=== PATIENT | male | born 1970 | race Caucasian/White ===

== ENCOUNTER 2022-08-21 12:14 | Inpatient (IN) | payer OTHER, SELFPAY ==
[2022-08-21] VITALS (19 sets, daily range): BP systolic 70–125; BP diastolic 47–100; PULSE 62–86; RESP 19–31; TEMP 33.2–37; O2SAT 99–100; BMI 22.9
--- NOTE | 2022-08-21 12:43 | EDS_ITS ---
HPI History of Present Illness Chief Complaint: General Illness Narrative Narrative: 52-year-old male past medical history of insulin-dependent diabetes, presents via EMS with mental status change, weakness, nausea and vomiting. History and physical is limited secondary to his mental status/patient condition. Per , he has not taken his insulin or Toujeo of which she is aware of the last 24 hours. His nausea and vomiting began a day or 2 ago, mainly yesterday morning, but subsided in the evening. This morning, when he awoke, he was weak and she states that his legs collapsed under him. He did not strike his head or lose consciousness but she states that he has been more confused today. She states that he is not been in diabetic ketoacidosis in the past of which she is aware. Patiently is mildly combative currently. Per EMS, blood sugar was in the 430s. [facility] Medical History (Updated 08/21/22 @ 13:54 by Billy Whelan MD) Santos's palsy Diabetes Home Medications insulin glargine U-300 conc 300 unit/mL (1.5 mL) subcutaneous pen (Toujeo SoloStar U-300 Insulin) 50 unit subcut DAILY 08/21/22 [History Last Taken Unknown] insulin lispro 100 unit/mL subcutaneous pen 15 unit subcut BID DIABETES 08/21/22 [History Last Taken Unknown] Allergy/AdvReac Type Severity Reaction Status Date / Time No Known Allergies Allergy Verified 08/21/22 12:24 Family History (Updated 08/21/22 @ 13:[address] Sean Ace MD) Other Diabetes Heart disease Surgical History (Updated 08/21/22 @ 14:[address] Sean Ace MD) Status post hernia repair Social History Smoking Status: Former smoker ROS ROS ED ROS Narrative Unable to obtain secondary to patient condition/mental status change. EXAM Physical Exam Narrative Exam Narrative: Afebrile. Vital signs noted. Mildly combative. HEENT: Normocephalic. Atraumatic. PERRL, EOMI. Neck soft and supple. No point tenderness or step off. Cardiovascular: Regular rate and rhythm. No murmurs, rubs, or gallops appreciated. Respiratory: No tachypnea. Lungs clear to auscultation bilaterally. Gastrointestinal: Abdomen soft, nontender, with normoactive bowel sounds. No rebound or guarding. Neurological: Awake. Alert. Nonfocal, nonlateralizing. Skin: No rash. Normal color. No pallor. Musculoskeletal: No pedal edema. Full range of motion extremities. Const Vital Signs: 08/21/22 12:15 08/21/22 12:25 08/21/22 13:17 Temperature 93 F L Temperature Source Axillary Pulse Rate 62 78 Respiratory Rate 21 H 20 H Respiratory Effort Normal Blood Pressure 112/100 H 70/55 L Blood Pressure Mean 104 60 Pulse Ox 100 100 Oxygen Delivery Method Nasal Cannula Room Air Oxygen Flow Rate (L/min) 2 08/21/22 14:08 08/21/22 14:09 08/21/22 14:43 Temperature 96.5 F L Temperature Source Temporal Pulse Rate 75 Respiratory Rate 27 H Respiratory Effort Blood Pressure 88/66 L 95/65 Blood Pressure Mean 73 75 Pulse Ox 99 100 Oxygen Delivery Method Room Air Oxygen Flow Rate (L/min) Sepsis Attestation Sepsis Alert: Yes Sepsis Attestation: Agree w/Sepsis (NO, dehydration from hyperglycemia/diabetic ketoacidosis.) MDM MDM MDM Narrative Medical decision making narrative: [id number] glucose reads high. DKA work-up was pursued. As he was bolused normal saline and bolused 14 units of lispro insulin then started on a drip. EKG obtained has too much baseline artifact, but was interpreted by myself as normal sinus rhythm at 69 bpm with bifascicular block, no STEMI. Chest x-ray interpreted by myself shows no evidence of acute process, no pneumothorax or infiltrate. Initial laboratory work shows elevated white count of 20.6, hemoglobin normal at 15.2 with hematocrit 53.8. Platelet count normal at 312. Venous blood gas shows a pH of 6.852 with a bicarb of 4.9. He was administered 1 ampoule of sodium bicarbonate intravenously. His electrolyte panel shows a sodium of 112 and a chloride of 69. I do feel that his sodium is excessively low secondary to his glucose of 1943. He did experience a drop in his blood pressure to 70/55 so IV boluses were continued to a total of 3 L. Second IV was placed. CO2 is low at 7.0 on his CMP with an anion gap of 36. BUN of 53 with creatinine of 5.06, no prior with which to compare. I do feel this is an acute kidney injury. There is a large acetone level noted in his blood. I do feel that he is in diabetic ketoacidosis given his low pH, and large acetone and excessively high sugars. Insulin drip is currently running. I will discuss the patient with Dr. Cole with intensive care and the hospitalist for admission to the ICU. Patient is in guarded condition. Critical care time 33 minutes. Patient did trigger sepsis alert given his hypotension and elevated white count of 20.6, but he is not tachycardic or febrile. I do feel this is more diabetic ketoacidosis and sepsis. Lab Data Attestation: I reviewed the patient's lab results. Labs: Laboratory Results - last 24 hr 08/21/22 08/21/22 08/21/22 12:19 12:19 12:19 WBC 20.6 H RBC 4.83 Hgb 15.2 Hct 53.8 MCV 111.4 H MCH 31.5 MCHC 28.3 L RDW Std Deviation 50.4 H RDW Coeff of Mika 12.0 Plt Count 312 MPV 10.2 Neut % (Auto) Not Reportable Absolute Neuts (auto) 15.9 H Absolute Lymphs (auto) 3.62 Total Counted 100 Neutrophils % (Manual) 73 H Band Neutrophils % 4 Lymphocytes % (Manual) 18 L Monocytes % (Manual) 1 Metamyelocytes % 1 Myelocytes % 3 H Diff Path Review May foll Platelet Estimate ADEQUATE RBC Morphology NORM C+C Sodium 112 L* Potassium 6.9 H* Chloride 69 L* Carbon Dioxide 7.0 L* Anion Gap 36 H BUN 53 H Creatinine 5.06 H Estim Creat Clear Calc 16.71 Est GFR (MDRD) Af Amer 16 L Est GFR (MDRD) Non-Af 13 L BUN/Creatinine Ratio 10.5 Glucose 1943 H* Calcium 8.2 L Total Bilirubin 1.00 AST 36 ALT 42 Alkaline Phosphatase 123 H Total Protein 7.2 Albumin 3.7 Globulin 3.5 Albumin/Globulin Ratio 1.1 Acetone Level LARGE H 08/21/22 13:59 WBC RBC Hgb Hct MCV MCH MCHC RDW Std Deviation RDW Coeff of Mika Plt Count MPV Neut % (Auto) Absolute Neuts (auto) Absolute Lymphs (auto) Total Counted Neutrophils % (Manual) Band Neutrophils % Lymphocytes % (Manual) Monocytes % (Manual) Metamyelocytes % Myelocytes % Diff Path Review Platelet Estimate RBC Morphology Sodium Potassium Chloride Carbon Dioxide Anion Gap BUN Creatinine Estim Creat Clear Calc Est GFR (MDRD) Af Amer Est GFR (MDRD) Non-Af BUN/Creatinine Ratio Glucose 1812 H* Calcium Total Bilirubin AST ALT Alkaline Phosphatase Total Protein Albumin Globulin Albumin/Globulin Ratio Acetone Level ABG Data ABG results: ABG 08/21/22 12:54 Specimen Type DRAKE VBG pH 6.85 L* VBG pO2 38 VBG HCO3 5 L VBG Total CO2 6 L VBG O2 Sat (Calc) 38 L VBG Base Excess -29 L POC Mix VBG pCO2 Pt Tmp 27.7 L Crit Call To/Read Back Yes Radiography Diagnostic Testing: Clinical Impression(s) from Imaging Studies Chest X-Ray 08/21/22 13:50 IMPRESSION: No radiographic evidence of acute cardiopulmonary disease. Electronically Signed: Jon Maldonado MD at 14:47 EST Reading Location ID and State: [address] [place] [address] , Service support , Critical Care Time Critical Care Time: Yes Critical care time (excluding procedures): 30-74 minutes (33), Including time spent:, Discussing w/Patient &/or Family/Md Allergy Immunology, Discussing w/Consultants, Arranging Admission or Transfer and Performing Direct Patient Care at Bedside Discharge Plan Dx/Rx/DC Orders Clinical Impression: Diabetic ketoacidosis, Mental status alteration, Acute kidney failure, Dehydration Disposition Disposition: Acute Care [facility]
[2022-08-21] MEDS: 0.9% Normal Saline 1,000 ML 999 ML IV ×2 (12:45→13:35)
[2022-08-21 12:51] LABS: Hematocrit 53.8 % (40-54); Hemoglobin 15.2 g/dL (13.0-16.5); Mean Corp Hgb Conc 28.3 g/dL (32-36); Mean Corpuscular Hgb 31.5 pg (27.0-32.0); Mean Corpuscular Volume 111.4 fL (80-94); Mean Platelet Vol. 10.2 fl (6.2-12.0); POSITIVE COUNT YES; POSITIVE MORPHOLOGY YES; Platelet Count 312 K/mm3 (150-450); RBC Distribution Width SD 50.4 fl (35.1-43.9); Red Blood Count 4.83 M/mm3 (4.6-6.2); White Blood Count 20.6 K/mm3 (4.4-11.0)
[2022-08-21] MEDS: LORazepam 2 MG/ML Syringe 1 MG IV (12:51)
[2022-08-21 13:01] LABS: Blood Gas Specimen Type VEN; VBG BASE EXCESS -29 mmol/L (-1.0-3.5); VBG Bicarbonate 5 mmol/L (22-26); VBG PO2 38 mmHg (25-40); VBG SO2 38 % (50-70); VBG TCO2 6 mmol/L (23-33); VBG pCO2 27.7 mmHg (41-51); VBG pH 6.85 (7.32-7.42)
[2022-08-21 13:02] LABS: Differential Indicated MANUAL DIFF
[2022-08-21] MEDS: Sodium Bicarbonate 8.4% 50 ML Syringe 50 MEQ IV ×2 (13:16→20:34)
[2022-08-21 13:20] LABS: ALB/GLOB Ratio 1.1 RATIO (0.9-2.4); AST(SGOT) 36 U/L (15-37); Alanine Aminotransfer ALT/SGPT 42 U/L (16-61); Albumin, Serum 3.7 g/dL (3.2-5.0); Alkaline Phosphatase 123 U/L (45-117); Anion Gap 36 (5-15); BUN 53 mg/dL (7-18); BUN/Creat Ratio 10.5 RATIO (10-20); Calcium,Total 8.2 mg/dL (8.5-10.1); Chloride 69 mmol/L (98-107); Creatinine, Serum 5.06 mg/dL (0.70-1.30); EST Glomerular Filtration Rate 13 mL/min (>60); Est Glom Filt Rate - Afr Amer 16 mL/min (>60); Estimated Creatinine Clearance 16.71 ml/min; Globulin 3.5 g/dL (2.2-4.2); Glucose 1943 mg/dL (74-106); Potassium 6.9 mmol/L (3.5-5.1); Protein, Total 7.2 g/dL (6.4-8.2); Sodium Level 112 mmol/L (136-145)
[2022-08-21 13:26] LABS: Lymphocyte 18 % (19-41); Metamyelocyte 1 % (0-1); Monocyte 1 % (0-10); Myelocyte 3 % (0-0); Neutrophil-Band 4 % (0-5); Neutrophil-Segmented 73 % (47-70); Platelet Estimate ADEQUATE (ADEQ); Red Cell Morphology NORM C+C NORMAL (NORM C&C); Total Cells Counted 100 (MANUAL DIFF)
[2022-08-21 13:27] LABS: Absolute Lymphocyte Count 3.62 X10^3/uL (0.83-4.51); Absolute Neutrophil Count 15.9 X10^3/uL (2.0-7.7)
--- NOTE | 2022-08-21 13:35 | PCM.HP.STD ---
HPI - General HPI Narrative DANIAL GARCIA, is a 52 M who presents to the hospital with altered mental status. He cannot provide much history cements the history was obtained by the and chart review. He has been having some nausea and vomiting for the last several days and has not taken his insulin, for at least the last 24 hours according to the . She stated that his generalized illness started about 2 days ago and he has been slowly getting worse. He is a type I diabetic and he is not in our computer system so we do not have any baseline labs. [facility] Medical History (Updated 08/21/22 @ 13:54 by Billy Whelan MD) Santos's palsy Diabetes Allergy/AdvReac Type Severity Reaction Status Date / Time No Known Allergies Allergy Verified 08/21/22 12:24 Family History (Updated 08/21/22 @ 13:[address] Sean Ace MD) Other Diabetes Heart disease Surgical History (Updated 08/21/22 @ 14:[address] Sean Ace MD) Status post hernia repair Social History Smoking Status: Former smoker ROS Review of Systems ROS Unobtainable: due to mental status Vital Signs Vital Signs Vital Signs: 08/21/22 12:15 08/21/22 12:25 08/21/22 13:17 Temperature 93 F L Temperature Source Axillary Pulse Rate 62 78 Respiratory Rate 21 H 20 H Respiratory Effort Normal Blood Pressure 112/100 H 70/55 L Blood Pressure Mean 104 60 Pulse Ox 100 100 Oxygen Delivery Method Nasal Cannula Room Air Oxygen Flow Rate (L/min) 2 Weight Weight: 150 lb 12.739 oz Body Mass Index (BMI) 22.9 Physical Exam Narrative General: Confused, agitated, will not open eyes to voice HEENT: Atraumatic, PERRLA, EOMI, Normocephalic Oral: Dry Mucosa Neck: Supple, No JVD Lungs: Clear to auscultation, Normal air movement, No rhonchi, No wheeze, No rales Cardiovascular: Regular rate, Regular Rhythm, Normal S1, Normal S2, No murmurs Abdomen: Soft, Non Tender, Non-Distended, No Hepato-splenomegaly Extremities: No edema, Capillary Refill Less than 3 Seconds Skin: No rashes, No breakdown Musculoskeletal: No Tenderness to Palpation of Joints or Extremities Neurological: Moves all extremities Psych/Mental Status: agitated Results Lab / Micro Data Result Diagrams: 08/21/22 12:19 08/21/22 12:19 Labs: Laboratory Results - last 24 hr 08/21/22 12:19: WBC 20.6 H, RBC 4.83, Hgb 15.2, Hct 53.8, MCV 111.4 H, MCH 31.5, MCHC 28.3 L, RDW Std Deviation 50.4 H, RDW Coeff of Mika 12.0, Plt Count 312, MPV 10.2, Neut % (Auto) Not Reportable, Absolute Neuts (auto) 15.9 H, Absolute Lymphs (auto) 3.62, Total Counted 100, Neutrophils % (Manual) 73 H, Band Neutrophils % 4, Lymphocytes % (Manual) 18 L, Monocytes % (Manual) 1, Metamyelocytes % 1, Myelocytes % 3 H, Diff Path Review December, Platelet Estimate ADEQUATE, RBC Morphology NORM C+C 08/21/22 12:19: Sodium 112 L*, Potassium 6.9 H*, Chloride 69 L*, Carbon Dioxide 7.0 L*, Anion Gap 36 H, BUN 53 H, Creatinine 5.06 H, Estim Creat Clear Calc 16.71, Est GFR (MDRD) Af Amer 16 L, Est GFR (MDRD) Non-Af 13 L, BUN/Creatinine Ratio 10.5, Glucose 1943 H*, Calcium 8.2 L, Total Bilirubin 1.00, AST 36, ALT 42, Alkaline Phosphatase 123 H, Total Protein 7.2, Albumin 3.7, Globulin 3.5, Albumin/Globulin Ratio 1.1 08/21/22 12:19: Acetone Level LARGE H ABG Data ABG results: ABG 08/21/22 12:54 Specimen Type DRAKE VBG pH 6.85 L* VBG pO2 38 VBG HCO3 5 L VBG Total CO2 6 L VBG O2 Sat (Calc) 38 L VBG Base Excess -29 L POC Mix VBG pCO2 Pt Tmp 27.7 L Crit Call To/Read Back Yes Assessment & Plan Assessment/Plan (1) Diabetic ketoacidosis: (2) Acute kidney failure: PLAN: Plan 1. Gastroenteritis with DKA and GONSALO ? According to family he is inconsistent with taking his insulin some months she is very consistent and proactive in others he is not ? She is lost 25 pounds according to the and his doctor thinks is due to having elevated ketones ? He has received 3 L of fluid in the ER as well as sodium bicarb. We will continue with aggressive fluid hydration as well as an insulin drip ? We will continue with the DKA protocol in the ICU, his pressure is responsive to fluids so can hold off on placement of a central line for pressors ? Leukocytosis is reactive ? She has pseudohyponatremia to 112 DVT: SCDs Charges/Coding Visit Charges Inpatient E&M: 48288 Init Hosp L2
--- NOTE | 2022-08-21 13:50 | RAD_ITS ---
INDICATION: Fever and cough EXAMINATION/TECHNIQUE: X-RAY - XR Chest 1 View COMPARISON: None. FINDINGS: LINES/DEVICES: EKG leads overlie the chest LUNGS: No consolidation, edema or effusion. No pneumothorax. MEDIASTINUM AND CARDIOVASCULAR STRUCTURES: Cardiac silhouette not enlarged. Central airways and mediastinal contour are unremarkable. BONES AND SOFT TISSUES: Unremarkable. RAD/Chest 1 View (Portable) IMPRESSION: No radiographic evidence of acute cardiopulmonary disease. Electronically Signed: Jon Maldonado MD at 14:47 EST ,
[2022-08-21 14:27] LABS: Glucose 1812 mg/dL (74-106)
[2022-08-21] MEDS: 0.9% Normal Saline 1,000 ML 1000 ML IV ×2 (14:30→14:37)
[2022-08-21 16:01] LABS: Glucose 1605 mg/dL (74-106)
--- NOTE | 2022-08-21 16:01 | ED.RN ---
lab called glucose 1605. DR GAYTAN AWARE
[2022-08-21] MEDS: 0.9% Normal Saline 1,000 ML 200 ML IV (16:03)
[2022-08-21 16:10] LABS: Mucous, Urine 0 SEEN /hpf (<or=2+)
[2022-08-21 16:23] LABS: Color, Urine Straw (Yellow); Glucose, Dipstick 1000 mg/dl (Normal); Ketone-Dipstick 50 mg/dl (Negative); Leukocyte Esterase-Dipstick Negative /ul (Negative); Nitrite-Dipstick Negative (Negative); Occult Blood-Urine 150 /ul (Negative); Protein-Dipstick 100 mg/dl (Negative); Specific Gravity, Urine 1.015 (1.002-1.030); Urine Bilirubin Dipstick Negative (Negative); Urine Clarity Cloudy (Clear); Urine Urobilinogen Normal (Normal)
[2022-08-21 16:40] LABS: Red Blood Cells-Urine 0-5 SEEN /hpf (0-5)
[2022-08-21 16:46] LABS: Bacteria 2+ /hpf (None Seen); Fine Granular Cast- Urine 0-5 SEEN /lpf (0-5); Hyaline Cast 0-5 SEEN /lpf (0-5); Squamous Epithelial Cells - UA 0-5 SEEN /hpf (0-5)
[2022-08-21 16:47] LABS: White Blood Cells 5-10 SEEN /hpf (0-5)
[2022-08-21 17:15] LABS: Bedside Glucose > 500 mg/dL (74-106)
[2022-08-21 17:15] LABS: Bedside Glucose > 500 mg/dL (74-106)
[2022-08-21 17:41] LABS: Glucose 1511 mg/dL (74-106)
[2022-08-21] MEDS: 0.9% Normal Saline 1,000 ML 500 ML IV (17:55)
[2022-08-21 19:28] LABS: Anion Gap 25 (5-15); BUN 53 mg/dL (7-18); BUN/Creat Ratio 11.1 RATIO (10-20); Calcium,Total 6.9 mg/dL (8.5-10.1); Chloride 95 mmol/L (98-107); Creatinine, Serum 4.79 mg/dL (0.70-1.30); EST Glomerular Filtration Rate 14 mL/min (>60); Est Glom Filt Rate - Afr Amer 17 mL/min (>60); Estimated Creatinine Clearance 17.65 ml/min; Glucose 1327 mg/dL (74-106); Sodium Level 129 mmol/L (136-145)
[2022-08-21] MEDS: Ondansetron 4 MG/2 ML Vial IV (20:21)
[2022-08-21] MEDS: 0.9% Saline Lock 10 ML Syringe IV ×2 (20:22→22:51)
[2022-08-21 21:08] LABS: Phosphorus 4.2 mg/dL (2.5-4.9)
[2022-08-21 21:10] LABS: Magnesium 3.3 mg/dL (1.6-2.6)
[2022-08-21 21:20] LABS: Glucose 1206 mg/dL (74-106)
[2022-08-21 22:00] LABS: Glucose 1191 mg/dL (74-106)
[2022-08-21] MEDS: 0.9% Normal Saline 1,000 ML 250 ML IV (22:51)
[2022-08-21 22:55] LABS: Allen Test Positive; Base Excess -18 mmol/L (-2 to +2); Bicarbonate 9.4 mmol/L (22-26); Blood Gas Specimen Type ART; PO2 96 mmHG (75-100); SITE R Radial; SO2 97 % (95-99); Total Carbon Dioxide 10 mmol/L; pCO2 20.7 mmHg (35-45); pH 7.27 (7.35-7.45)
[2022-08-21 23:23] LABS: Glucose 1077 mg/dL (74-106)
[2022-08-22] VITALS (31 sets, daily range): BP systolic 46–150; BP diastolic 29–80; PULSE 65–105; RESP 11–30; TEMP 37.2–38.2; O2SAT 89–100
[2022-08-22 00:17] LABS: Glucose 1058 mg/dL (74-106)
[2022-08-22 01:04] LABS: Anion Gap 20 (5-15); BUN 51 mg/dL (7-18); BUN/Creat Ratio 11.6 RATIO (10-20); Calcium,Total 6.8 mg/dL (8.5-10.1); Chloride 107 mmol/L (98-107); EST Glomerular Filtration Rate 15 mL/min (>60); Est Glom Filt Rate - Afr Amer 18 mL/min (>60); Estimated Creatinine Clearance 19.22 ml/min; Glucose 898 mg/dL (74-106); Potassium 3.7 mmol/L (3.5-5.1); Sodium Level 141 mmol/L (136-145)
[2022-08-22] MEDS: KCL 20MEQ in 0.45%NS 20 MEQ/1,000 ML IV.SOLN. 175 MEQ IV (01:21)
[2022-08-22] MEDS: proCHLORPERazine 10 MG/2 ML Vial 5 MG IV (01:21)
[2022-08-22] MEDS: Potassium Chloride 10mEq/100mL 10 MEQ/100 ML IV.SOLN. 100 MEQ IV BOLUS ×5 (01:39→11:58)
[2022-08-22] MEDS: 0.9% Saline Lock 10 ML Syringe IV ×4 (01:40→12:25)
[2022-08-22 02:13] LABS: Glucose 870 mg/dL (74-106)
[2022-08-22 03:16] LABS: Glucose 785 mg/dL (74-106)
[2022-08-22 04:11] LABS: Glucose 706 mg/dL (74-106)
[2022-08-22] MEDS: Ondansetron 4 MG/2 ML Vial IV ×2 (04:18→12:33)
[2022-08-22 04:56] LABS: Absolute Lymphocyte Count 0.52 X10^3/uL (0.83-4.51); Absolute Neutrophil Count 6.9 X10^3/uL (2.0-7.7); Basophil# 0.02 X10^3/uL; Basophil% 0.2 % (0-1); Hematocrit 35.8 % (40-54); Hemoglobin 13.2 g/dL (13.0-16.5); Lymphocyte # 0.52 X10^3/ul (0.83-4.51); Lymphocyte % 6.3 % (19-41); Mean Corp Hgb Conc 36.9 g/dL (32-36); Mean Corpuscular Hgb 31.3 pg (27.0-32.0); Mean Corpuscular Volume 84.8 fL (80-94); Mean Platelet Vol. 9.2 fl (6.2-12.0); Monocyte% 7.3 % (0-10); NRBC Flagged by Analyzer 0 % (0-5); Neutrophil # 6.94 X10^3/uL (2.7-7.7); Neutrophil % 83.9 % (47-70); POSITIVE DIFFERENTIAL YES; Platelet Count 139 K/mm3 (150-450); RBC Distribution Width CV 11.7 % (11.6-14.6); RBC Distribution Width SD 35.7 fl (35.1-43.9); Red Blood Count 4.22 M/mm3 (4.6-6.2); White Blood Count 8.3 K/mm3 (4.4-11.0)
[2022-08-22 05:06] LABS: Differential Indicated SCAN CRITERIA MET
[2022-08-22 05:15] LABS: Anion Gap 12 (5-15); BUN 51 mg/dL (7-18); BUN/Creat Ratio 11.8 RATIO (10-20); Calcium,Total 7.2 mg/dL (8.5-10.1); Chloride 114 mmol/L (98-107); Creatinine, Serum 4.34 mg/dL (0.70-1.30); EST Glomerular Filtration Rate 15 mL/min (>60); Est Glom Filt Rate - Afr Amer 19 mL/min (>60); Estimated Creatinine Clearance 19.48 ml/min; Glucose 639 mg/dL (74-106); Potassium 3.5 mmol/L (3.5-5.1); Sodium Level 145 mmol/L (136-145)
[2022-08-22 05:29] LABS: Cholesterol 154 mg/dL (200); High Density Lipoprotein 48 mg/dL; Lipase 778 U/L (73-393); Triglycerides 167 mg/dL; Very Low Density Lipoprotein 33 mg/dL (5-40)
[2022-08-22] MEDS: Haloperidol Lactate 5 MG/ML Vial 1 MG IV ×2 (05:30→12:25)
--- NOTE | 2022-08-22 05:50 | PCM.HOSP.N ---
Hospitalist Note Patient with onset severe agitation. Attempting to get out of bed and violent toward staff. Will initiate haldol and adjust dosing pending first initial response to lower dose.
[2022-08-22 06:14] LABS: Amphetamine Urine VISTA NEGATIVE (<1000 ng/mL); Barbiturate Urine VISTA NEGATIVE (< 200 ng/mL); Benzodiazepine Urine VISTA NEGATIVE (< 200 ng/mL); Cocaine Urine VISTA NEGATIVE (< 300 ng/mL); Ecstacy Urine VISTA NEGATIVE (< 500 ng/mL); Methadone Urine VISTA NEGATIVE (< 300 ng/mL); PCP Urine VISTA NEGATIVE (< 25 ng/mL); THC Urine VISTA NEGATIVE (< 50 ng/mL); Vista UDS pH Range 5
--- NOTE | 2022-08-22 06:21 | EX.PCM.CONCC ---
Assessment & Plan Assessment/Plan (1) Diabetic ketoacidosis: PLAN: Plan RECOMMENDATIONS: 1. Continue management of DKA per protocol with continuous insulin infusion and supplemental IV fluids. 2. Once anion gap has been closed x2, transition to basal and sliding scale insulin coverage. 3. The patient should remain n.p.o. for now. 4. Aggressive electrolyte repletion as needed. IMPRESSIONS: 1. Diabetic ketoacidosis Likely secondary to outpatient noncompliance with prescribed medical therapy. The patient presented with significant DKA with profound anion gap metabolic acidosis. He has responded appropriately to aggressive fluid resuscitation, electrolyte repletion and continuous insulin infusion. This regimen will be continued until anion gap is closed x2. Following this, the patient will be transition to basal and sliding scale insulin coverage. He will require diabetic education once medically stabilized. Hemoglobin A1c is pending. 2. Encephalopathy Most likely metabolic in etiology. Anticipate slow recovery with stabilization of his underlying metabolic derangements. Continue supportive measures as noted above. 3. Acute kidney injury Most likely prerenal in etiology in the setting of significant intravascular volume depletion due to diabetic ketoacidosis. The patient is being aggressively fluid resuscitated. Creatinine is slowly improving with volume expansion. Continue to monitor urine output. No current indication for renal replacement therapy. This note was generated with [employer] dictation software. It may contain incorrect words, spelling, and punctuation that were not noted in checking the note before signing. HPI Consult Data Date of Consult: 08/23/22 HPI Narrative Reason for Consultation: DKA HPI Narrative: The patient is a 52-year-old male, with a history as outlined below, who presented to the emergency department on August 21 with altered mentation. According to the patient's , he was recently diagnosed with diabetes mellitus and has had questionable outpatient compliance with his medication regimen. The patient was experiencing associated nausea and vomiting prior to his hospitalization. On presentation to the emergency department, the patient was documented to have a temperature of 93 ?F. He was otherwise hemodynamically stable on room air. Initial laboratory evaluation revealed a white blood cell count of 20,000. Initial chemistry profile was notable for a sodium of 112, potassium of 6.9, chloride of 69, bicarbonate of 7.0, anion gap of 36 and creatinine of 5.06. Serum glucose was elevated at 1943. Urinalysis was negative for nitrites and leukocyte Estrace. 2+ urine bacteria was noted. Toxicology screen was negative with a large serum acetone level noted. Chest x-ray demonstrated no acute cardiopulmonary process. In the emergency department, the patient received supplemental IV fluid hydration was started on a continuous insulin infusion. He was subsequently admitted to the medical intensive care unit for further management of his DKA. [facility] Medical History (Updated 08/21/22 @ 13:54 by Billy Whelan MD) Santos's palsy Diabetes Home Medications insulin glargine U-300 conc 300 unit/mL (1.5 mL) subcutaneous pen (Toujeo SoloStar U-300 Insulin) 50 unit subcut DAILY 08/21/22 [History Last Taken Unknown] insulin lispro 100 unit/mL subcutaneous pen 15 unit subcut BID DIABETES 08/21/22 [History Last Taken Unknown] Allergy/AdvReac Type Severity Reaction Status Date / Time No Known Allergies Allergy Verified 08/21/22 12:24 Family History Other Diabetes Heart disease Surgical History Status post hernia repair Social History Smoking Status: Former smoker ROS Review of Systems ROS Unobtainable: due to mental status Physical Exam Const Constitutional Narrative: The patient is somewhat lethargic this morning and speaking in a nonsensical manner. HEENT normocephalic and head/scalp atraumatic HEENT Narrative: Dry mucous membranes Eyes PERRL, EOMs intact bilaterally and conjunctivae normal Neck supple General: trachea midline Chest inspection of chest normal Resp normal respiratory effort Auscultation: Negative for rales, rhonchi or wheezes Cardio S1 normal heart sound and S2 normal heart sound Rate: tachycardic GI normal to inspection, nondistended, normoactive bowel sounds Extremity no clubbing, cyanosis or edema Skin no rashes or lesions noted Neuro no focal motor deficits Psych Activity / Motor Behavior: restless Lab / Micro Data Result Diagrams: 08/23/22 04:51 08/23/22 04:51 Labs: Laboratory Results - last 24 hr 08/21/22 12:19: WBC 20.6 H, RBC 4.83, Hgb 15.2, Hct 53.8, MCV 111.4 H, MCH 31.5, MCHC 28.3 L, RDW Std Deviation 50.4 H, RDW Coeff of Mika 12.0, Plt Count 312, MPV 10.2, Neut % (Auto) Not Reportable, Absolute Neuts (auto) 15.9 H, Absolute Lymphs (auto) 3.62, Total Counted 100, Neutrophils % (Manual) 73 H, Band Neutrophils % 4, Lymphocytes % (Manual) 18 L, Monocytes % (Manual) 1, Metamyelocytes % 1, Myelocytes % 3 H, Diff Path Review December, Platelet Estimate ADEQUATE, RBC Morphology NORM C+C 08/21/22 12:19: Sodium 112 L*, Potassium 6.9 H*, Chloride 69 L*, Carbon Dioxide 7.0 L*, Anion Gap 36 H, BUN 53 H, Creatinine 5.06 H, Estim Creat Clear Calc 16.71, Est GFR (MDRD) Af Amer 16 L, Est GFR (MDRD) Non-Af 13 L, BUN/Creatinine Ratio 10.5, Glucose 1943 H*, Calcium 8.2 L, Total Bilirubin 1.00, AST 36, ALT 42, Alkaline Phosphatase 123 H, Total Protein 7.2, Albumin 3.7, Globulin 3.5, Albumin/Globulin Ratio 1.1 08/21/22 12:19: Acetone Level LARGE H 08/21/22 12:31: POC Glucose > 500 H* 08/21/22 13:39: POC Glucose > 500 H* 08/21/22 13:59: Glucose 1812 H* 08/21/22 14:33: Sodium Cancelled, Potassium Cancelled, Chloride Cancelled, Carbon Dioxide Cancelled, Anion Gap Cancelled, BUN Cancelled, Creatinine Cancelled, Estim Creat Clear Calc Cancelled, Est GFR (MDRD) Af Amer Cancelled, Est GFR (MDRD) Non-Af Cancelled, BUN/Creatinine Ratio Cancelled, Glucose Cancelled, Calcium Cancelled 08/21/22 15:28: Glucose 1605 H* 08/21/22 15:37: Urine Color Straw, Urine Clarity Cloudy, Urine pH 6.0, Ur Specific Blanding 1.015, Urine Protein 100 H, Urine Glucose (UA) 1000 H, Urine Ketones 50 H, Urine Occult Blood 150 H, Urine Nitrite Negative, Urine Bilirubin Negative, Urine Urobilinogen Normal, Ur Leukocyte Esterase Negative, Urine RBC 0-5 SEEN, Urine WBC 5-10 SEEN, Ur Squamous Epith Cells 0-5 SEEN, Urine Bacteria 2+, Hyaline Casts 0-5 SEEN, Fine Granular Casts 0-5 SEEN, Urine Mucus 0 SEEN 08/21/22 17:05: Glucose 1511 H* 08/21/22 18:58: Sodium 129 L, Potassium 5.0, Chloride 95 L, Carbon Dioxide 9.0 L*, Anion Gap 25 H, BUN 53 H, Creatinine 4.79 H, Estim Creat Clear Calc 17.65, Est GFR (MDRD) Af Amer 17 L, Est GFR (MDRD) Non-Af 14 L, BUN/Creatinine Ratio 11.1, Glucose 1327 H*, Calcium 6.9 L 08/21/22 18:58: Glucose Cancelled 08/21/22 18:58: Magnesium 3.3 H 08/21/22 18:58: Phosphorus 4.2 08/21/22 20:30: Glucose 1206 H* 08/21/22 21:38: Glucose 1191 H* 08/21/22 22:50: Glucose 1077 H* 08/21/22 23:38: Glucose 1058 H* 08/22/22 00:40: Sodium 141, Potassium 3.7, Chloride 107, Carbon Dioxide 14.0 L, Anion Gap 20 H, BUN 51 H, Creatinine 4.40 H, Estim Creat Clear Calc 19.22, Est GFR (MDRD) Af Amer 18 L, Est GFR (MDRD) Non-Af 15 L, BUN/Creatinine Ratio 11.6, Glucose 898 H*, Calcium 6.8 L 08/22/22 01:35: Glucose 870 H* 08/22/22 02:35: Glucose 785 H* 08/22/22 03:30: Glucose 706 H* 08/22/22 04:45: Sodium 145, Potassium 3.5, Chloride 114 H, Carbon Dioxide 19.0 L, Anion Gap 12, BUN 51 H, Creatinine 4.34 H, Estim Creat Clear Calc 19.48, Est GFR (MDRD) Af Amer 19 L, Est GFR (MDRD) Non-Af 15 L, BUN/Creatinine Ratio 11.8, Glucose 639 H*, Calcium 7.2 L 08/22/22 04:45: WBC 8.3, RBC 4.22 L, Hgb 13.2, Hct 35.8 L, MCV 84.8 D, MCH 31.3, MCHC 36.9 H D, RDW Std Deviation 35.7, RDW Coeff of Mika 11.7, Plt Count 139 L, MPV 9.2, Immature Gran % (Auto) 2.300 H, Neut % (Auto) 83.9 H, Lymph % (Auto) 6.3 L, Randall % (Auto) 7.3, Eos % (Auto) 0.0, Baso % (Auto) 0.2, Absolute Neuts (auto) 6.9, Absolute Lymphs (auto) 0.52 L, Nucleated RBC % 0 08/22/22 04:45: Triglycerides 167, Cholesterol 154, LDL Cholesterol 73, VLDL Cholesterol 33, HDL Cholesterol 48, Lipase 778 H 08/22/22 05:45: Urine Opiates Screen NEGATIVE, Urine Methadone Screen NEGATIVE, Ur Barbiturates Screen NEGATIVE, Ur Phencyclidine Scrn NEGATIVE, Ur Amphetamines Screen NEGATIVE, MDMA (Ecstasy) Screen NEGATIVE, U Benzodiazepines Scrn NEGATIVE, Urine Cocaine Screen NEGATIVE, U Cannabinoids Screen NEGATIVE, Ur Drug Screen Comment ABG Data ABG results: ABG 08/21/22 08/21/22 12:54 22:52 Specimen Type DRAKE ART Sample Site R Radial pH 7.27 L Bicarbonate Actual 9.4 L Total CO2 10 Base Excess -18 L O2 Saturation 97 ABG pCO2 20.7 L ABG pO2 96 Adeel Test Positive VBG pH 6.85 L* VBG pO2 38 VBG HCO3 5 L VBG Total CO2 6 L VBG O2 Sat (Calc) 38 L VBG Base Excess -29 L POC Mix VBG pCO2 Pt Tmp 27.7 L Crit Call To/Read Back Yes Radiology Impression Chest X-Ray 08/21/22 13:50 IMPRESSION: No radiographic evidence of acute cardiopulmonary disease. Electronically Signed: Jon Maldonado MD at 14:47 EST , Charges/Coding Visit Charges Inpatient E&M: 81148 Init Hosp L3
[2022-08-22 06:22] LABS: Glucose 574 mg/dL (74-106)
[2022-08-22] MEDS: Haloperidol Lactate 5 MG/ML Vial 2 MG IV (06:24)
[2022-08-22 07:01] LABS: Glucose 514 mg/dL (74-106)
[2022-08-22] MEDS: Ziprasidone IM 20 MG/ML VIAL IM (07:13)
[2022-08-22] MEDS: Lactated Ringers 1,000 ML 999 ML IV ×4 (07:59→16:30)
[2022-08-22 08:16] LABS: Hemoglobin A1c 11.8 % (3.8-5.6)
[2022-08-22] MEDS: KCL 20MEQ in 0.45%NS 20 MEQ/1,000 ML IV.SOLN. 150 MEQ IV (09:42)
[2022-08-22 10:09] LABS: Anion Gap 9 (5-15); BUN 48 mg/dL (7-18); BUN/Creat Ratio 12.3 RATIO (10-20); Calcium,Total 7.5 mg/dL (8.5-10.1); Chloride 118 mmol/L (98-107); EST Glomerular Filtration Rate 17 mL/min (>60); Est Glom Filt Rate - Afr Amer 21 mL/min (>60); Estimated Creatinine Clearance 21.68 ml/min; Glucose 325 mg/dL (74-106); Sodium Level 149 mmol/L (136-145)
--- NOTE | 2022-08-22 10:16 | RAD_ITS ---
INDICATION: Fever EXAMINATION/TECHNIQUE: X-RAY - XR Chest 1 View COMPARISON: Yesterday FINDINGS: Support devices: None. Similar extent and distribution of hazy bilateral opacities. No sizable pleural effusion or pneumothorax. Heart size is stable. Bones and soft tissues are unchanged. RAD/Chest 1 View (Portable) IMPRESSION: No significant interval change with similar extent and distribution of trace bilateral opacities which could relate to atelectasis and/or multifocal pneumonia. Electronically Signed: Alex Ordoñez, at 11:05 EST ,
[2022-08-22 10:20] LABS: Bedside Glucose 391 mg/dL (74-106)
[2022-08-22 10:20] LABS: Bedside Glucose 312 mg/dL (74-106)
[2022-08-22 10:20] LABS: Bedside Glucose 341 mg/dL (74-106)
[2022-08-22 11:30] LABS: Bedside Glucose 284 mg/dL (74-106)
--- NOTE | 2022-08-22 12:15 | CHAPLAIN ---
Type of Pastoral Visit _x__ Initial Visit ___ Follow-up Visit ___ On-call Visit ___ General Patient Visit ___ Spiritual Assessment ___ Family Conference ___ Bereavement ___ Rapid Response ___ Code Blue ___ Other (describe below) Pastoral Care Referral From ___ Patient _x__ Family ___ Nurse ___ Physician ___ Knitter Mechanic ___ Paper Rewinder ___ Other (describe below) Sacrament/Intervention ___ Active listening ___ Anointing ___ Pentecostal ___ Bereavement ___ Communion ___ Aleena exploration ___ ___ Life review _x__ Prayer ___ Reconciliation ___ Sacrament of Sick _x__ Supportive presence ___ Wedding ___ Other (describe below) Pastoral Comments patient is sleeping and per report of spouse he has been confused; spouse and daughter are in the room; spouse states that this is first time of illness for patient; spouse is a bit tearful; offer of support for family; presence and prayer welcomed; pt and spouse attend a local mu-ism
[2022-08-22 12:20] LABS: Pathologist Review Reviewed
[2022-08-22 12:20] LABS: Bedside Glucose 249 mg/dL (74-106)
[2022-08-22] MEDS: Dext 5%-0.45% NS 1,000 ML 150 ML IV (12:24)
[2022-08-22 13:30] LABS: Bedside Glucose 288 mg/dL (74-106)
[2022-08-22] MEDS: Insulin Lispro 100 UNIT/ML INSULN.PEN SC ×2 (14:24→17:24)
[2022-08-22] MEDS: Insulin Glargine-YFGN 100 UNIT/ML Pen 25 UNIT SC (14:25)
[2022-08-22 14:36] LABS: Bedside Glucose 279 mg/dL (74-106)
--- NOTE | 2022-08-22 14:41 | PN.HOSP_ITS ---
Subjective Subjective Developed some agitation and restlessness overnight, discussed with the family he does not drink fairly heavily 4-5 times a week. We will continue with the Precedex drip Objective Data Objective Data Vital Signs: Vital Signs Temp Pulse Resp BP Pulse Ox O2 Del Method O2 Flow Rate 100.5 F H 87 19 H 103/62 96 Room Air 2 08/22/22 14:00 08/22/22 14:00 08/22/22 14:00 08/22/22 14:00 08/22/22 14:00 08/22/22 14:00 08/21/22 12:15 Oxygen Flow Rate (L/min) 2 Oxygen Delivery Method Room Air Weight: 154 lb 5.177 oz Body Mass Index (BMI) 22.9 Intake & Output: Intake and Output for Last 24 Hours 08/21/22 08/22/22 08/23/22 03:59 03:59 03:59 Intake Total 6754.27 / 6754.27 4273.42 / 4273.42 Output Total 1450 / 1450 1800 / 1800 Balance 5304.27 / 5304.27 2473.42 / 2473.42 Lab / Micro Data Result Diagrams: 08/22/22 04:45 08/22/22 09:40 Labs: Laboratory Results - last 24 hr 08/21/22 12:19: Diff Path Review Reviewed 08/21/22 12:31: POC Glucose > 500 H* 08/21/22 13:39: POC Glucose > 500 H* 08/21/22 14:33: Sodium Cancelled, Potassium Cancelled, Chloride Cancelled, Carbon Dioxide Cancelled, Anion Gap Cancelled, BUN Cancelled, Creatinine Cancelled, Estim Creat Clear Calc Cancelled, Est GFR (MDRD) Af Amer Cancelled, Est GFR (MDRD) Non-Af Cancelled, BUN/Creatinine Ratio Cancelled, Glucose Cancelled, Calcium Cancelled 08/21/22 15:28: Glucose 1605 H* 08/21/22 15:37: Urine Color Straw, Urine Clarity Cloudy, Urine pH 6.0, Ur Specific [place] 1.015, Urine Protein 100 H, Urine Glucose (UA) 1000 H, Urine Ketones 50 H, Urine Occult Blood 150 H, Urine Nitrite Negative, Urine Bilirubin Negative, Urine Urobilinogen Normal, Ur Leukocyte Esterase Negative, Urine RBC 0-5 SEEN, Urine WBC 5-10 SEEN, Ur Squamous Epith Cells 0-5 SEEN, Urine Bacteria 2+, Hyaline Casts 0-5 SEEN, Fine Granular Casts 0-5 SEEN, Urine Mucus 0 SEEN 08/21/22 17:05: Glucose 1511 H* 08/21/22 18:58: Sodium 129 L, Potassium 5.0, Chloride 95 L, Carbon Dioxide 9.0 L*, Anion Gap 25 H, BUN 53 H, Creatinine 4.79 H, Estim Creat Clear Calc 17.65, Est GFR (MDRD) Af Amer 17 L, Est GFR (MDRD) Non-Af 14 L, BUN/Creatinine Ratio 11.1, Glucose 1327 H*, Calcium 6.9 L 08/21/22 18:58: Glucose Cancelled 08/21/22 18:58: Magnesium 3.3 H 08/21/22 18:58: Phosphorus 4.2 08/21/22 20:30: Glucose 1206 H* 08/21/22 21:38: Glucose 1191 H* 08/21/22 22:50: Glucose 1077 H* 08/21/22 23:38: Glucose 1058 H* 08/22/22 00:40: Sodium 141, Potassium 3.7, Chloride 107, Carbon Dioxide 14.0 L, Anion Gap 20 H, BUN 51 H, Creatinine 4.40 H, Estim Creat Clear Calc 19.22, Est GFR (MDRD) Af Amer 18 L, Est GFR (MDRD) Non-Af 15 L, BUN/Creatinine Ratio 11.6, Glucose 898 H*, Calcium 6.8 L 08/22/22 01:35: Glucose 870 H* 08/22/22 02:35: Glucose 785 H* 08/22/22 03:30: Glucose 706 H* 08/22/22 04:45: Sodium 145, Potassium 3.5, Chloride 114 H, Carbon Dioxide 19.0 L , Anion Gap 12, BUN 51 H, Creatinine 4.34 H, Estim Creat Clear Calc 19.48, Est GFR (MDRD) Af Amer 19 L, Est GFR (MDRD) Non-Af 15 L, BUN/Creatinine Ratio 11.8, Glucose 639 H*, Calcium 7.2 L 08/22/22 04:45: WBC 8.3, RBC 4.22 L, Hgb 13.2, Hct 35.8 L, MCV 84.8 D, MCH 31.3, MCHC 36.9 H D, RDW Std Deviation 35.7, RDW Coeff of Mika 11.7, Plt Count 139 L, MPV 9.2, Immature Gran % (Auto) 2.300 H, Neut % (Auto) 83.9 H, Lymph % (Auto) 6.3 L, [place] % (Auto) 7.3, Eos % (Auto) 0.0, Baso % (Auto) 0.2, Absolute Neuts (auto) 6.9, Absolute Lymphs (auto) 0.52 L, Nucleated RBC % 0 08/22/22 04:45: Triglycerides 167, Cholesterol 154, LDL Cholesterol 73, VLDL C holesterol 33, HDL Cholesterol 48, Lipase 778 H 08/22/22 04:45: Hemoglobin A1c 11.8 H 08/22/22 05:45: Urine Opiates Screen NEGATIVE, Urine Methadone Screen NEGATIVE, Ur Barbiturates Screen NEGATIVE, Ur Phencyclidine Scrn NEGATIVE, Ur Amphetamines Screen NEGATIVE, MDMA (Ecstasy) Screen NEGATIVE, U Benzodiazepines Scrn NEGATIVE, Urine Cocaine Screen NEGATIVE, U Cannabinoids Screen NEGATIVE, Ur Drug Screen Comment 08/22/22 05:45: Glucose 574 H* 08/22/22 06:33: Glucose 514 H* 08/22/22 07:56: POC Glucose 391 H 08/22/22 08:55: POC Glucose 341 H 08/22/22 09:40: Sodium 149 H, Potassium 4.0, Chloride 118 H, Carbon Dioxide 22.0, Anion Gap 9, BUN 48 H, Creatinine 3.90 H, Estim Creat Clear Calc 21.68, Est GFR (MDRD) Af Amer 21 L, Est GFR (MDRD) Non-Af 17 L, BUN/Creatinine Ratio 12.3, Glucose 325 H, Calcium 7.5 L 08/22/22 09:54: POC Glucose 312 H 08/22/22 11:00: POC Glucose 284 H 08/22/22 11:59: POC Glucose 249 H 08/22/22 13:10: POC Glucose 288 H 08/22/22 14:13: POC Glucose 279 H ABG Data ABG results: ABG 08/21/22 22:52 Specimen Type ART Sample Site R Radial pH 7.27 L Bicarbonate Actual 9.4 L Total CO2 10 Base Excess -18 L O2 Saturation 97 ABG pCO2 20.7 L ABG pO2 96 Adeel Test Positive Radiography Diagnostic Testing: Radiology Impression Chest X-Ray 08/21/22 13:50 IMPRESSION: No radiographic evidence of acute cardiopulmonary disease. Electronically Signed: Jon Maldonado MD at 14:47 EST , Chest X-Ray 08/22/22 10:16 IMPRESSION: No significant interval change with similar extent and distribution of trace bilateral opacities which could relate to atelectasis and/or multifocal pneumonia. Electronically Signed: Alex Ordoñez, at 11:05 EST , Physical Exam Narrative General: Confused, agitated, will not open eyes to voice HEENT: Atraumatic, PERRLA, EOMI, Normocephalic Oral: Dry Mucosa Neck: Supple, No JVD Lungs: Clear to auscultation, Normal air movement, No rhonchi, No wheeze, No rales Cardiovascular: Regular rate, Regular Rhythm, Normal S1, Normal S2, No murmurs Abdomen: Soft, Non Tender, Non-Distended, No Hepato-splenomegaly Extremities: No edema, Capillary Refill Less than 3 Seconds Skin: No rashes, No breakdown Musculoskeletal: No Tenderness to Palpation of Joints or Extremities Neurological: Moves all extremities Psych/Mental Status: agitated Assessment & Plan Assessment/Plan (1) Diabetic ketoacidosis: (2) Acute kidney failure: PLAN: Plan 1. Gastroenteritis with DKA and GONSALO/possible alcohol withdrawal versus metabolic encephalopathy ? According to family he is inconsistent with taking his insulin some months she is very consistent and proactive in others he is not ? He has lost 25 pounds according to the and his doctor thinks is due to having elevated ketones ? Continue with IV fluids and will adjust his insulin and try to get him off the drip if possible ? Renal function is improving ? We will continue with the DKA protocol in the ICU, his pressure is responsive to fluids so can hold off on placement of a central line for pressors ? Now hypernatremic, transition to LR, gap is closed x2 ? We will continue with Precedex, may benefit from outpatient follow-up with alcohol services DVT: SCDs Charges/Coding Visit Charges Inpatient E&M: 08043 Subs Hosp L2
[2022-08-22 15:22] LABS: M R Staph aureus DNA By PCR Negative (Negative); Probe Check PASS; Specimen Processing Control PASS
--- NOTE | 2022-08-22 17:41 | CASEMGMT ---
RADHA GRIGSBY Discharge Planning Assessment: Attempted face to face with pt this AM. Pt resting quietly with eyes closed. Noted pt with periods of agitation and confusion therefore pt was not disturbed. Call placed to pt's Pao who agrees to participate in assessment. RADHA GRIGSBY introduced self and role at [facility], Pt's voiced understanding. Care providers, pharmacy, and demographics verified. PCP: Jolly Cardenas Specialists: None, pt's is interested in a referral to Dr. Peacock [facility] Prescription Benefit: Yes Living Will/HPOA: No LNOK: Pt's Pao Living Arrangements: Pt lives in a two story home with a first floor set-up. Pt is independent with ADLs and had been working prior to admission. Transportation: Pt drives, spouse is able to assist with driving if needed DME: Has a [employer] glucometer which pt uses to monitor his sugars via his phone. Pt's states pt checked his sugars before each meal and sometimes at bedtime. States pt has been taking his insulin and adjusting doses under the direction of his PCP. SNF/HHC: None previously ETOH: per Dr. Ace, pt drinks heavily 4-5 times/week. Plan: Return home with the support of pt's . Will continue to monitor and assist with DC planning needs as identified. Johnathan Albrecht RN CM
[2022-08-22 17:45] LABS: Bedside Glucose 250 mg/dL (74-106)
[2022-08-22 17:55] LABS: Thyroid Stim Hormone (TSH) 1.52 uIU/mL (0.358-3.74)
[2022-08-22] MEDS: Lactated Ringers 1,000 ML 125 ML IV (17:55)
[2022-08-22] MEDS: LORazepam 2 MG/ML Syringe IV ×2 (19:03→23:25)
[2022-08-22 21:16] LABS: Allen Test Positive; Base Excess -9 mmol/L (-2 to +2); Bicarbonate 14.3 mmol/L (22-26); Blood Gas Specimen Type ART; PO2 101 mmHG (75-100); SITE R Brach; SO2 98 % (95-99); Total Carbon Dioxide 15 mmol/L; pCO2 19.3 mmHg (35-45); pH 7.48 (7.35-7.45)
[2022-08-22 22:25] LABS: Bedside Glucose 182 mg/dL (74-106)
--- NOTE | 2022-08-22 22:29 | PCM.HOSP.N ---
Hospitalist Note Patient with periods of apnea and hypotension on precedex, when stimulated improves but becomes agitated. Patient waking up following d/c precedex, moving onto his side, still agitated and not alert prior normal baseline. Again, reviewed EtOH intake with family and they note he drinks 2 beers potentially 4x/week and occasional more on weekends but this is not a regular activity. Given this input although different than originally stated to Dr. Ryan, will hold on phenobarbital IV transition from precedex, will continue IVFs, given low BP and already 10 L NS administration will start NEP, continued on IV zosyn, will have low dose ativan if absolutely necessary for sedation to be able to obtain CT head to assure no intracranial process as etiology for his agitation.
[2022-08-23] VITALS (36 sets, daily range): BP systolic 89–144; BP diastolic 63–110; PULSE 77–129; RESP 14–34; TEMP 36.9–38.4; O2SAT 96–100
[2022-08-23] MEDS: LORazepam 2 MG/ML Syringe 0.5 MG IV (00:27)
[2022-08-23] MEDS: Phenobarbital Sodium 130 MG/ML Vial 150 MG IV (01:16)
[2022-08-23] MEDS: Insulin Lispro 100 UNIT/ML INSULN.PEN SC ×4 (01:27→23:36)
[2022-08-23 01:50] LABS: Bedside Glucose 191 mg/dL (74-106)
[2022-08-23] MEDS: LORazepam 2 MG/ML Syringe IV (02:55)
--- NOTE | 2022-08-23 03:15 | RAD_ITS ---
We are attempting to reach an attending provider to discuss findings. An addendum with communication details will be sent when the communication is complete. STUDY: X-RAY CHEST REASON FOR EXAM: Male, 52 years old. Endotracheal tube placement. TECHNIQUE: Single AP portable view of the chest. COMPARISON: August 22, 2022. FINDINGS: Endotracheal tube tip 5 cm above the sai. Enteric tube tip below left hemidiaphragm and at least in the gastric body. No focal infiltrates or effusions. No pneumothorax. Normal size heart. Normal mediastinum and regina. Normal visualized pulmonary arteries. Normal visualized aortic arch and descending thoracic aorta. Normal visualized thoracic spine. Normal visualized ribs, clavicles, and shoulders. There is no demonstrated abnormality of the visualized soft tissue structures of the upper abdomen. RAD/Chest 1 View (Portable) IMPRESSION: Support tubes in their expected locations. No acute cardiopulmonary disease. Electronically Signed: George Bermudez MD at 5:01 EST Reading Location ID and State: [id number] / , Service support ,
[2022-08-23] MEDS: Etomidate 20 MG/10 ML Vial IV (03:20)
[2022-08-23] MEDS: Midazolam 2 MG/2 ML Syringe 4 MG IV (03:20)
[2022-08-23] MEDS: Succinylcholine Chloride 200 MG/10 ML SYRINGE 100 MG IV (03:21)
[2022-08-23] MEDS: Propofol 10MG/Ml 1,000 MG/100 ML Bottle 4.2 MG CONT INF ×2 (03:30→14:33)
[2022-08-23] MEDS: 0.9% Saline Lock 10 ML Syringe IV ×3 (03:33→06:07)
--- NOTE | 2022-08-23 03:34 | PCM.HOSP.N ---
Hospitalist Note Intubation Note: Patient with persistent severe agitation, despite attempted medication administration with increased work of breathing, accessory muscle usage, concern for worsening respiratory status. Medications administered: versed, etomidate, succ ETT size: 7.5 Patient intubated in standard fashion with visualization of the vocal cords and passage of the ETT. Positioning verified with auscultation. Post-intubation CXR requested. Patient maintained in the ED with propofol and fentanyl initiated. CT head with preliminary evaluation with no acute findings, no obvious acute bleed but awaiting final read. Procedures Hospitalists Procedures: 24854 Insert Emergency Airway
--- NOTE | 2022-08-23 03:39 | NURSING ---
Dr. King at bedside for RSI. Verbal orders for intubation meds and sedation given. 0320: 20 mg etomidate IV x1 given, followed by 4 mg versed IV x1. 0321: 100 mg succinylcholine IV x1 given 0322: Intubated by Dr. King - 7.5 tube, 23 @ teeth. OG placed.
--- NOTE | 2022-08-23 04:05 | PCM.HOSP.N ---
Hospitalist Note Updated about current status and his CT Head results. Noted that secondary to the severity of his agitation, increased work-up breathing he was successfully intubated which had been discussed prior upon his initial evaluation. Patient spouse expressed initially disbelieve and transiently mentioned that he would never wants to be intubated and was very difficult to be extubated; however, upon further discussions she mentions he has never been intubated and again confirmed that he is full code which was discussed upon his admission. She does confirm his full code status. Discussed that intubation was temporary and for his benefit.
--- NOTE | 2022-08-23 04:15 | NURSING ---
Began shift with family at bedside, pt agitated. PRNs attempted but were not effective. Multiple conversations had with family regarding plan of care and visitation policy. MD notified of persistent agitation and orders were changed. Soft wrist restraints applied to bilateral wrists due to agitation/confusion and pulling at lines. Attempted to take pt to CT at around 0100 but agitation increased and pt was returned to room. MD notified and new orders were placed. Second attempt at CT @ 0230 was performed. Pt became severely agitated and did not respond to PRNs. More than 6 staff required to restrain patient. Facial redness, scleral edema, and gasping breath was of concern during the episode. SPO2 unable to reliably assess due to thrashing movements. MD advised at that time to intubate upon return to unit to protect airway. Intubated at 0324. Family was notified of status change by MD.
[2022-08-23 04:36] LABS: Allen Test Positive; Base Excess -5 mmol/L (-2 to +2); Bicarbonate 20.3 mmol/L (22-26); Blood Gas Specimen Type ART; FI02 30; Mode AC; O2 Delivery Device Adult Vent; PEEP 5; PO2 116 mmHG (75-100); RR 14; SITE L Radial; SO2 98 % (95-99); Total Carbon Dioxide 21 mmol/L; Vt 500; pCO2 36.9 mmHg (35-45); pH 7.35 (7.35-7.45)
[2022-08-23 05:43] LABS: Anion Gap 7 (5-15); BUN 45 mg/dL (7-18); BUN/Creat Ratio 11.2 RATIO (10-20); Calcium,Total 7.8 mg/dL (8.5-10.1); Chloride 127 mmol/L (98-107); EST Glomerular Filtration Rate 17 mL/min (>60); Est Glom Filt Rate - Afr Amer 20 mL/min (>60); Estimated Creatinine Clearance 21.14 ml/min; Glucose 132 mg/dL (74-106); Potassium 3.4 mmol/L (3.5-5.1); Sodium Level 156 mmol/L (136-145)
[2022-08-23 07:25] LABS: Absolute Neutrophil Count 5.6 X10^3/uL (2.0-7.7); Basophil# 0.01 X10^3/uL; Basophil% 0.2 % (0-1); Lymphocyte % 10.5 % (19-41); Mean Corpuscular Volume 85.2 fL (80-94); Mean Platelet Vol. 8.8 fl (6.2-12.0); Monocyte# 0.36 X10^3/uL; Monocyte% 5.4 % (0-10); NRBC Flagged by Analyzer 0 % (0-5); Neutrophil # 5.55 X10^3/uL (2.7-7.7); Neutrophil % 83.3 % (47-70); POSITIVE COUNT YES; Platelet Count 114 K/mm3 (150-450); RBC Distribution Width CV 12.8 % (11.6-14.6); RBC Distribution Width SD 39.1 fl (35.1-43.9); Red Blood Count 3.99 M/mm3 (4.6-6.2); White Blood Count 6.7 K/mm3 (4.4-11.0)
[2022-08-23 07:26] LABS: Mean Corpuscular Hgb 31.6 pg (27.0-32.0)
[2022-08-23 07:27] LABS: Mean Corp Hgb Conc 36.9 g/dL (32-36)
[2022-08-23 07:35] LABS: CPK Total, Creatine Kinase 1844 U/L (39-308); Triglycerides 168 mg/dL
--- NOTE | 2022-08-23 07:39 | PN.CC_ITS ---
Assessment & Plan Assessment/Plan (1) Diabetic ketoacidosis: PLAN: Plan RECOMMENDATIONS: 1. Continue assist-control mode mechanical ventilation. Wean FiO2 for saturations greater than 90%. 2. Start D5W on account of hypernatremia. 3. Obtain nephrology consultation. 4. Obtain sputum and sent for culture. 5. Check liver function profile and pneumonia. 6. Okay to start tube feeds today. 7. Continue basal and sliding scale insulin regimen. 8. Continue empiric antimicrobials, pending infectious work-up. 9. Continue appropriate ICU prophylaxis. IMPRESSIONS: 1. Acute respiratory failure The patient was intubated as a consequence of profound agitation and associated increased work of breathing, with concern for impending respiratory failure. He is doing well from a respiratory perspective on minimal FiO2. Plan to continue the aforementioned, with plans to begin spontaneous awakening and breathing trials beginning tomorrow. 2. Diabetic ketoacidosis Resolved. Likely secondary to outpatient noncompliance with prescribed medical therapy. The patient presented with significant DKA with profound anion gap metabolic acidosis. He has responded appropriately to aggressive fluid resuscit ation, electrolyte repletion and continuous insulin infusion with resolution of his DKA. The patient has been transition to basal and sliding scale insulin coverage, which will be continued without change. I strongly advised that the patient follow-up with an dining service supervisor after discharge. 3. Encephalopathy Most likely metabolic in etiology. Anticipate slow recovery with stabilization of his underlying metabolic derangements. Continue supportive measures as noted above. 4. Acute kidney injury Most likely prerenal in etiology in the setting of significant intravascular volume depletion due to diabetic ketoacidosis. The patient is being aggressively fluid resuscitated. Creatinine is slowly improving with volume expansion. Continue to monitor urine output. No current indication for renal replacement therapy. 5. Hypernatremia Likely secondary to utilization of normal saline during fluid resuscitation efforts. In light of the aforementioned, the patient has been started on D5W. We will need to monitor his blood glucose levels closely and make adjustments to his insulin regimen as well. TIME: 34 minutes of critical care time, independent of procedures, was spent add ressing the patient's acute respiratory failure, diabetic ketoacidosis, encephalopathy, acute kidney injury, hypernatremia, review of all data and collaboration with the care team. Subjective Subjective The patient was seen and examined at the bedside this morning. Events from the last 24 hours have been reviewed. The patient is currently afebrile, hemodynamically stable and maintaining appropriate oxygen saturations on assist control mode of mechanical ventilation with an FiO2 requirement of 30%. Due to profound agitation yesterday, which was refractory to the use of Haldol and Geodon, the patient was initiated on Precedex. This initially appeared to provide adequate control. However, last night, the patient was noted to be hypotensive and apneic. Therefore, the medication was discontinued. As a consequence of this, the patient again became significantly agitated, with increased work of breathing, accessory muscle use and concern for impending respiratory failure. The patient was then intubated. CT head was then obtained which showed no intracranial abnormality. However, the study was limited by patient motion artifact. The patient is thrombocytopenic with a platelet count of 114,000. ABG from this morning demonstrated a pH of 7.35 with a PCO2 of 37 and PO2 of 116. Sodium is elevated at 156 with a potassium of 3.4, chloride of 127, BUN of 45 and creatinine of 4.0. Glucose is stable at 132. Objective Data Objective Data The patient's most recent lab work, culture data and imaging studies have all been personally reviewed. Blood, urine and sputum cultures are pending. Vital Signs: Vital Signs Temp Pulse Resp BP Pulse Ox O2 Del Method O2 Flow Rate 98.5 F 81 14 90/63 98 Mechanical Ventilator 2 08/23/22 04:00 08/23/22 07:00 08/23/22 07:00 08/23/22 07:00 08/23/22 07:00 08/23/22 07:00 08/21/22 12:15 FiO2 30 08/23/22 07:00 Oxygen Flow Rate (L/min) 2 Oxygen Delivery Method Mechanical Ventilator Weight: 156 lb 11.979 oz Body Mass Index (BMI) 22.9 Intake & Output: Intake and Output for Last 24 Hours 08/21/22 08/22/22 08/23/22 23:59 23:59 23:59 Intake Total 5938.48 / 5938.48 7272.58 / 7274.93 1252.78 / 1252.78 Output Total 450 / 1450 3100 / 3175 75 / 75 Balance 5488.48 / 4488.48 4172.58 / 4099.93 1177.78 / 1177.78 Lab / Micro Data Attestation: I reviewed the patient's lab results. Result Diagrams: 08/23/22 04:51 08/23/22 04:51 Labs: Laboratory Results - last 24 hr 08/21/22 12:19: Diff Path Review Reviewed 08/22/22 04:45: Hemoglobin A1c 11.8 H 08/22/22 06:33: TSH 1.52 08/22/22 07:56: POC Glucose 391 H 08/22/22 08:55: POC Glucose 341 H 08/22/22 09:40: Sodium 149 H, Potassium 4.0, Chloride 118 H, Carbon Dioxide 22.0, Anion Gap 9, BUN 48 H, Creatinine 3.90 H, Estim Creat Clear Calc 21.68, Est GFR (MDRD) Af Amer 21 L, Est GFR (MDRD) Non-Af 17 L, BUN/Creatinine Ratio 12.3, Glucose 325 H, Calcium 7.5 L 08/22/22 09:54: POC Glucose 312 H 08/22/22 10:35: MRSA (PCR) Negative 08/22/22 11:00: POC Glucose 284 H 08/22/22 11:59: POC Glucose 249 H 08/22/22 13:10: POC Glucose 288 H 08/22/22 14:13: POC Glucose 279 H 08/22/22 17:23: POC Glucose 250 H 08/22/22 21:55: POC Glucose 182 H 08/23/22 01:26: POC Glucose 191 H 08/23/22 04:51: WBC 6.7, RBC 3.99 L, Hgb 12.0 L, Hct 34.0 L, MCV 85.2, MCH 31.6, MCHC 36.9 H, RDW Std Deviation 39.1, RDW Coeff of Mika 12.8, Plt Count 114 L, MPV 8.8, Immature Gran % (Auto) 0.600, Neut % (Auto) 83.3 H, Lymph % (Auto) 10.5 L, [place] % (Auto) 5.4, Eos % (Auto) 0.0, Baso % (Auto) 0.2, Absolute Neuts (auto) 5.6, Absolute Lymphs (auto) 0.70 L, Nucleated RBC % 0 08/23/22 04:51: Sodium 156 H, Potassium 3.4 L, Chloride 127 H*, Carbon Dioxide 22.0, Anion Gap 7, BUN 45 H, Creatinine 4.00 H, Estim Creat Clear Calc 21.14, Est GFR (MDRD) Af Amer 20 L, Est GFR (MDRD) Non-Af 17 L, BUN/Creatinine Ratio 11.2, Glucose 132 H, Calcium 7.8 L 08/23/22 04:51: Total Creatine Kinase 1844 H, Triglycerides 168 ABG Data ABG results: ABG 08/22/22 08/23/22 21:08 04:28 Specimen Type ART ART Sample Site R Brach L Radial pH 7.48 H 7.35 Bicarbonate Actual 14.3 L 20.3 L Total CO2 15 21 Base Excess -9 L -5 L O2 Saturation 98 98 O2 % 30 ABG pCO2 19.3 L 36.9 ABG pO2 101 H 116 H Adeel Test Positive Positive Respiration Rate 14 O2 Delivery Device Adult Vent Vent Mode AC Tidal Volume 500 POC PEEP 5 Radiography Diagnostic Testing: Radiology Impression Chest X-Ray 08/22/22 10:16 IMPRESSION: No significant interval change with similar extent and distribution of trace bilateral opacities which could relate to atelectasis and/or multifocal pneumonia. Electronically Signed: Alex Tiago, at 11:05 EST , Chest X-Ray 08/23/22 03:15 IMPRESSION: Support tubes in their expected locations. No acute cardiopulmonary disease. Electronically Signed: George Bermudez MD at 5:01 EST Reading Location ID and State: [place] / , Service support , ADDENDUM: 08/23/22 0530 IMPRESSION: Support tubes in their expected locations. No acute cardiopulmonary disease. N.B. : The above Results were Read Back by George Bermudez MD to Shila King MD, and understanding confirmed on 08/23/2022 05:23:32 (ET). Electronically Signed: George Bermudez MD at 5:01 EST Reading Location ID and State: [place] H[place] MD , Service support , Brain CT 08/23/22 22:04 IMPRESSION: No acute intracranial abnormality on study limited by excessive patient motion. Electronically Signed: George Bermudez MD at 3:51 EST Reading Location ID and State: [id number] / , Service support , Physical Exam Const no apparent distress General Appearance: intubated and patient mechanically ventilated HEENT normocephalic and head/scalp atraumatic Mouth: endotracheal tube in place and OG tube in place Eyes PERRL and EOMs intact bilaterally Neck supple General: trachea midline Chest inspection of chest normal Resp normal respiratory effort Auscultation: Negative for rales, rhonchi or wheezes Cardio regular rate and regular rhythm GI normal to inspection, nondistended, normoactive bowel sounds Extremity no clubbing, cyanosis or edema Skin no rashes or lesions noted Neuro Sensorium / Orientation: sedated on vent Charges/Coding Procedures Hospitalists Procedures: 11808 Critial Care 1st Hr
--- NOTE | 2022-08-23 07:45 | PN.HOSP_ITS ---
Subjective Subjective Required intubation overnight, presently intubated and sedated Objective Data Objective Data Vital Signs: Vital Signs Temp Pulse Resp BP Pulse Ox O2 Del Method O2 Flow Rate 98.5 F 81 14 90/63 98 Mechanical Ventilator 2 08/23/22 04:00 08/23/22 07:00 08/23/22 07:00 08/23/22 07:00 08/23/22 07:00 08/23/22 07:00 08/21/22 12:15 FiO2 30 08/23/22 07:00 Oxygen Flow Rate (L/min) 2 Oxygen Delivery Method Mechanical Ventilator Weight: 71.1 kg Body Mass Index (BMI) 22.9 Intake & Output: Intake and Output for Last 24 Hours 08/21/22 08/22/22 08/23/22 23:59 23:59 23:59 Intake Total 5938.48 / 5938.48 7272.58 / 7274.93 1252.78 / 1252.78 Output Total 450 / 1450 3100 / 3175 75 / 75 Balance 5488.48 / 4488.48 4172.58 / 4099.93 1177.78 / 1177.78 Lab / Micro Data Result Diagrams: 08/23/22 04:51 08/23/22 04:51 Labs: Laboratory Results - last 24 hr 08/21/22 12:19: Diff Path Review Reviewed 08/22/22 04:45: Hemoglobin A1c 11.8 H 08/22/22 06:33: TSH 1.52 08/22/22 07:56: POC Glucose 391 H 08/22/22 08:55: POC Glucose 341 H 08/22/22 09:40: Sodium 149 H, Potassium 4.0, Chloride 118 H, Carbon Dioxide 22.0, Anion Gap 9, BUN 48 H, Creatinine 3.90 H, Estim Creat Clear Calc 21.68, Est GFR (MDRD) Af Amer 21 L, Est GFR (MDRD) Non-Af 17 L, BUN/Creatinine Ratio 12.3, Glucose 325 H, Calcium 7.5 L 08/22/22 09:54: POC Glucose 312 H 08/22/22 10:35: MRSA (PCR) Negative 08/22/22 11:00: POC Glucose 284 H 08/22/22 11:59: POC Glucose 249 H 08/22/22 13:10: POC Glucose 288 H 08/22/22 14:13: POC Glucose 279 H 08/22/22 17:23: POC Glucose 250 H 08/22/22 21:55: POC Glucose 182 H 08/23/22 01:26: POC Glucose 191 H 08/23/22 04:51: WBC 6.7, RBC 3.99 L, Hgb 12.0 L, Hct 34.0 L, MCV 85.2, MCH 31.6, MCHC 36.9 H, RDW Std Deviation 39.1, RDW Coeff of Mika 12.8, Plt Count 114 L, MPV 8.8, Immature Gran % (Auto) 0.600, Neut % (Auto) 83.3 H, Lymph % (Auto) 10.5 L, [place] % (Auto) 5.4, Eos % (Auto) 0.0, Baso % (Auto) 0.2, Absolute Neuts (auto) 5.6, Absolute Lymphs (auto) 0.70 L, Nucleated RBC % 0 08/23/22 04:51: Sodium 156 H, Potassium 3.4 L, Chloride 127 H*, Carbon Dioxide 22.0, Anion Gap 7, BUN 45 H, Creatinine 4.00 H, Estim Creat Clear Calc 21.14, Est GFR (MDRD) Af Amer 20 L, Est GFR (MDRD) Non-Af 17 L, BUN/Creatinine Ratio 11.2, Glucose 132 H, Calcium 7.8 L 08/23/22 04:51: Total Creatine Kinase 1844 H, Triglycerides 168 ABG Data ABG results: ABG 08/22/22 08/23/22 21:08 04:28 Specimen Type ART ART Sample Site R Brach L Radial pH 7.48 H 7.35 Bicarbonate Actual 14.3 L 20.3 L Total CO2 15 21 Base Excess -9 L -5 L O2 Saturation 98 98 O2 % 30 ABG pCO2 19.3 L 36.9 ABG pO2 101 H 116 H Adeel Test Positive Positive Respiration Rate 14 O2 Delivery Device Adult Vent Vent Mode AC Tidal Volume 500 POC PEEP 5 Radiography Diagnostic Testing: Radiology Impression Chest X-Ray 08/22/22 10:16 IMPRESSION: No significant interval change with similar extent and distribution of trace bilateral opacities which could relate to atelectasis and/or multifocal pneumonia. Electronically Signed: Alex Ordoñez, at 11:05 EST , Chest X-Ray 08/23/22 03:15 IMPRESSION: Support tubes in their expected locations. No acute cardiopulmonary disease. Electronically Signed: George Bermudez MD at 5:01 EST Reading Location ID and State: [place] / , Service support , ADDENDUM: 08/23/22 0530 IMPRESSION: Support tubes in their expected locations. No acute cardiopulmonary disease. N.B. : The above Results were Read Back by George Bermudez MD to Shila King MD, and understanding confirmed on 08/23/2022 05:23:32 (ET). Electronically Signed: George Bermudez MD at 5:01 EST Reading Location ID and State: [place] / , Service support , Brain CT 08/23/22 22:04 IMPRESSION: No acute intracranial abnormality on study limited by excessive patient motion. Electronically Signed: George Bermudez MD at 3:51 EST Reading Location ID and State: [place] / , Service support , Physical Exam Const Constitutional Narrative: Sedated HEENT normocephalic and head/scalp atraumatic Eyes Eyes Narrative: Was not opening eyes spontaneously to voice Neck Neck Narrative: ET tube in place Resp Resp Narrative: Mechanically ventilated Cardio regular rate and regular rhythm GI soft to palpation Extremity Extremity Narrative: No edema appreciated Neuro Neuro Narrative: Intubated and sedated Psych Psych Narrative: Unable to cooperate secondary to sedation Assessment & Plan Assessment/Plan (1) Diabetic ketoacidosis: (2) Acute kidney failure: PLAN: Plan #Hypotension Attempted to start Precedex overnight but he would become significantly agitated and was not alert Given low BP despite adequate fluid resuscitation he was started on Zosyn. WBC count normalized though could have been reactive, unclear Remains in the ICU Blood culture and urine culture pending Chest x-ray unremarkable #Hypernatremia Dextrose started by ICU team, will need to monitor glucose closely and can restart insulin drip if needed #Encephalopathy Considered likely metabolic in etiology Had been significantly agitated and was requiring medication for agitation Over night required intubation and is now intubated and sedated Third been concerned that may be this was in part due to alcohol withdrawal but family reported that he drinks 4-5 times per week TSH was normal Started on Precedex yesterday due to being refractory to Haldol and Geodon however overnight due to hypotension the Precedex was attempted to be weaned and he became very agitated Eventually had respiratory distress and was intubated CT head unremarkable Now intubated and sedated currently on propofol and fentanyl #Diabetic ketoacidosis in the setting of type 1 diabetes Had been inconsistent taking his insulin prior to admission Had high anion gap metabolic acidosis on admission Was given aggressive fluid resuscitation, electrolyte repletion, and was on an insulin drip Anion gap has been closed and he was transitioned to basal insulin with sliding scale coverage #GONSALO Likely prerenal Has received volume resuscitation Monitor output Initially improved and then slightly worsened today Of note CK that was checked was in fact elevated which may certainly be a factor #DVT ppx: Apply SCDs Christina Manuel MD Charges/Coding Visit Charges Inpatient E&M: 73188 Subs Hosp L2
--- NOTE | 2022-08-23 07:46 | NURSING ---
0320: Etomidate 20 given 0320: Versed 4mg given 0321: 100mg Succinylcholine given 0324: Pt intubated, positive color change, bilateral lung sounds
[2022-08-23 10:08] LABS: AST(SGOT) 329 U/L (15-37); Alanine Aminotransfer ALT/SGPT 124 U/L (16-61); Albumin, Serum 2.8 g/dL (3.2-5.0); Alkaline Phosphatase 153 U/L (45-117); Globulin 2.3 g/dL (2.2-4.2); Protein, Total 5.1 g/dL (6.4-8.2)
[2022-08-23] MEDS: Chlorhexidine 15 ML PO ×2 (10:37→10:43)
--- NOTE | 2022-08-23 10:56 | US_ITS ---
STUDY: RENAL ULTRASOUND - COMPLETE REASON FOR EXAM: Male, 52 years old. Elevated BUN/creatinine TECHNIQUE: Ultrasound evaluation of the kidneys was performed with real-time and static long-scale imaging. COMPARISON: None. FINDINGS: RIGHT KIDNEY: Normal location of the right kidney, which is normal in size. The right kidney measures 12.6 x 5.7 x 4.5 cm. There is a normal cortex of the right kidney. The renal cortex measures 1.4 cm. There is no right renal mass or cyst. There are no right renal calculi. There is no right hydronephrosis. DISTAL RIGHT URETER: There is non-visualization of the distal right ureter. There is no demonstrated right ureterovesical junction calculus. There is a visualized right ureteral jet. LEFT KIDNEY: Normal location of the left kidney, which is normal in size. The left kidney measures 12.5 x 4.8 x 4.8 cm. There is a normal cortex of the left kidney. The renal cortex measures 1.3 cm. There is no left renal mass or cyst. There are no left renal calculi. There is no left hydronephrosis. DISTAL LEFT URETER: There is non-visualization of the distal left ureter. There is no demonstrated left ureterovesical junction calculus. There is a visualized left ureteral jet. AORTA: There is no elongation or tortuosity of the abdominal aorta. I.V.C.: The IVC is patent. BLADDER: The bladder is collapsed around a Hogue catheter, wall is thickened and heterogeneous Incidental note made of an enlarged spleen US/Kidney and Bladder IMPRESSION: No obstructive uropathy or suspicious solid renal lesion Enlarged spleen Bladder collapsed around a Hogue catheter. Bladder wall is thickened and heterogeneous Electronically Signed: Jon Maldonado MD at 13:22 EST ,
--- NOTE | 2022-08-23 10:56 | PCM.CONS.R ---
Documented by User: SIMON Salazar 08/23/22 11:14 Assessment & Plan Assessment/Plan (1) Diabetic ketoacidosis: (2) Acute kidney failure: (3) Hypernatremia: (4) Acute respiratory failure: PLAN: Plan For renal insufficiency, it is unknown if this is acute kidney injury versus CKD. According to patient's , patient had lab work drawn at least 3 months ago and routinely by PCP. We will attempt to obtain labs to determine baseline kidney function. On presentation to the emergency room, creatinine was 5.06 mg/dL on August 21 and today SCr improved to 4.00 mg/dL. He is nonoliguric. There is no acute indication for CONFERENCE COORDINATOR at this time as potassium and acid-base acceptable and patient appears near euvolemic on exam. Chest x-ray reviewed, no acute cardiopulmonary disease, no pulmonary edema. GONSAOL likely prerenal which may have progressed to ATN from DKA, Hypotension. Patient's UA positive glucose 1000, protein 100, occult blood 150, negative leukocyte and no RBCs. We will obtain renal ultrasound to rule out obstructive process contributing to GONSALO however patient does have indwelling Hogue with good urine output at the present time. Patient developed agitation yesterday with concern for his respiratory status and was subsequently intubated. His CT did not show any acute intracranial abnormality. Continue on IVF as ordered. BPs are improving, not on pressor support at this time. According to patient's , no new medications, patient was not taking any diuretics, GRADY or ARB before hospitalization. Further orders forthcoming as hospitalization evolves. Thank you for allowing us participate in the care of Mr. Paris. HPI Consult Data Date of Consult: 08/23/22 HPI Narrative HPI Narrative: DANIAL PARIS, is a 52 M with past history significant for diabetes mellitus type 1 who was brought to the emergency room for evaluation of altered mental status. We were consulted for renal insufficiency. Patient is intubated, his and daughter at bedside therefore information is gathered from chart and patient's family. Apparently patient had been feeling unwell for some time with nausea and vomiting a few days before presenting to the emergency room. Also been experiencing nasal congestion. He had not been taking his insulin. No new medications. No diarrhea per . In the emergency room serum glucose 1943, creatinine 5, patient was admitted for gastroenteritis with DKA and GONSALO. According to patient's there is no known history of chronic kidney disease. Patient does take ibuprofen as needed and possibly had a dose or 2 before presenting to the emergency room. [facility] Medical History (Updated 08/23/22 @ 11:02 by SIMON Salazar) Santos's palsy Diabetes Home Medications insulin glargine U-300 conc 300 unit/mL (1.5 mL) subcutaneous pen (Toujeo SoloStar U-300 Insulin) 50 unit subcut DAILY 08/21/22 [History Last Taken Unknown] insulin lispro 100 unit/mL subcutaneous pen 15 unit subcut BID DIABETES 08/21/22 [History Last Taken Unknown] Allergy/AdvReac Type Severity Reaction Status Date / Time No Known Allergies Allergy Verified 08/21/22 12:24 Family History Other Diabetes Heart disease Surgical History Status post hernia repair Social History Smoking Status: Former smoker ROS ROS Narrative Unable to obtain Physical Exam Narrative On mechanical ventilation. Appears comfortable, no apparent distress S1, S2, RRR Lung sounds clear anteriorly no wheezes, rhonchi or rales noted Abdomen is soft, positive bowel sounds No edema Indwelling Hogue catheter with clear urine in bag Lab / Micro Data Result Diagrams: 08/23/22 04:51 08/23/22 04:51 Labs: Laboratory Results - last 24 hr 08/21/22 12:19: Diff Path Review Reviewed 08/22/22 06:33: TSH 1.52 08/22/22 10:35: MRSA (PCR) Negative 08/22/22 11:00: POC Glucose 284 H 08/22/22 11:59: POC Glucose 249 H 08/22/22 13:10: POC Glucose 288 H 08/22/22 14:13: POC Glucose 279 H 08/22/22 17:23: POC Glucose 250 H 08/22/22 21:55: POC Glucose 182 H 08/23/22 01:26: POC Glucose 191 H 08/23/22 04:51: WBC 6.7, RBC 3.99 L, Hgb 12.0 L, Hct 34.0 L, MCV 85.2, MCH 31.6, MCHC 36.9 H, RDW Std Deviation 39.1, RDW Coeff of Mika 12.8, Plt Count 114 L, MPV 8.8, Immature Gran % (Auto) 0.600, Neut % (Auto) 83.3 H, Lymph % (Auto) 10.5 L, [place] % (Auto) 5.4, Eos % (Auto) 0.0, Baso % (Auto) 0.2, Absolute Neuts (auto) 5.6, Absolute Lymphs (auto) 0.70 L, Nucleated RBC % 0 08/23/22 04:51: Sodium 156 H, Potassium 3.4 L, Chloride 127 H*, Carbon Dioxide 22.0, Anion Gap 7, BUN 45 H, Creatinine 4.00 H, Estim Creat Clear Calc 21.14, Est GFR (MDRD) Af Amer 20 L, Est GFR (MDRD) Non-Af 17 L, BUN/Creatinine Ratio 11.2, Glucose 132 H, Calcium 7.8 L 08/23/22 04:51: Total Creatine Kinase 1844 H, Triglycerides 168 08/23/22 04:51: Total Bilirubin 0.60, Direct Bilirubin 0.20, AST 329 H, ALT 124 H, Alkaline Phosphatase 153 H, Total Protein 5.1 L, Albumin 2.8 L, Globulin 2.3 08/23/22 08:25: Ammonia 56.0 H ABG Data ABG results: ABG 08/22/22 08/23/22 21:08 04:28 Specimen Type ART ART Sample Site R Brach L Radial pH 7.48 H 7.35 Bicarbonate Actual 14.3 L 20.3 L Total CO2 15 21 Base Excess -9 L -5 L O2 Saturation 98 98 O2 % 30 ABG pCO2 19.3 L 36.9 ABG pO2 101 H 116 H Adeel Test Positive Positive Respiration Rate 14 O2 Delivery Device Adult Vent Vent Mode AC Tidal Volume 500 POC PEEP 5 Radiology Impression Chest X-Ray 08/22/22 10:16 IMPRESSION: No significant interval change with similar extent and distribution of trace bilateral opacities which could relate to atelectasis and/or multifocal pneumonia. Electronically Signed: Alex Ordoñez, at 11:05 EST , Chest X-Ray 08/23/22 03:15 IMPRESSION: Support tubes in their expected locations. No acute cardiopulmonary disease. Electronically Signed: George Bermudez MD at 5:01 EST Reading Location ID and State: [place] / , Service support , ADDENDUM: 08/23/22 0530 IMPRESSION: Support tubes in their expected locations. No acute cardiopulmonary disease. N.B. : The above Results were Read Back by George Bermudez MD to Shila King MD, and understanding confirmed on 08/23/2022 05:23:32 (ET). Electronically Signed: George Bermudez MD at 5:01 EST Reading Location ID and State: [place] / , Service support , Brain CT 08/23/22 22:04 IMPRESSION: No acute intracranial abnormality on study limited by excessive patient motion. Electronically Signed: George Bermudez MD at 3:51 EST Reading Location ID and State: [place] H[place] MD , Service support , Documented by User: Dr. Carlito Hall MD 08/23/22 11:22 Assessment & Plan Assessment/Plan (1) Diabetic ketoacidosis: (2) Acute kidney failure: (3) Hypernatremia: (4) Acute respiratory failure: PLAN: Plan For renal insufficiency, it is unknown if this is acute kidney injury versus CKD. According to patient's , patient had lab work drawn at least 3 months ago and routinely by PCP. We will attempt to obtain labs to determine baseline kidney function. On presentation to the emergency room, creatinine was 5.06 mg/dL on August 21 and today SCr improved to 4.00 mg/dL. He is nonoliguric. There is no acute indication for CONFERENCE COORDINATOR at this time as potassium and acid-base acceptable and patient appears near euvolemic on exam. Chest x-ray reviewed, no acute cardiopulmonary disease, no pulmonary edema. GONSALO likely prerenal which may have progressed to ATN from DKA, Hypotension. Patient's UA positive glucose 1000, protein 100, occult blood 150, negative leukocyte and no RBCs. We will obtain renal ultrasound to rule out obstructive process contributing to GONSALO however patient does have indwelling Hogue with good urine output at the present time. Patient developed agitation yesterday with concern for his respiratory status and was subsequently intubated. His CT did not show any acute intracranial abnormality. Continue on IVF as ordered. BPs are improving, not on pressor support at this time. According to patient's , no new medications, patient was not taking any diuretics, GRADY or ARB before hospitalization. Further orders forthcoming as hospitalization evolves. Thank you for allowing us participate in the care of Mr. Paris. Patient seen and examined, agree with note as outlined by LAND SURVEYOR MANAGER above. -Unclear baseline renal function however has been a diabetic for about 12 years. Blood sugars been ranging around 300s at home. Does not follow endocrinology, per his PCP is managing his blood sugar -Presented to the hospital with blood sugar of 1900s. Currently intubated status post volume expansion -Serum creatinine on presentation is a 5.06 mg/dL and improved to 4.0 mg/dL today -Currently nonoliguric no immediate need for renal placement therapy -Continue supportive care -Check urine protein creatinine ratio Thank you please call [phone] with any concerns HPI Consult Data Date of Consult: 08/23/22 [facility] Medical History (Updated 08/23/22 @ 11:02 by SIMON Salazar) Santos's palsy Diabetes Home Medications insulin glargine U-300 conc 300 unit/mL (1.5 mL) subcutaneous pen (Toujeo SoloStar U-300 Insulin) 50 unit subcut DAILY 08/21/22 [History Last Taken Unknown] insulin lispro 100 unit/mL subcutaneous pen 15 unit subcut BID DIABETES 08/21/22 [History Last Taken Unknown] Allergy/AdvReac Type Severity Reaction Status Date / Time No Known Allergies Allergy Verified 08/21/22 12:24 Family History Other Diabetes Heart disease Surgical History Status post hernia repair Social History Smoking Status: Former smoker Lab / Micro Data Result Diagrams: 08/23/22 04:51 08/23/22 04:51
[2022-08-23 11:17] LABS: GGTP 174 U/L (15-85); Lipase 380 U/L (73-393)
[2022-08-23] MEDS: Vital AF 1.2 Cal Liquid 1,000 ML 20 ML GT (11:35)
--- NOTE | 2022-08-23 11:51 | US_ITS ---
STUDY: ABDOMINAL ULTRASOUND - RIGHT UPPER QUADRANT REASON FOR VISIT: Male, 52 years old Transaminitis, elevated GGT TECHNIQUE: Ultrasound evaluation of the right upper quadrant was performed with real-time and static reyes-scale imaging. TECHNICAL QUALITY: Limited. Examination limited due to the patient?s condition. COMPARISON: None. FINDINGS: Liver: The liver measures 20.1 cm. There is normal echogenicity of the liver. The bile ducts are within normal limits. There is hepatic color flow. The direction of portal flow is hepatopetal. There is no demonstrated mass lesion. Gallbladder: Normal distended gallbladder. The gallbladder wall measures 4.1 mm. There is a negative sonographic Serna''s sign. There is pericholecystic fluid. There are no gallstones. Common Bile Duct (C.B.D.): The common bile duct measures 4.3 mm. Pancreas: Normal size of the head, body and tail of the pancreas. There is normal echogenicity of the pancreas. There is no demonstrated pancreatic mass or cyst. Right Kidney: Normal size of the right kidney. The right kidney measures 12.6 x 5.7 x 4.0 cm. Normal renal cortex. The right cortex measures 1.4 cm. There is no demonstrated renal mass or cyst. There is no right hydronephrosis. Diffuse ascites noted US/Liver IMPRESSION: Hepatomegaly, no discrete lesion Gallbladder wall thickening with pericholecystic fluid. No gallstones, automobile upholsterer apprentice notes a negative Serna sign. If there is strong clinical suspicion of acalculous cholecystitis, consider further evaluation with HIDA scan Diffuse ascites Electronically Signed: Jon Maldonado MD at 13:26 EST ,
[2022-08-23] MEDS: Insulin Glargine-YFGN 100 UNIT/ML Pen 25 UNIT SC (11:52)
--- NOTE | 2022-08-23 12:22 | CHAPLAIN ---
Type of Pastoral Visit ___ Initial Visit _x__ Follow-up Visit ___ On-call Visit ___ General Patient Visit ___ Spiritual Assessment ___ Family Conference ___ Bereavement ___ Rapid Response ___ Code Blue ___ Other (describe below) Pastoral Care Referral From ___ Patient ___ Family ___ Nurse ___ Physician ___ It Security Consultant ___ Chaperone _x__ Other (describe below) Sacrament/Intervention _x__ Active listening ___ Anointing ___ Yazdanism ___ Bereavement ___ Communion ___ Aleena exploration ___ ___ Life review ___ Prayer ___ Reconciliation ___ Sacrament of Sick ___ Supportive presence ___ Wedding ___ Other (describe below) Pastoral Comments supportive presence and offer of care to spouse and daughter in the patient's room; pt is now intubated; spouse says just pray and I hope we have a good outcome after all this; daughter states that their senior technical writer was in to pray with them; no other needs or requests at this time
[2022-08-23 12:30] LABS: Protein, Urine (Random) 59.9 mg/dL (<11.9); Protein:Creat Ratio 1253 mg/g CRE (0-200)
[2022-08-23 12:35] LABS: Bedside Glucose 216 mg/dL (74-106)
--- NOTE | 2022-08-23 21:30 | NURSING ---
Family (daughter and ) were at bedside from start of shift until 2100. Both family members were expressing their distrust of care and questioning this RN about decisions being made for the pt. This RN explained to them the importance of restraints when intubated, the medications pt was on (propofol vs. precedex), and why the pt was intubated in the first place. Family was seen on camera trying to cycle BP's on the monitor and wiping out pts mouth. During this time, pt became agitated and This RN, another RN, and respiratory had to go into the room to ensure pt's safety. Family wanted to speak to a doctor, but were told that Dr. King was busy at the moment, and if they had concerns this RN could relay them to her and she could call them when available. Family stated that they were afraid the propofol would be increased overnight and no one would do anything for him. They also stated that they wanted to extubate him tomorrow. It was explained to them that he has to pass his vent trial in order to be extubated, and if they wished to take the tube out they would have to have a conversation about code status with the provider. This RN also explained it is not our intention to neglect him in any way and that we would use our best medical judgement to determine what is best for him during his stay. After the conversation, family was told visiting hours were over and that they would have to leave. Both family members refused at first, but they were told if they did not leave at this time then security would have to be called for an escort. This RN stepped out of the room so family could say goodbye, and it was noticed on the camera that family was trying to cycle another BP and got their phone flashlight out and were looking around the pt before they left the room.
--- NOTE | 2022-08-23 22:04 | CT_ITS ---
STUDY: CT BRAIN WITHOUT CONTRAST REASON FOR EXAM: Male, 52 years old. Encephalopathy RADIATION DOSAGE (If Supplied By Facility): CTDIvol = ( 44.99 ) mGy, DLP = ( 1952.17 ) mGycm TECHNIQUE: Transaxial CT imaging of the brain was performed without administration of intravenous contrast material. Individualized dose optimization techniques were used for this CT. COMPARISON: No relevant priors. FINDINGS: Normal soft tissue structures. Normal calvarium. Normal size ventricles and extra-axial spaces for the patient''s age. Normal white matter tracts of the cerebral hemispheres. Normal basal ganglia and thalami. Normal brainstem. Normal cerebellum. There is no intracranial hemorrhage. There are no findings of an acute ischemic infarction. Normal visualized paranasal sinuses. Study limited by excessive patient motion. CT/Brain/Head without Contrast IMPRESSION: No acute intracranial abnormality on study limited by excessive patient motion. Electronically Signed: George Bermudez MD at 3:51 EST Reading Location ID and State: [id number] / , Service support ,
[2022-08-23] MEDS: Acetaminophen 650 MG/20 ML UDC GT (23:32)
[2022-08-23] MEDS: Propofol 10MG/Ml 1,000 MG/100 ML Bottle 8.4 MG CONT INF (23:38)
[2022-08-24] VITALS (46 sets, daily range): BP systolic 66–188; BP diastolic 48–121; PULSE 67–149; RESP 10–36; TEMP 37.3–38.5; O2SAT 82–100
[2022-08-24 00:11] LABS: Bedside Glucose 181 mg/dL (74-106)
[2022-08-24 03:43] LABS: Absolute Lymphocyte Count 1.33 X10^3/uL (0.83-4.51); Absolute Neutrophil Count 3.9 X10^3/uL (2.0-7.7); Basophil# 0.01 X10^3/uL; Basophil% 0.2 % (0-1); Hemoglobin 12.5 g/dL (13.0-16.5); Lymphocyte # 1.33 X10^3/ul (0.83-4.51); Lymphocyte % 24.1 % (19-41); Mean Corp Hgb Conc 34.7 g/dL (32-36); Mean Corpuscular Hgb 31.3 pg (27.0-32.0); Mean Corpuscular Volume 90.2 fL (80-94); Mean Platelet Vol. 9.2 fl (6.2-12.0); Monocyte# 0.28 X10^3/uL; Monocyte% 5.1 % (0-10); NRBC Flagged by Analyzer 0 % (0-5); Neutrophil # 3.87 X10^3/uL (2.7-7.7); Neutrophil % 70.1 % (47-70); POSITIVE COUNT YES; Platelet Count 96 K/mm3 (150-450); RBC Distribution Width CV 13.6 % (11.6-14.6); RBC Distribution Width SD 45.1 fl (35.1-43.9); Red Blood Count 3.99 M/mm3 (4.6-6.2); White Blood Count 5.5 K/mm3 (4.4-11.0)
[2022-08-24 03:45] LABS: Differential Indicated SCAN CRITERIA MET
[2022-08-24 04:08] LABS: AST(SGOT) 148 U/L (15-37); Alanine Aminotransfer ALT/SGPT 102 U/L (16-61); Albumin, Serum 2.4 g/dL (3.2-5.0); Alkaline Phosphatase 127 U/L (45-117); Anion Gap 6 (5-15); BUN 37 mg/dL (7-18); Calcium,Total 7.3 mg/dL (8.5-10.1); Chloride 121 mmol/L (98-107); Creatinine, Serum 3.09 mg/dL (0.70-1.30); EST Glomerular Filtration Rate 23 mL/min (>60); Est Glom Filt Rate - Afr Amer 28 mL/min (>60); Estimated Creatinine Clearance 27.36 ml/min; Globulin 2.4 g/dL (2.2-4.2); Glucose 246 mg/dL (74-106); Potassium 3.1 mmol/L (3.5-5.1); Protein, Total 4.8 g/dL (6.4-8.2); Sodium Level 149 mmol/L (136-145)
[2022-08-24] MEDS: Propofol 10MG/Ml 1,000 MG/100 ML Bottle 12.6 MG CONT INF (06:14)
[2022-08-24 06:15] LABS: Bedside Glucose 271 mg/dL (74-106)
--- NOTE | 2022-08-24 06:16 | PN.CC_ITS ---
Assessment & Plan Assessment/Plan (1) Diabetic ketoacidosis: PLAN: Plan RECOMMENDATIONS: 1. Continue assist-control mode mechanical ventilation. Wean FiO2 for saturations greater than 90%. 2. Continue D5W and monitor sodium levels. 3. Continue empiric antimicrobials. 4. Continue tube feeds as tolerated. 5. Add scheduled Seroquel today. 6. Continue basal and sliding scale insulin regimen. 7. Continue appropriate ICU prophylaxis. IMPRESSIONS: 1. Acute respiratory failure The patient was intubated as a consequence of profound agitation and associated increased work of breathing, with concern for impending respiratory failure. He is doing well from a respiratory perspective on minimal FiO2. Plan to continue the aforementioned, with plans for daily paired spontaneous awakening and breathing trials. The patient will be maintained on his current sedation regimen. Seroquel will be added today. 2. Diabetic ketoacidosis Resolved. Likely secondary to outpatient noncompliance with prescribed medical therapy. The patient presented with significant DKA with profound anion gap metabolic acidosis. He has responded appropriately to aggressive fluid resuscitation, electrolyte repletion and continuous insulin infusion with resolution of his DKA. The patient has been transitioned to basal and sliding scale insulin coverage, which will be continued without change. I strongly advised that the patient follow-up with an tin whiz machine operator after discharge. 3. Encephalopathy Most likely metabolic in etiology. Anticipate slow recovery with stabilization of his underlying metabolic derangements. Continue supportive measures as noted above. 4. Acute kidney injury Most likely prerenal in etiology in the setting of significant intravascular volume depletion due to diabetic ketoacidosis. The patient is being aggressively fluid resuscitated. Creatinine is slowly improving with volume expansion. Continue to monitor urine output. No current indication for renal replacement therapy. 5. Hypernatremia/hypokalemia Improving. Likely secondary to utilization of normal saline during fluid resuscitation efforts. In light of the aforementioned, the patient has been started on D5W. We will need to monitor his blood glucose levels closely and make adjustments to his insulin regimen as well. TIME: 32 minutes of critical care time, independent of procedures, was spent address ing the patient's acute respiratory failure, diabetic ketoacidosis, encephalopathy, acute kidney injury, hypernatremia, review of all data and collaboration with the care team. Subjective Subjective The patient was seen and examined at the bedside this morning. Events from the last 24 hours have been reviewed. The patient currently has a low-grade fever but remains otherwise hemodynamically stable on assist control mode mechanical ventilation with an FiO2 requirement of 30% and PEEP of 5. The patient failed his spontaneous awakening trial this morning, becoming significantly agitated and non directable. He is currently documented to be overall net +13.5 L for the hospitalization. The patient is thrombocytopenic with a platelet count of 96,000. Sodium has improved to 149 with a potassium of 3.1 and chloride of 121. Creatinine has also improved to 3.09. Transaminases are likewise improving. Objective Data Objective Data The patient's most recent lab work, culture data and imaging studies have all been personally reviewed. Blood, urine and sputum cultures are pending. Renal ultrasound demonstrated no evidence of obstructive uropathy or suspicious solid renal lesion. Liver ultrasound demonstrated gallbladder wall thickening with pericholecystic fluid without any gallstones. Diffuse ascites was noted. Vital Signs: Vital Signs Temp Pulse Resp BP Pulse Ox O2 Del Method O2 Flow Rate 99.3 F H 77 14 95/72 100 Mechanical Ventilator 2 08/24/22 06:00 08/24/22 06:00 08/24/22 06:00 08/24/22 06:00 08/24/22 06:00 08/24/22 06:00 08/21/22 12:15 FiO2 30 08/24/22 05:12 Oxygen Flow Rate (L/min) 2 Oxygen Delivery Method Mechanical Ventilator Weight: 162 lb 7.691 oz Body Mass Index (BMI) 22.9 Intake & Output: Intake and Output for Last 24 Hours 08/22/22 08/23/22 08/24/22 23:59 23:59 23:59 Intake Total 7272.58 / 7274.93 4179.42 / 4190.00 217.00 / 217.00 Output Total 3100 / 3175 500 / 500 Balance 4172.58 / 4099.93 3679.42 / 3690.00 217.00 / 217.00 Lab / Micro Data Attestation: I reviewed the patient's lab results. Result Diagrams: 08/24/22 03:25 08/24/22 03:25 Labs: Laboratory Results - last 24 hr 08/22/22 05:45: U Random Total Protein 59.9 H, Urine Creatinine 47.80, Protei n/Creatinin Ratio 1253 H 08/23/22 04:51: WBC 6.7, RBC 3.99 L, Hgb 12.0 L, Hct 34.0 L, MCV 85.2, MCH 31.6, MCHC 36.9 H, RDW Std Deviation 39.1, RDW Coeff of Mika 12.8, Plt Count 114 L, MPV 8.8, Immature Gran % (Auto) 0.600, Neut % (Auto) 83.3 H, Lymph % (Auto) 10.5 L, [place] % (Auto) 5.4, Eos % (Auto) 0.0, Baso % (Auto) 0.2, Absolute Neuts (auto) 5.6, Absolute Lymphs (auto) 0.70 L, Nucleated RBC % 0 08/23/22 04:51: Total Creatine Kinase 1844 H, Triglycerides 168 08/23/22 04:51: Total Bilirubin 0.60, Direct Bilirubin 0.20, AST 329 H, ALT 124 H, Alkaline Phosphatase 153 H, Total Protein 5.1 L, Albumin 2.8 L, Globulin 2.3 08/23/22 04:51: GGT 174 H, Lipase 380 08/23/22 08:25: Ammonia 56.0 H 08/23/22 11:50: POC Glucose 216 H 08/23/22 23:35: POC Glucose 181 H 08/24/22 03:25: WBC 5.5, RBC 3.99 L, Hgb 12.5 L, Hct 36.0 L, MCV 90.2 D, MCH 31.3, MCHC 34.7 D, RDW Std Deviation 45.1 H, RDW Coeff of Mika 13.6, Plt Count 96 L, MPV 9.2, Immature Gran % (Auto) 0.500, Neut % (Auto) 70.1 H, Lymph % (Auto) 24.1, [place] % (Auto) 5.1, Eos % (Auto) 0.0, Baso % (Auto) 0.2, Absolute Neuts (auto) 3.9, Absolute Lymphs (auto) 1.33, Nucleated RBC % 0 08/24/22 03:25: Sodium 149 H, Potassium 3.1 L, Chloride 121 H, Carbon Dioxide 22 .0, Anion Gap 6, BUN 37 H, Creatinine 3.09 H, Estim Creat Clear Calc 27.36, Est GFR (MDRD) Af Amer 28 L, Est GFR (MDRD) Non-Af 23 L, BUN/Creatinine Ratio 12.0, Glucose 246 H, Calcium 7.3 L, Total Bilirubin 0.70, AST 148 H, ALT 102 H, Alkaline Phosphatase 127 H, Total Protein 4.8 L, Albumin 2.4 L, Globulin 2.4, Albumin/Globulin Ratio 1.0 08/24/22 05:56: POC Glucose 271 H Micro: Microbiology 08/23/22 10:35 Sputum, Induced/Lukens Gram Stain - Final ABG Data ABG results: ABG 08/22/22 08/23/22 21:08 04:28 Specimen Type ART ART Sample Site R Brach L Radial pH 7.48 H 7.35 Bicarbonate Actual 14.3 L 20.3 L Total CO2 15 21 Base Excess -9 L -5 L O2 Saturation 98 98 O2 % 30 ABG pCO2 19.3 L 36.9 ABG pO2 101 H 116 H Adeel Test Positive Positive Respiration Rate 14 O2 Delivery Device Adult Vent Vent Mode AC Tidal Volume 500 POC PEEP 5 Radiography Diagnostic Testing: Radiology Impression Renal Ultrasound 08/23/22 10:56 IMPRESSION: No obstructive uropathy or suspicious solid renal lesion Enlarged spleen Bladder collapsed around a Hogue catheter. Bladder wall is thickened and heterogeneous Electronically Signed: Jon Maldonado MD at 13:22 EST , Liver Ultrasound 08/23/22 11:51 IMPRESSION: Hepatomegaly, no discrete lesion Gallbladder wall thickening with pericholecystic fluid. No gallstones, animation artist notes a negative Serna sign. If there is strong clinical suspicion of acalculous cholecystitis, consider further evaluation with HIDA scan Diffuse ascites Electronically Signed: Jon Maldonado MD at 13:26 EST , Physical Exam Const no apparent distress General Appearance: intubated and patient mechanically ventilated HEENT normocephalic and head/scalp atraumatic Mouth: endotracheal tube in place and OG tube in place Eyes PERRL and EOMs intact bilaterally Neck supple General: trachea midline Chest inspection of chest normal Resp normal respiratory effort Auscultation: Negative for rales, rhonchi or wheezes Cardio regular rate and regular rhythm GI normal to inspection, nondistended, normoactive bowel sounds Extremity no clubbing, cyanosis or edema Skin no rashes or lesions noted Neuro Sensorium / Orientation: sedated on vent Charges/Coding Procedures Hospitalists Procedures: 01544 Critial Care 1st Hr
[2022-08-24] MEDS: Insulin Lispro 100 UNIT/ML INSULN.PEN SC ×2 (06:18→12:28)
[2022-08-24] MEDS: Insulin Glargine-YFGN 100 UNIT/ML Pen 35 UNIT SC (06:28)
[2022-08-24] MEDS: Potassium Chloride 10mEq/100mL 10 MEQ/100 ML IV.SOLN. 100 MEQ IV BOLUS ×4 (06:41→09:45)
[2022-08-24 07:50] LABS: Bedside Glucose 320 mg/dL (74-106)
[2022-08-24 07:50] LABS: Bedside Glucose 324 mg/dL (74-106)
[2022-08-24] MEDS: Chlorhexidine 15 ML PO ×2 (07:54→23:02)
[2022-08-24] MEDS: QUEtiapine 25 MG Tablet 50 MG PO ×2 (08:30→23:02)
--- NOTE | 2022-08-24 10:29 | CASEMGMT ---
Social Work SW received a VM from pt family last evening stating they would like to talk with SW about some concerns. SW entered pt room at this time and introduced self to pt and daughter. Pt agitated and attempting to calm and not able to talk with SW at this time. SW informed family that if they would like to speak with SW at a later time, ask nursing to call SW and SW will return. STEPHANIE Mccormack
--- NOTE | 2022-08-24 10:31 | PCM.PN.HOSP ---
Subjective Subjective Initially on evaluation earlier this morning he was intubated and sedated unrestful on vent, was called after he was extubated per family preference because of agitation, went to bedside and family was holding him down and he was very confused and not following commands or doing anything purposeful, he was given Ativan and after this helped only minimally discussed Precedex with family and weighed pros and cons, ultimately they were agreeable. They further discussed with Dr. Douglas de la o and he was reintubated per their preference and MRI and EEG were obtained to further evaluate mental status. Objective Data Objective Data Vital Signs: Vital Signs Temp Pulse Resp BP Pulse Ox O2 Del Method O2 Flow Rate 99.2 F H 86 14 107/81 H 100 Mechanical Ventilator 2 08/24/22 07:00 08/24/22 08:00 08/24/22 07:09 08/24/22 07:00 08/24/22 07:09 08/24/22 07:00 08/21/22 12:15 FiO2 30 08/24/22 07:09 Oxygen Flow Rate (L/min) 2 Oxygen Delivery Method Mechanical Ventilator Weight: 73.7 kg Body Mass Index (BMI) 22.9 Intake & Output: Intake and Output for Last 24 Hours 08/22/22 08/23/22 08/24/22 23:59 23:59 23:59 Intake Total 7272.58 / 7274.93 4179.42 / 4190.00 2377.74 / 2377.74 Output Total 3100 / 3175 500 / 500 75 / 75 Balance 4172.58 / 4099.93 3679.42 / 3690.00 2302.74 / 2302.74 Lab / Micro Data Result Diagrams: 08/24/22 17:00 08/24/22 17:00 Labs: Laboratory Results - last 24 hr 08/22/22 05:45: U Random Total Protein 59.9 H, Urine Creatinine 47.80, Protein/Creatinin Ratio 1253 H 08/23/22 04:51: GGT 174 H, Lipase 380 08/23/22 11:50: POC Glucose 216 H 08/23/22 18:37: POC Glucose 320 H 08/23/22 18:39: POC Glucose 324 H 08/23/22 23:35: POC Glucose 181 H 08/24/22 03:25: WBC 5.5, RBC 3.99 L, Hgb 12.5 L, Hct 36.0 L, MCV 90.2 D, MCH 31.3, MCHC 34.7 D, RDW Std Deviation 45.1 H, RDW Coeff of Mika 13.6, Plt Count 96 L, MPV 9.2, Immature Gran % (Auto) 0.500, Neut % (Auto) 70.1 H, Lymph % (Auto) 24.1, [place] % (Auto) 5.1, Eos % (Auto) 0.0, Baso % (Auto) 0.2, Absolute Neuts (auto) 3.9, Absolute Lymphs (auto) 1.33, Nucleated RBC % 0 08/24/22 03:25: Sodium 149 H, Potassium 3.1 L, Chloride 121 H, Carbon Dioxide 22.0, Anion Gap 6, BUN 37 H, Creatinine 3.09 H, Estim Creat Clear Calc 27.36, Est GFR (MDRD) Af Amer 28 L, Est GFR (MDRD) Non-Af 23 L, BUN/Creatinine Ratio 12.0, Glucose 246 H, Calcium 7.3 L, Total Bilirubin 0.70, AST 148 H, ALT 102 H, Alkaline Phosphatase 127 H, Total Protein 4.8 L, Albumin 2.4 L, Globulin 2.4, Albumin/Globulin Ratio 1.0 08/24/22 05:56: POC Glucose 271 H 08/24/22 08:00: Ammonia 54.0 H Micro: Microbiology 08/22/22 10:50 Blood Culture (Wb) - Anticubital Right Blood Culture - Preliminary No growth in 48 hours. 08/22/22 10:35 Urine Catheter - Hogue Urine Culture - Final Culture exhibits no growth. 08/23/22 10:35 Sputum, Induced/Lukens Gram Stain - Final Radiography Diagnostic Testing: Radiology Impression Renal Ultrasound 08/23/22 10:56 IMPRESSION: No obstructive uropathy or suspicious solid renal lesion Enlarged spleen Bladder collapsed around a Hogue catheter. Bladder wall is thickened and heterogeneous Electronically Signed: Jon Maldonado MD at 13:22 EST , Liver Ultrasound 08/23/22 11:51 IMPRESSION: Hepatomegaly, no discrete lesion Gallbladder wall thickening with pericholecystic fluid. No gallstones, wire frame lampshade maker notes a negative Serna sign. If there is strong clinical suspicion of acalculous cholecystitis, consider further evaluation with HIDA scan Diffuse ascites Electronically Signed: Jon Maldonado MD at 13:26 EST Reading Location ID and State: [address] [place] [address] , Service support , Physical Exam Narrative Initial exam as below Const Constitutional Narrative: Sedated HEENT normocephalic and head/scalp atraumatic Eyes Eyes Narrative: Was not opening eyes spontaneously to voice Neck Neck Narrative: ET tube in place Resp Resp Narrative: Mechanically ventilated Cardio regular rate and regular rhythm GI soft to palpation Extremity Extremity Narrative: No edema appreciated Neuro Neuro Narrative: Intubated and sedated Psych Psych Narrative: Unable to cooperate secondary to sedation Assessment & Plan Assessment/Plan (1) Diabetic ketoacidosis: (2) Acute kidney failure: PLAN: Plan #Encephalopathy Considered likely metabolic in etiology Had been significantly agitated and was requiring medication for agitation Over night required intubation and is now intubated and sedated Third been concerned that may be this was in part due to alcohol withdrawal but family reported that he drinks 4-5 times per week TSH was normal Started on Precedex yesterday due to being refractory to Haldol and Geodon however overnight due to hypotension the Precedex was attempted to be weaned and he became very agitated Eventually had respiratory distress and was intubated CT head unremarkable Now intubated and sedated currently on propofol and fentanyl 08/24: Extubated per family preference and became very agitated and confused, was given Ativan and Precedex with minimal improvement. Patient was reintubated per family preference so MRI and EEG can be obtained. MRI unremarkable, EEG nonspecific. Neurology evaluated and recommended to consider alcohol withdrawal and continue empiric antibiotics. #Hypotension Attempted to start Precedex overnight but he would become significantly agitated and was not alert Given low BP despite adequate fluid resuscitation he was started on Zosyn. WBC count normalized though could have been reactive, unclear Remains in the ICU Blood culture and urine culture pending Chest x-ray unremarkable 08/24: Seems in part due to sedation his blood pressure was improved when he was awake and agitated, given back on sedation family has been consented for PICC line so levo can be started #Hypernatremia Dextrose started by ICU team, will need to monitor glucose closely and can restart insulin drip if needed #Diabetic ketoacidosis in the setting of type 1 diabetes Had been inconsistent taking his insulin prior to admission Had high anion gap metabolic acidosis on admission Was given aggressive fluid resuscitation, electrolyte repletion, and was on an insulin drip Anion gap has been closed and he was transitioned to basal insulin with sliding scale coverage #GONSALO Likely prerenal Has received volume resuscitation Monitor output Initially improved and then slightly worsened today Of note CK that was checked was in fact elevated which may certainly be a factor 08/24: Has trended down, nephrology following #DVT ppx: Apply SCDs Christina Manuel MD Charges/Coding Visit Charges Inpatient E&M: 07893 Subs Hosp L2
--- NOTE | 2022-08-24 11:05 | PCM.PN.REN ---
Subjective Subjective Patient remained intubated, more agitated this morning Nonoliguric with slight improvement of renal function Objective Data Objective Data Vital Signs: Vital Signs Temp Pulse Resp BP Pulse Ox O2 Del Method O2 Flow Rate 99.2 F H 86 14 107/81 H 100 Mechanical Ventilator 2 08/24/22 07:00 08/24/22 08:00 08/24/22 07:09 08/24/22 07:00 08/24/22 07:09 08/24/22 07:00 08/21/22 12:15 FiO2 30 08/24/22 07:09 Oxygen Flow Rate (L/min) 2 Oxygen Delivery Method Mechanical Ventilator Weight: 73.7 kg Body Mass Index (BMI) 22.9 Intake & Output: Intake and Output for Last 24 Hours 08/22/22 08/23/22 08/24/22 23:59 23:59 23:59 Intake Total 7272.58 / 7274.93 4179.42 / 4190.00 2377.74 / 2377.74 Output Total 3100 / 3175 500 / 500 75 / 75 Balance 4172.58 / 4099.93 3679.42 / 3690.00 2302.74 / 2302.74 Lab / Micro Data Result Diagrams: 08/24/22 03:25 08/24/22 03:25 Labs: Laboratory Results - last 24 hr 08/22/22 05:45: U Random Total Protein 59.9 H, Urine Creatinine 47.80, Protein/Creatinin Ratio 1253 H 08/23/22 04:51: GGT 174 H, Lipase 380 08/23/22 11:50: POC Glucose 216 H 08/23/22 18:37: POC Glucose 320 H 08/23/22 18:39: POC Glucose 324 H 08/23/22 23:35: POC Glucose 181 H 08/24/22 03:25: WBC 5.5, RBC 3.99 L, Hgb 12.5 L, Hct 36.0 L, MCV 90.2 D, MCH 31.3, MCHC 34.7 D, RDW Std Deviation 45.1 H, RDW Coeff of Mika 13.6, Plt Count 96 L, MPV 9.2, Immature Gran % (Auto) 0.500, Neut % (Auto) 70.1 H, Lymph % (Auto) 24.1, [place] % (Auto) 5.1, Eos % (Auto) 0.0, Baso % (Auto) 0.2, Absolute Neuts (auto) 3.9, Absolute Lymphs (auto) 1.33, Nucleated RBC % 0 08/24/22 03:25: Sodium 149 H, Potassium 3.1 L, Chloride 121 H, Carbon Dioxide 22.0, Anion Gap 6, BUN 37 H, Creatinine 3.09 H, Estim Creat Clear Calc 27.36, Est GFR (MDRD) Af Amer 28 L, Est GFR (MDRD) Non-Af 23 L, BUN/Creatinine Ratio 12.0, Glucose 246 H, Calcium 7.3 L, Total Bilirubin 0.70, AST 148 H, ALT 102 H, Alkaline Phosphatase 127 H, Total Protein 4.8 L, Albumin 2.4 L, Globulin 2.4, Albumin/Globulin Ratio 1.0 08/24/22 05:56: POC Glucose 271 H 08/24/22 08:00: Ammonia 54.0 H Micro: Microbiology 08/22/22 10:50 Blood Culture (Wb) - Anticubital Right Blood Culture - Preliminary No growth in 48 hours. 08/22/22 10:35 Urine Catheter - Hogue Urine Culture - Final Culture exhibits no growth. 08/23/22 10:35 Sputum, Induced/Lukens Gram Stain - Final Radiography Diagnostic Testing: Radiology Impression Renal Ultrasound 08/23/22 10:56 IMPRESSION: No obstructive uropathy or suspicious solid renal lesion Enlarged spleen Bladder collapsed around a Hogue catheter. Bladder wall is thickened and heterogeneous Electronically Signed: Jon Maldonado MD at 13:22 EST , Liver Ultrasound 08/23/22 11:51 IMPRESSION: Hepatomegaly, no discrete lesion Gallbladder wall thickening with pericholecystic fluid. No gallstones, plisse machine operator notes a negative Serna sign. If there is strong clinical suspicion of acalculous cholecystitis, consider further evaluation with HIDA scan Diffuse ascites Electronically Signed: Jon Maldonado MD at 13:26 EST , Physical Exam Narrative On mechanical ventilation. More agitated S1, S2, RRR Lung coarse breath sound anteriorly Abdomen is soft No edema Indwelling Hogue catheter with clear urine in bag Assessment & Plan Assessment/Plan (1) Diabetic ketoacidosis: (2) Acute kidney failure: (3) Hypernatremia: (4) Acute respiratory failure: PLAN: Plan For renal insufficiency, it is unknown if this is acute kidney injury versus CKD. According to patient's , patient had lab work drawn at least 3 months ago and routinely by PCP. We will attempt to obtain labs to determine baseline kidney function. On presentation to the emergency room, creatinine was 5.06 mg/dL on August 21 and today SCr improved to 4.00 mg/dL. He is nonoliguric. There is no acute indication for RETAIL SALES ASSISTANT at this time as potassium and acid-base acceptable and patient appears near euvolemic on exam. Chest x-ray reviewed, no acute cardiopulmonary disease, no pulmonary edema. GONSALO likely prerenal which may have progressed to ATN from DKA, Hypotension. Patient's UA positive glucose 1000, protein 100, occult blood 150, negative leukocyte and no RBCs. We will obtain renal ultrasound to rule out obstructive process contributing to GONSALO however patient does have indwelling Hogue with good urine output at the present time. Patient developed agitation yesterday with concern for his respiratory status and was subsequently intubated. His CT did not show any acute intracranial abnormality. Continue on IVF as ordered. BPs are improving, not on pressor support at this time. According to patient's , no new medications, patient was not taking any diuretics, GRADY or ARB before hospitalization. Further orders forthcoming as hospitalization evolves. Thank you for allowing us participate in the care of Mr. Paris. 08/24 -Urine output is improving, solute clearance is better with serum creatinine of 3.09 mg/dL -Sodium is improved down to 149 mmol/L -Right upper quadrant ultrasound shows ascites, unclear whether from volume expansion, regardless will obtain echocardiogram -Can decrease IV fluids to D5 W with 40 mill equivalent of potassium chloride at 70 cc an hour -No need for renal placement therapy Thank you please call [phone] with any concerns. Discussed with critical care nurse specialist
[2022-08-24 12:41] LABS: Bedside Glucose 439 mg/dL (74-106)
--- NOTE | 2022-08-24 12:49 | ECHOD_ITS ---
Reason For Study: Other Procedure This was a 2D Doppler, Color Flow transthoracic echocardiogram. The exam was of adequate technical quality. Exam performed portable in ICU/CCU. Left Ventricle Normal LV size. Left ventricular systolic function is lower limits of normal. The estimated ejection fraction is 50 %. No evidence for diastolic dysfunction. No regional wall motion abnormalities noted. Right Ventricle Normal RV size. Normal systolic function. Atria Normal left atrium. Normal right atrium. No doppler evidence for ASD. Mitral Valve There is no mitral annular calcification. Normal mitral valve. Trivial mitral valve insufficiency. Tricuspid Valve Normal tricuspid valve. Trivial tricuspid valve insufficiency. Right ventricular systolic pressure estimated to be 30 mmHg. Aortic Valve Trisinus/trileaflet aortic valve. Mild diffuse aortic valve thickening. Mild focal aortic valve calcification. Pulmonic Valve The pulmonic valve is not well visualized. Great Vessels Borderline enlarged aortic root. Pericardium/Pleural No pericardial effusion. MMode/2D Measurements & Calculations LVIDd: 4.5 cm IVSd: 0.94 cm Ao root diam: 3.9 cm LVIDs: 3.3 cm LVPWd: 1.0 cm RVDd: 3.8 cm FS: 27.5 % LAV(MOD-bp): 22.1 ml LVAd ap4: 27.4 cm2 SV(MOD-sp4): 39.9 ml LAV(MOD-bp) Indexed: 11.8 ml/m2 LVLd ap4: 7.8 cm LAV(MOD-sp2): 24.1 ml EDV(MOD-sp4): 79.0 ml LAV(MOD-sp4): 20.1 ml EDV(sp4-el): 81.7 ml LVAs ap4: 17.6 cm2 LVLs ap4: 6.7 cm ESV(MOD-sp4): 39.1 ml ESV(sp4-el): 39.3 ml EF(MOD-sp4): 50.5 % EF(sp4-el): 51.8 % SV(sp4-el): 42.3 ml LA A4 area: 10.1 cm2 LA dimension(2D): 3.6 cm RA A4 area: 12.0 cm2 Doppler Measurements & Calculations MV E max lisandro: 61.2 cm/sec Lat Peak E' Lisandro: 9.0 cm/sec Med Peak E' Lisandro: 8.5 cm/sec MV A max lisandro: 73.2 cm/sec E/E' lat: 6.8 E/E' med: 7.2 MV E/A: 0.84 Ao V2 max: 102.0 cm/sec LV V1 max: 91.9 cm/sec PA V2 max: 74.6 cm/sec Ao max P.2 mmHg LV V1 max P.4 mmHg Ao V2 mean: 72.1 cm/sec Ao mean P.3 mmHg Ao V2 VTI: 17.7 cm TR max lisandro: 192.2 cm/sec TR max P.8 mmHg ECHO/Echo Complete Interpretation Summary Left ventricular systolic function is lower limits of normal. The estimated ejection fraction is 50 %. Trivial mitral valve insufficiency. Trivial tricuspid valve insufficiency. Mild diffuse aortic valve thickening. Mild focal aortic valve calcification. Borderline enlarged aortic root. Right ventricular systolic pressure estimated to be 30 mmHg. No evidence for diastolic dysfunction. Ordering Physician: Carlito Hall Referring Physician: Jolly Cardenas Performed By: Radha Bae, ANN, RVT
[2022-08-24] MEDS: LORazepam 2 MG/ML Syringe IV (13:26)
[2022-08-24] MEDS: Midazolam 2 MG/2 ML Syringe IV (14:00)
[2022-08-24] MEDS: Etomidate 20 MG/10 ML Vial IV (14:05)
[2022-08-24] MEDS: Propofol 10MG/Ml 1,000 MG/100 ML Bottle 4.4 MG CONT INF (14:10)
--- NOTE | 2022-08-24 14:12 | MRI_ITS ---
STUDY: MRI BRAIN WITHOUT CONTRAST REASON FOR EXAM: Male, 52 years old. Altered Mental Status -- Per Dr Cole order TECHNIQUE: Standardized multiplanar fat and water weighted pulse sequences were obtained. COMPARISON: CT of the brain August 23, 2022. HEMISPHERES, CEREBELLUM AND BRAINSTEM: 1. The cerebral parenchyma, ventricular system, subarachnoid spaces have normal configuration and density. There is a normal gyral pattern. There is normal reyes/white differentiation. No midline shift.. 2. The hemispheric white matter has normal appearance. 3. No intraparenchymal mass, hemorrhage, or acute territorial infarct. 4. The cerebellum, brainstem, basilar and suprasellar cisterns have normal appearance. No Chiari malformation. Cavum septum pellucidum is observed consistent with normal variant PITUITARY: Infundibulum and pituitary have normal configuration. Midline structures appear normal. CSF SPACES: Appropriate for age. No hydrocephalus. Basal cisterns are patent. VESSELS: 1. There are normal flow voids noted in the great vessels at the skull base ORBITS AND PARANASAL SINUSES: 1. Both globes, extraocular muscles, optic nerves and retrobulbar fat appear unremarkable. 2. Mild mucosal thickening of the left frontal and bilateral anterior ethmoid air cells. BONY ELEMENTS: Bony elements of the cranial vault, facial skeleton and skull base have normal appearance. SCALP AND SOFT TISSUES: Normal appearance of the soft tissues of the scalp and the visualized face OTHER: None MRI/Brain without Contrast IMPRESSION: 1. No intracranial mass, hemorrhage, or acute territorial infarct. 2. Bilateral ethmoid and left frontal sinus disease likely chronic Electronically Signed: Sha Lagunas MD at 16:10 EST ,
--- NOTE | 2022-08-24 14:20 | RAD_ITS ---
STUDY: X-RAY CHEST REASON FOR EXAM: Male, 52 years old. Intubation TECHNIQUE: Single AP portable view of the chest. COMPARISON: August 23, 2022 chest x-ray FINDINGS: An endotracheal tube is present 3.5 cm above the sai. An NG tube is present the tip is in the stomach. Since prior study there is slightly greater prominence of the vascular markings and minimal linear density in the right lung periphery. There is no demonstrated pleural abnormality. Normal size heart. Normal mediastinum and regina. Normal visualized pulmonary arteries. Normal visualized aortic arch and descending thoracic aorta. There are diffuse degenerative changes of the visualized thoracic spine. Normal visualized ribs, clavicles, and shoulders. There is no demonstrated abnormality of the visualized soft tissue structures of the upper abdomen. RAD/Chest 1 View (Portable) IMPRESSION: Findings suggestive of possible mild vascular congestion. ET tube and NG tube are in satisfactory position. Electronically Signed: Freya Zuñiga MD at 15:24 EST ,
--- NOTE | 2022-08-24 14:23 | NURSING ---
1350 decision, per family, to inbuate patient. See MAR for meds. 1409 pt intubated, 23 lip, size 7.5. sedation restarted per oct.
--- NOTE | 2022-08-24 14:25 | TELEMED_ITS ---
[facility] has confirmed receipt of a request for visit. This document confirms receipt of the order initiating the consult. To find the results of the consultation, please view the patient's reports for the scanned Telemed Consult.
--- NOTE | 2022-08-24 15:15 | NURSING ---
0920 meeting with family, Dr. Cole, Melvi Huston, Ivonne RN, Dinah, and Melvi RT at bedside. discussed plan of care at length. Pao and pt daughter requesting to have pt extubated. Pao and pt daughter confident they can keep patient calm while attempting breathing trial. 1140 decision to extubate.1145 pt extremely agitated, attempting to get out of bed, pulling on bilateral wrist restraints, elbows and wrists are very red, unable to communicate with pt. pt yelling, pt does not answer questions.Pao and pt daughter confident they can calm pt down. 1220 daughter requesting pt have ativan. physicians made aware. see mar and orders. 1300 Pao and pt daughter refusing precedex, pt still very agitated, 1324 Pao and pt daughter have agreed to start precedex. 1355 Pao and pt daughter requesting pt have, brain scan, Pao and pt daughter are requesting pt be intubated, so testing can be done.
--- NOTE | 2022-08-24 15:54 | NURSING ---
1500 ok to keep deeply sedated for mri and eeg per dr. miller and Pao and pt's daughters request
[2022-08-24 16:26] LABS: Allen Test Positive; Base Excess -4 mmol/L (-2 to +2); Bicarbonate 20.3 mmol/L (22-26); Blood Gas Specimen Type ART; FI02 30; Mode AC; O2 Delivery Device Adult Vent; PEEP 5; PO2 141 mmHG (75-100); RR 12; SITE R Radial; SO2 99 % (95-99); Total Carbon Dioxide 21 mmol/L; Vt 450; pCO2 29.7 mmHg (35-45); pH 7.44 (7.35-7.45)
[2022-08-24 17:19] LABS: Absolute Lymphocyte Count 1.36 X10^3/uL (0.83-4.51); Absolute Neutrophil Count 5.9 X10^3/uL (2.0-7.7); Basophil# 0.01 X10^3/uL; Basophil% 0.1 % (0-1); Eosinophil# 0.01 X10^3/uL; Eosinophils% 0.1 % (0-5); Hematocrit 35.6 % (40-54); Hemoglobin 12.3 g/dL (13.0-16.5); Lymphocyte # 1.36 X10^3/ul (0.83-4.51); Lymphocyte % 17.1 % (19-41); Mean Corp Hgb Conc 34.6 g/dL (32-36); Mean Corpuscular Hgb 31.4 pg (27.0-32.0); Mean Corpuscular Volume 90.8 fL (80-94); Mean Platelet Vol. 8.8 fl (6.2-12.0); Monocyte% 7.5 % (0-10); NRBC Flagged by Analyzer 0 % (0-5); Neutrophil # 5.93 X10^3/uL (2.7-7.7); Neutrophil % 74.7 % (47-70); POSITIVE COUNT YES; Platelet Count 82 K/mm3 (150-450); RBC Distribution Width CV 13.6 % (11.6-14.6); RBC Distribution Width SD 45.5 fl (35.1-43.9); Red Blood Count 3.92 M/mm3 (4.6-6.2)
[2022-08-24 17:23] LABS: Differential Indicated SCAN CRITERIA MET
[2022-08-24] MEDS: Dextrose 50%-Water 25 GM/50 ML DISP.SYRIN IV (18:04)
[2022-08-24 18:10] LABS: CPK Total, Creatine Kinase 1415 U/L (39-308); Triglycerides 130 mg/dL
[2022-08-24 18:15] LABS: Differential Comment SCANNED
[2022-08-24 18:16] LABS: ALB/GLOB Ratio 1.1 RATIO (0.9-2.4); AST(SGOT) 121 U/L (15-37); Alanine Aminotransfer ALT/SGPT 93 U/L (16-61); Albumin, Serum 2.6 g/dL (3.2-5.0); Alkaline Phosphatase 126 U/L (45-117); Anion Gap 5 (5-15); BUN 40 mg/dL (7-18); BUN/Creat Ratio 14.3 RATIO (10-20); Calcium,Total 8.1 mg/dL (8.5-10.1); Chloride 124 mmol/L (98-107); Creatinine, Serum 2.79 mg/dL (0.70-1.30); EST Glomerular Filtration Rate 26 mL/min (>60); Est Glom Filt Rate - Afr Amer 31 mL/min (>60); Globulin 2.4 g/dL (2.2-4.2); Glucose 84 mg/dL (74-106); Iron 88 ug/dL (65-175); LDH 402 U/L (87-241); Magnesium 2.3 mg/dL (1.6-2.6); Potassium 3.5 mmol/L (3.5-5.1); Sodium Level 152 mmol/L (136-145)
[2022-08-24 18:16] LABS: Bedside Glucose 66 mg/dL (74-106)
--- NOTE | 2022-08-24 19:07 | NURSING ---
1800 phone call from daughter Bharti, states,take my father off the precedex, it is going to kill him. 1814 Dr. morejon notified 1829 Bharti rn charge spoke with family.
[2022-08-24 20:41] LABS: Bedside Glucose 81 mg/dL (74-106)
[2022-08-24] MEDS: Propofol 10MG/Ml 1,000 MG/100 ML Bottle 13.3 MG CONT INF (21:00)
[2022-08-24] MEDS: 0.9% Saline Lock 10 ML Syringe IV (22:45)
[2022-08-25] VITALS (39 sets, daily range): BP systolic 98–179; BP diastolic 65–98; PULSE 63–123; RESP 12–26; TEMP 36.6–37.7; O2SAT 94–100
[2022-08-25] MEDS: 0.9% Saline Lock 10 ML Syringe IV ×3 (00:16→05:55)
[2022-08-25] MEDS: Dextrose 50%-Water 25 GM/50 ML DISP.SYRIN IV (00:53)
[2022-08-25] MEDS: CHLORHEXIDINE GLUC 2% CLOTH 1 EACH TOWELETTE TOPICAL ×2 (01:00→07:57)
[2022-08-25] MEDS: Propofol 10MG/Ml 1,000 MG/100 ML Bottle 17.7 MG CONT INF ×4 (01:19→18:06)
[2022-08-25 03:40] LABS: Bedside Glucose 56 mg/dL (74-106)
[2022-08-25 03:40] LABS: Bedside Glucose 154 mg/dL (74-106)
[2022-08-25 04:24] LABS: Absolute Lymphocyte Count 1.55 X10^3/uL (0.83-4.51); Absolute Neutrophil Count 5.4 X10^3/uL (2.0-7.7); Basophil# 0.01 X10^3/uL; Basophil% 0.1 % (0-1); Eosinophil# 0.17 X10^3/uL; Eosinophils% 2.2 % (0-5); Hematocrit 34.6 % (40-54); Hemoglobin 12.2 g/dL (13.0-16.5); Lymphocyte # 1.55 X10^3/ul (0.83-4.51); Lymphocyte % 20.4 % (19-41); Mean Corp Hgb Conc 35.3 g/dL (32-36); Mean Corpuscular Hgb 32.4 pg (27.0-32.0); Mean Platelet Vol. 9.6 fl (6.2-12.0); Monocyte% 5.3 % (0-10); NRBC Flagged by Analyzer 0 % (0-5); Neutrophil # 5.42 X10^3/uL (2.7-7.7); Neutrophil % 71.5 % (47-70); POSITIVE COUNT YES; Platelet Count 85 K/mm3 (150-450); RBC Distribution Width CV 13.5 % (11.6-14.6); RBC Distribution Width SD 45.4 fl (35.1-43.9); Red Blood Count 3.76 M/mm3 (4.6-6.2); White Blood Count 7.6 K/mm3 (4.4-11.0)
[2022-08-25 04:38] LABS: ALB/GLOB Ratio 0.8 RATIO (0.9-2.4); AST(SGOT) 202 U/L (15-37); Alanine Aminotransfer ALT/SGPT 127 U/L (16-61); Albumin, Serum 2.2 g/dL (3.2-5.0); Alkaline Phosphatase 174 U/L (45-117); Anion Gap 5 (5-15); BUN 29 mg/dL (7-18); BUN/Creat Ratio 12.9 RATIO (10-20); Calcium,Total 7.2 mg/dL (8.5-10.1); Chloride 118 mmol/L (98-107); Creatinine, Serum 2.25 mg/dL (0.70-1.30); EST Glomerular Filtration Rate 33 mL/min (>60); Est Glom Filt Rate - Afr Amer 40 mL/min (>60); Estimated Creatinine Clearance 37.58 ml/min; Globulin 2.6 g/dL (2.2-4.2); Glucose 166 mg/dL (74-106); Potassium 3.2 mmol/L (3.5-5.1); Protein, Total 4.8 g/dL (6.4-8.2); Sodium Level 147 mmol/L (136-145)
[2022-08-25] MEDS: Potassium Chloride Oral Soln 20 MEQ/15 ML UDC 40 MEQ PO (06:29)
[2022-08-25] MEDS: Insulin Lispro 100 UNIT/ML INSULN.PEN SC ×2 (06:37→17:16)
[2022-08-25] MEDS: Insulin Glargine-YFGN 100 UNIT/ML Pen 35 UNIT SC ×2 (06:37→17:17)
--- NOTE | 2022-08-25 06:40 | PN.HOSP_ITS ---
Subjective Subjective Presently intubated., On propofol, fentanyl, maintenance fluids and on levo at this time. Resting comfortably Objective Data Objective Data Vital Signs: Vital Signs Temp Pulse Resp BP Pulse Ox O2 Del Method O2 Flow Rate 98.5 F 63 13 99/69 97 Mechanical Ventilator 2 08/25/22 04:00 08/25/22 04:30 08/25/22 04:30 08/25/22 04:30 08/25/22 04:30 08/25/22 04:30 08/24/22 14:45 FiO2 30 08/25/22 04:30 Oxygen Flow Rate (L/min) 2 Oxygen Delivery Method Mechanical Ventilator Weight: 75 kg Body Mass Index (BMI) 22.9 Intake & Output: Intake and Output for Last 24 Hours 08/23/22 08/24/22 08/25/22 23:59 23:59 23:59 Intake Total 4179.42 / 4190.00 4068.92 / 4102.13 1307.81 / 1307.81 Output Total 500 / 500 975 / 1075 950 / 950 Balance 3679.42 / 3690.00 3093.92 / 3027.13 357.81 / 357.81 Lab / Micro Data Result Diagrams: 08/25/22 04:10 08/25/22 04:10 Labs: Laboratory Results - last 24 hr 08/23/22 18:37: POC Glucose 320 H 08/23/22 18:39: POC Glucose 324 H 08/24/22 08:00: Ammonia 54.0 H 08/24/22 12:22: POC Glucose 439 H 08/24/22 17:00: WBC 8.0, RBC 3.92 L, Hgb 12.3 L, Hct 35.6 L, MCV 90.8, MCH 31.4, MCHC 34.6, RDW Std Deviation 45.5 H, RDW Coeff of Mika 13.6, Plt Count 82 L, MPV 8.8, Immature Gran % (Auto) 0.500, Neut % (Auto) 74.7 H, Lymph % (Auto) 17.1 L, [place] % (Auto) 7.5, Eos % (Auto) 0.1, Baso % (Auto) 0.1, Absolute Neuts (auto) 5.9, Absolute Lymphs (auto) 1.36, Nucleated RBC % 0, Differential Comment SCANNED 08/24/22 17:00: Sodium 152 H, Potassium 3.5, Chloride 124 H, Carbon Dioxide 23.0, Anion Gap 5, BUN 40 H, Creatinine 2.79 H, Estim Creat Clear Calc 30.30, Est GFR (MDRD) Af Amer 31 L, Est GFR (MDRD) Non-Af 26 L, BUN/Creatinine Ratio 14.3, Glucose 84, Calcium 8.1 L, Magnesium 2.3, Iron 88, Total Bilirubin 0.70, AST 121 H, ALT 93 H, Alkaline Phosphatase 126 H, Lactate Dehydrogenase 402 H, Total Creatine Kinase Cancelled, Total Protein 5.0 L, Albumin 2.6 L, Globulin 2.4, Albumin/Globulin Ratio 1.1 08/24/22 17:00: Total Creatine Kinase 1415 H, Triglycerides 130 08/24/22 17:55: POC Glucose 66 L 08/24/22 20:03: POC Glucose 81 08/25/22 00:47: POC Glucose 56 L 08/25/22 01:21: POC Glucose 154 H 08/25/22 04:10: WBC 7.6, RBC 3.76 L, Hgb 12.2 L, Hct 34.6 L, MCV 92.0, MCH 32.4 H, MCHC 35.3, RDW Std Deviation 45.4 H, RDW Coeff of Mika 13.5, Plt Count 85 L, MPV 9.6, Immature Gran % (Auto) 0.500, Neut % (Auto) 71.5 H, Lymph % (Auto) 20.4, [place] % (Auto) 5.3, Eos % (Auto) 2.2, Baso % (Auto) 0.1, Absolute Neuts (auto) 5.4, Absolute Lymphs (auto) 1.55, Nucleated RBC % 0 08/25/22 04:10: Sodium 147 H, Potassium 3.2 L, Chloride 118 H, Carbon Dioxide 24.0, Anion Gap 5, BUN 29 H, Creatinine 2.25 H, Estim Creat Clear Calc 37.58, Est GFR (MDRD) Af Amer 40 L, Est GFR (MDRD) Non-Af 33 L, BUN/Creatinine Ratio 12.9, Glucose 166 H, Calcium 7.2 L, Total Bilirubin 1.00, AST 202 H, ALT 127 H, Alkaline Phosphatase 174 H, Total Protein 4.8 L, Albumin 2.2 L, Globulin 2.6, Albumin/Globulin Ratio 0.8 L 08/25/22 04:10: Ammonia 61.0 H Micro: Microbiology 08/23/22 10:35 Sputum, Induced/Lukens Gram Stain - Final 08/23/22 10:35 Sputum, Induced/Lukens Respiratory Culture - Preliminary Presumptive C albicans 08/22/22 10:50 Blood Culture (Wb) - Anticubital Right Blood Culture - Preliminary No growth in 48 hours. 08/22/22 10:35 Urine Catheter - [place] Urine Culture - Final Culture exhibits no growth. ABG Data ABG results: ABG 08/24/22 16:19 Specimen Type ART Sample Site R Radial pH 7.44 Bicarbonate Actual 20.3 L Total CO2 21 Base Excess -4 L O2 Saturation 99 O2 % 30 ABG pCO2 29.7 L ABG pO2 141 H Adeel Test Positive Respiration Rate 12 O2 Delivery Device Adult Vent Vent Mode AC Tidal Volume 450 POC PEEP 5 Radiography Diagnostic Testing: Radiology Impression Brain MRI 08/24/22 14:12 IMPRESSION: 1. No intracranial mass, hemorrhage, or acute territorial infarct. 2. Bilateral ethmoid and left frontal sinus disease likely chronic Electronically Signed: Sha Lagunas MD at 16:10 EST , Chest X-Ray 08/24/22 14:20 IMPRESSION: Findings suggestive of possible mild vascular congestion. ET tube and NG tube are in satisfactory position. Electronically Signed: Freya Zuñiga MD at 15:24 EST , Physical Exam Const Constitutional Narrative: Sedated HEENT normocephalic and head/scalp atraumatic Eyes Eyes Narrative: Was not opening eyes spontaneously to voice Neck Neck Narrative: ET tube in place Resp Resp Narrative: Mechanically ventilated Cardio regular rate and regular rhythm GI soft to palpation Extremity Extremity Narrative: No edema appreciated Neuro Neuro Narrative: Intubated and sedated Psych Psych Narrative: Unable to cooperate secondary to sedation Assessment & Plan Assessment/Plan (1) Diabetic ketoacidosis: (2) Acute kidney failure: PLAN: Plan #Encephalopathy Considered likely metabolic in etiology Had been significantly agitated and was requiring medication for agitation Over night required intubation and is now intubated and sedated Third been concerned that may be this was in part due to alcohol withdrawal but family reported that he drinks 4-5 times per week TSH was normal Started on Precedex yesterday due to being refractory to Haldol and Geodon however overnight due to hypotension the Precedex was attempted to be weaned and he became very agitated Eventually had respiratory distress and was intubated CT head unremarkable Now intubated and sedated currently on propofol and fentanyl 08/24: Extubated per family preference and became very agitated and confused, was given Ativan and Precedex with minimal improvement. Patient was reintubated per family preference so MRI and EEG can be obtained. MRI unremarkable, EEG nonspecific. Neurology evaluated and recommended to consider alcohol withdrawal and continue empiric antibiotics. 08/25: Remains intubated and sedated, ammonia is elevated so he has been started on lactulose, liver function fluctuating. Presently remains sedated and intubated #Hypotension Attempted to start Precedex overnight but he would become significantly agitated and was not alert Given low BP despite adequate fluid resuscitation he was started on Zosyn. WBC count normalized though could have been reactive, unclear Remains in the ICU Blood culture and urine culture pending Chest x-ray unremarkable 08/24: Seems in part due to sedation his blood pressure was improved when he was awake and agitated, given back on sedation family has been consented for PICC line so levo can be started 08/25: Maintaining adequate MAP on sedation with norepinephrine #Hypernatremia Dextrose started by ICU team, will need to monitor glucose closely and can restart insulin drip if needed 08/25: Slowly improving, is on potassium and dextrose at 75 an hour #Diabetic ketoacidosis in the setting of type 1 diabetes Had been inconsistent taking his insulin prior to admission Had high anion gap metabolic acidosis on admission Was given aggressive fluid resuscitation, electrolyte repletion, and was on an insulin drip Anion gap has been closed and he was transitioned to basal insulin with sliding scale coverage #GONSALO Likely prerenal Has received volume resuscitation Monitor output Initially improved and then slightly worsened today Of note CK that was checked was in fact elevated which may certainly be a factor 08/24: Has trended down, nephrology following 08/25: Has continued to improve with fluids, nephrology following #DVT ppx: Apply SCDs Christina Manuel MD Charges/Coding Visit Charges Inpatient E&M: 66167 Subs Hosp L2
[2022-08-25 07:01] LABS: Bedside Glucose 169 mg/dL (74-106)
--- NOTE | 2022-08-25 07:08 | PN.CC_ITS ---
Assessment & Plan Assessment/Plan (1) Diabetic ketoacidosis: PLAN: Plan RECOMMENDATIONS: 1. Continue assist-control mode mechanical ventilation. Wean FiO2 for saturations greater than 90%. 2. Continue D5W and monitor sodium levels. Okay to reinitiate tube feeds 3. Continue empiric antimicrobials. 4. Continue tube feeds as tolerated. 5. Continue scheduled Seroquel. 6. Continue basal and sliding scale insulin regimen. 7. Continue appropriate ICU prophylaxis. 8. Electrolyte repletion as indicated. See orders IMPRESSIONS: 1. Acute respiratory failure The patient was intubated as a consequence of profound agitation and associated increased work of breathing, with concern for impending respiratory failure. He is doing well from a respiratory perspective on minimal FiO2. Plan to continue the aforementioned, with plans for daily paired spontaneous awakening and breathing trials. Likely hold on extubation until underlying encephalopathy can be controlled. 2. Diabetic ketoacidosis Resolved. Likely secondary to outpatient noncompliance with prescribed medical therapy. The patient presented with significant DKA with profound anion gap metabolic acidosis. He has responded appropriately to aggressive fluid resuscitation, electrolyte repletion and continuous insulin infusion with resolution of his DKA. The patient has been transitioned to basal and sliding scale insulin coverage, which will be continued without change. Outpatient follow-up with an child daycare worker will be necessary. Complicated by patient's reported drinking history. ABG shows adequate oxygenation and ventilation on the current settings. 3. Encephalopathy Most likely metabolic in etiology. Anticipate slow recovery with stabilization of his underlying metabolic derangements. Continue supportive measures as noted above. 4. Acute kidney injury Continues to improve. Most likely prerenal in etiology in the setting of significant intravascular volume depletion due to diabetic ketoacidosis. The patient is being aggressively fluid resuscitated. Continue to monitor urine output. No current indication for renal replacement therapy. 5. Hypernatremia/hypokalemia Improving. Likely secondary to utilization of normal saline during fluid resuscitation efforts. In light of the aforementioned, the patient has been started on D5W. We will need to monitor his blood glucose levels closely and make adjustments to his insulin regimen as well. May attempt diuresis once sodium and chloride are better controlled. 6. Hepatitis Unclear etiology. Patient reportedly does have a regular alcohol intake. Patient's ammonia level is elevated that may be leading/contributing to problem #3. Will initiate lactulose. TIME: 32 minutes of critical care time, independent of procedures, was spent addressing the patient's acute respiratory failure, diabetic ketoacidosis, encephalopathy, acute kidney injury, hypernatremia, review of all data and collaboration with the care team. Subjective Subjective Patient did okay overnight. Patient has been placed on Levophed and had a fever overnight. Agitation is better controlled. No bleeding has been reported. Objective Data Objective Data EEG and MRI results were reviewed. Patient with only mild slowing on EEG and MRI was relatively unremarkable. Patient does have signs of hepatitis on laboratory along with an elevated ammonia. Vital Signs: Vital Signs Temp Pulse Resp BP Pulse Ox O2 Del Method O2 Flow Rate 36.9 C 63 13 99/69 97 Mechanical Ventilator 2 08/25/22 04:00 08/25/22 04:30 08/25/22 04:30 08/25/22 04:30 08/25/22 04:30 08/25/22 04:30 08/24/22 14:45 FiO2 30 08/25/22 04:30 Oxygen Flow Rate (L/min) 2 Oxygen Delivery Method Mechanical Ventilator Weight: 75 kg Body Mass Index (BMI) 22.9 Intake & Output: Intake and Output for Last 24 Hours 08/23/22 08/24/22 08/25/22 23:59 23:59 23:59 Intake Total 4179.42 / 4190.00 4068.92 / 4102.13 1307.81 / 1307.81 Output Total 500 / 500 975 / 1075 950 / 950 Balance 3679.42 / 3690.00 3093.92 / 3027.13 357.81 / 357.81 Lab / Micro Data Attestation: I reviewed the patient's lab results. Lab results narrative: Renal function continues to improve. Result Diagrams: 08/25/22 04:10 08/25/22 04:10 Labs: Laboratory Results - last 24 hr 08/23/22 18:37: POC Glucose 320 H 08/23/22 18:39: POC Glucose 324 H 08/24/22 08:00: Ammonia 54.0 H 08/24/22 12:: POC Glucose 439 H 08/24/22 17:00: WBC 8.0, RBC 3.92 L, Hgb 12.3 L, Hct 35.6 L, MCV 90.8, MCH 31.4, MCHC 34.6, RDW Std Deviation 45.5 H, RDW Coeff of Mika 13.6, Plt Count 82 L, MPV 8.8, Immature Gran % (Auto) 0.500, Neut % (Auto) 74.7 H, Lymph % (Auto) 17.1 L, [place] % (Auto) 7.5, Eos % (Auto) 0.1, Baso % (Auto) 0.1, Absolute Neuts (auto) 5.9, Absolute Lymphs (auto) 1.36, Nucleated RBC % 0, Differential Comment SCANNED 08/24/22 17:00: Sodium 152 H, Potassium 3.5, Chloride 124 H, Carbon Dioxide 23.0, Anion Gap 5, BUN 40 H, Creatinine 2.79 H, Estim Creat Clear Calc 30.30, Est GFR (MDRD) Af Amer 31 L, Est GFR (MDRD) Non-Af 26 L, BUN/Creatinine Ratio 14.3, Glucose 84, Calcium 8.1 L, Magnesium 2.3, Iron 88, Total Bilirubin 0.70, AST 121 H, ALT 93 H, Alkaline Phosphatase 126 H, Lactate Dehydrogenase 402 H, Total Creatine Kinase Cancelled, Total Protein 5.0 L, Albumin 2.6 L, Globulin 2.4, Albumin/Globulin Ratio 1.1 08/24/22 17:00: Total Creatine Kinase 1415 H, Triglycerides 130 08/24/22 17:55: POC Glucose 66 L 08/24/22 20:03: POC Glucose 81 08/25/22 00:47: POC Glucose 56 L 08/25/22 01:21: POC Glucose 154 H 08/25/22 04:10: WBC 7.6, RBC 3.76 L, Hgb 12.2 L, Hct 34.6 L, MCV 92.0, MCH 32.4 H, MCHC 35.3, RDW Std Deviation 45.4 H, RDW Coeff of Mika 13.5, Plt Count 85 L, MPV 9.6, Immature Gran % (Auto) 0.500, Neut % (Auto) 71.5 H, Lymph % (Auto) 20.4, [place] % (Auto) 5.3, Eos % (Auto) 2.2, Baso % (Auto) 0.1, Absolute Neuts (auto) 5.4, Absolute Lymphs (auto) 1.55, Nucleated RBC % 0 08/25/22 04:10: Sodium 147 H, Potassium 3.2 L, Chloride 118 H, Carbon Dioxide 24.0, Anion Gap 5, BUN 29 H, Creatinine 2.25 H, Estim Creat Clear Calc 37.58, Est GFR (MDRD) Af Amer 40 L, Est GFR (MDRD) Non-Af 33 L, BUN/Creatinine Ratio 12.9, Glucose 166 H, Calcium 7.2 L, Total Bilirubin 1.00, AST 202 H, ALT 127 H, Alkaline Phosphatase 174 H, Total Protein 4.8 L, Albumin 2.2 L, Globulin 2.6, Albumin/Globulin Ratio 0.8 L 08/25/22 04:10: Ammonia 61.0 H 08/25/22 06:36: POC Glucose 169 H Micro: Microbiology 08/23/22 10:35 Sputum, Induced/Lukens Gram Stain - Final 08/23/22 10:35 Sputum, Induced/Lukens Respiratory Culture - Preliminary Presumptive C albicans 08/22/22 10:50 Blood Culture (Wb) - Anticubital Right Blood Culture - Preliminary No growth in 48 hours. 08/22/22 10:35 Urine Catheter - [place] Urine Culture - Final Culture exhibits no growth. ABG Data ABG results: ABG 08/24/22 16:19 Specimen Type ART Sample Site R Radial pH 7.44 Bicarbonate Actual 20.3 L Total CO2 21 Base Excess -4 L O2 Saturation 99 O2 % 30 ABG pCO2 29.7 L ABG pO2 141 H Adeel Test Positive Respiration Rate 12 O2 Delivery Device Adult Vent Vent Mode AC Tidal Volume 450 POC PEEP 5 Attestation: I personally reviewed and interpreted this ABG as follows: (Respiratory alkalosis with metabolic acidosis and increased AA gradient) Radiography Diagnostic Testing: Radiology Impression Brain MRI 08/24/22 14:12 IMPRESSION: 1. No intracranial mass, hemorrhage, or acute territorial infarct. 2. Bilateral ethmoid and left frontal sinus disease likely chronic Electronically Signed: Sha Lagunas MD at 16:10 EST Reading Location ID and State: [facility] / [place] , Service support , Chest X-Ray 08/24/22 14:20 IMPRESSION: Findings suggestive of possible mild vascular congestion. ET tube and NG tube are in satisfactory position. Electronically Signed: Freya Zuñiga MD at 15:24 EST , Physical Exam Const no apparent distress General Appearance: intubated and patient mechanically ventilated HEENT normocephalic and head/scalp atraumatic Eyes PERRL, EOMs intact bilaterally and conjunctivae normal Neck supple General: trachea midline Chest inspection of chest normal Resp normal respiratory effort Auscultation: Negative for rales, rhonchi or wheezes Cardio regular rate, regular rhythm, S1 normal heart sound, S2 normal heart sound, no murmurs, no rub and no gallops GI normal to inspection, nondistended, normoactive bowel sounds Extremity no clubbing, cyanosis or edema Skin no rashes or lesions noted Neuro no focal motor deficits Sensorium / Orientation: sedated on vent Psych Mood & Affect: flat affect Charges/Coding Procedures Hospitalists Procedures: 64095 Critial Care 1st Hr
[2022-08-25] MEDS: Chlorhexidine 15 ML PO ×2 (07:40→21:08)
[2022-08-25] MEDS: Lactulose 20 GM/30 ML UDC PO ×2 (07:42→21:08)
[2022-08-25] MEDS: QUEtiapine 25 MG Tablet 50 MG PO ×2 (07:43→21:09)
[2022-08-25] MEDS: Vital AF 1.2 Cal Liquid 1,000 ML 60 ML GT (12:11)
[2022-08-25 12:31] LABS: Bedside Glucose 142 mg/dL (74-106)
[2022-08-25 17:46] LABS: Bedside Glucose 173 mg/dL (74-106)
[2022-08-25] MEDS: Propofol 10MG/Ml 1,000 MG/100 ML Bottle 22.1 MG CONT INF (21:30)
[2022-08-26] VITALS (40 sets, daily range): BP systolic 97–169; BP diastolic 57–94; PULSE 68–109; RESP 12–17; TEMP 37.4–38.3; O2SAT 93–98
[2022-08-26 00:20] LABS: Bedside Glucose 94 mg/dL (74-106)
[2022-08-26] MEDS: Propofol 10MG/Ml 1,000 MG/100 ML Bottle 22.1 MG CONT INF ×6 (01:43→21:50)
[2022-08-26 03:36] LABS: Absolute Neutrophil Count 4.2 X10^3/uL (2.0-7.7); Eosinophil# 0.18 X10^3/uL; Eosinophils% 3.1 % (0-5); Hematocrit 34.9 % (40-54); Lymphocyte % 17.2 % (19-41); Mean Corp Hgb Conc 34.4 g/dL (32-36); Mean Corpuscular Hgb 32.3 pg (27.0-32.0); Mean Corpuscular Volume 93.8 fL (80-94); Mean Platelet Vol. 9.7 fl (6.2-12.0); Monocyte# 0.39 X10^3/uL; Monocyte% 6.7 % (0-10); NRBC Flagged by Analyzer 0 % (0-5); Neutrophil # 4.22 X10^3/uL (2.7-7.7); Neutrophil % 72.7 % (47-70); POSITIVE COUNT YES; Platelet Count 82 K/mm3 (150-450); RBC Distribution Width CV 13.2 % (11.6-14.6); RBC Distribution Width SD 45.7 fl (35.1-43.9); Red Blood Count 3.72 M/mm3 (4.6-6.2); White Blood Count 5.8 K/mm3 (4.4-11.0)
[2022-08-26 04:40] LABS: ALB/GLOB Ratio 0.8 RATIO (0.9-2.4); AST(SGOT) 149 U/L (15-37); Alanine Aminotransfer ALT/SGPT 108 U/L (16-61); Albumin, Serum 2.2 g/dL (3.2-5.0); Alkaline Phosphatase 205 U/L (45-117); Anion Gap 4 (5-15); BUN 20 mg/dL (7-18); BUN/Creat Ratio 12.3 RATIO (10-20); Calcium,Total 7.3 mg/dL (8.5-10.1); Chloride 117 mmol/L (98-107); Creatinine, Serum 1.62 mg/dL (0.70-1.30); EST Glomerular Filtration Rate 48 mL/min (>60); Est Glom Filt Rate - Afr Amer 58 mL/min (>60); Estimated Creatinine Clearance 52.19 ml/min; Globulin 2.8 g/dL (2.2-4.2); Glucose 64 mg/dL (74-106); Potassium 3.6 mmol/L (3.5-5.1); Sodium Level 146 mmol/L (136-145)
--- NOTE | 2022-08-26 04:40 | NURSING ---
Sedation decreased/turned off for awakening trial @ 0400. Pt became agitated with a RASS of +3 and sedation was resumed at previous rate.
[2022-08-26] MEDS: CHLORHEXIDINE GLUC 2% CLOTH 1 EACH TOWELETTE TOPICAL (05:38)
[2022-08-26] MEDS: Insulin Glargine-YFGN 100 UNIT/ML Pen 35 UNIT SC ×2 (05:46→17:25)
[2022-08-26 06:10] LABS: Bedside Glucose 91 mg/dL (74-106)
--- NOTE | 2022-08-26 06:51 | PN.CC_ITS ---
Assessment & Plan Assessment/Plan (1) Diabetic ketoacidosis: PLAN: Plan RECOMMENDATIONS: 1. Continue assist-control mode mechanical ventilation. Wean FiO2 for saturations greater than 90%. 2. Continue D5W and monitor sodium levels. Challenge with diuretics 3. Continue empiric antimicrobials. 4. Continue tube feeds as tolerated. 5. Increase scheduled Seroquel. 6. Continue basal and sliding scale insulin regimen. 7. Continue appropriate ICU prophylaxis. 8. Electrolyte repletion as indicated. See orders IMPRESSIONS: 1. Acute respiratory failure The patient was intubated as a consequence of profound agitation and associated increased work of breathing, with concern for impending respiratory failure. He is doing well from a respiratory perspective on minimal FiO2. Plan to continue the aforementioned, with plans for daily paired spontaneous awakening and breathing trials. Likely hold on extubation until underlying encephalopathy can be controlled. Some concerns for significant positive fluid balance may complicate extubation efforts. We will challenge with Lasix today. 2. Diabetic ketoacidosis Resolved. Likely secondary to outpatient noncompliance with prescribed medical therapy. The patient presented with significant DKA with profound anion gap metabolic acidosis. He has responded appropriately to aggressive fluid resuscitation, electrolyte repletion and continuous insulin infusion with resolution of his DKA. The patient has been transitioned to basal and sliding scale insulin coverage, which will be continued without change. Outpatient follow-up with an substitute bus driver will be necessary. Complicated by patient's reported drinking history. 3. Encephalopathy Most likely metabolic in etiology. Anticipate slow recovery with stabilization of his underlying metabolic derangements. Continue supportive measures as noted above. Ammonia is slightly improved compared to yesterday. 4. Acute kidney injury Continues to improve. Most likely prerenal in etiology in the setting of significant intravascular volume depletion due to diabetic ketoacidosis. Patient is significantly positive over the course of the hospitalization, but has had some issues with hypernatremia and hyperchloremia. Continue to monitor urine output. No current indication for renal replacement therapy. 5. Hypernatremia/hypokalemia Improving. Likely secondary to utilization of normal saline during fluid resuscitation efforts. In light of the aforementioned, the patient has been started on D5W. We will need to monitor his blood glucose levels closely and make adjustments to his insulin regimen as well. We will challenge with Lasix today. Potentially transition from D5W to free water flushes 6. Hepatitis Unclear etiology. Patient reportedly does have a regular alcohol intake. Patient's ammonia level is elevated that may be leading/contributing to problem #3. Will continue lactulose. TIME: 34 minutes of critical care time, independent of procedures, was spent addressing the patient's acute respiratory failure, diabetic ketoacidosis, encephalopathy, acute kidney injury, hypernatremia, review of all data and collaboration with the care team. Subjective Subjective Patient did okay overnight. Patient unable to tolerate SAT today, so SBT was not completed. Patient continues to require Levophed, but requirements of propofol have increased overnight given agitation. Objective Data Objective Data Vital Signs: Vital Signs Temp Pulse Resp BP Pulse Ox O2 Del Method O2 Flow Rate 37.4 C H 69 12 111/71 95 Mechanical Ventilator 2 08/26/22 04:00 08/26/22 06:00 08/26/22 06:00 08/26/22 06:00 08/26/22 06:00 08/26/22 06:00 08/24/22 14:45 FiO2 25 08/26/22 06:00 Oxygen Flow Rate (L/min) 2 Oxygen Delivery Method Mechanical Ventilator Weight: 77 kg Body Mass Index (BMI) 22.9 Intake & Output: Intake and Output for Last 24 Hours 08/24/22 08/25/22 08/26/22 23:59 23:59 23:59 Intake Total 4068.92 / 4102.13 4208.97 / 4392.97 648.84 / 648.84 Output Total 975 / 1075 1700 / 2100 1200 / 1200 Balance 3093.92 / 3027.13 2508.97 / 2292.97 -551.16 / -551.16 Lab / Micro Data Attestation: I reviewed the patient's lab results. Result Diagrams: 08/26/22 03:20 08/26/22 03:20 Labs: Laboratory Results - last 24 hr 08/25/22 04:10: Ammonia 68.0 H 08/25/22 06:36: POC Glucose 169 H 08/25/22 12:12: POC Glucose 142 H 08/25/22 17:15: POC Glucose 173 H 08/26/22 00:01: POC Glucose 94 08/26/22 03:20: WBC 5.8, RBC 3.72 L, Hgb 12.0 L, Hct 34.9 L, MCV 93.8, MCH 32.3 H, MCHC 34.4, RDW Std Deviation 45.7 H, RDW Coeff of Mika 13.2, Plt Count 82 L, MPV 9.7, Immature Gran % (Auto) 0.300, Neut % (Auto) 72.7 H, Lymph % (Auto) 17.2 L, [place] % (Auto) 6.7, Eos % (Auto) 3.1, Baso % (Auto) 0.0, Absolute Neuts (auto) 4.2, Absolute Lymphs (auto) 1.00, Nucleated RBC % 0 08/26/22 03:20: Sodium 146 H, Potassium 3.6, Chloride 117 H, Carbon Dioxide 25.0, Anion Gap 4 L, BUN 20 H, Creatinine 1.62 H, Estim Creat Clear Calc 52.19, Est GFR (MDRD) Af Amer 58 L, Est GFR (MDRD) Non-Af 48 L, BUN/Creatinine Ratio 12.3, Glucose 64 L, Calcium 7.3 L, Total Bilirubin 0.90, AST 149 H, ALT 108 H, Alkaline Phosphatase 205 H, Total Protein 5.0 L, Albumin 2.2 L, Globulin 2.8, Albumin/Globulin Ratio 0.8 L 08/26/22 03:20: Ammonia 48.0 H 08/26/22 05:45: POC Glucose 91 Micro: Microbiology 08/23/22 10:35 Sputum, Induced/Lukens Gram Stain - Final 08/23/22 10:35 Sputum, Induced/Lukens Respiratory Culture - Preliminary 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 08/22/22 10:35 Urine Catheter - Hogue Urine Culture - Final Culture exhibits no growth. Radiography Diagnostic Testing: Radiology Impression Echocardiogram 08/24/22 12:49 Interpretation Summary Left ventricular systolic function is lower limits of normal. The estimated ejection fraction is 50 %. Trivial mitral valve insufficiency. Trivial tricuspid valve insufficiency. Mild diffuse aortic valve thickening. Mild focal aortic valve calcification. Borderline enlarged aortic root. Right ventricular systolic pressure estimated to be 30 mmHg. No evidence for diastolic dysfunction. Ordering Physician: Carlito Hall Referring Physician: Jolly Cardenas Performed By: Radha Bae, ANN, RVT Physical Exam Const no apparent distress Constitutional Narrative: Anasarca noted General Appearance: intubated and patient mechanically ventilated HEENT normocephalic and head/scalp atraumatic Mouth: endotracheal tube in place and OG tube in place Eyes PERRL, EOMs intact bilaterally and conjunctivae normal Neck supple General: trachea midline Chest inspection of chest normal Resp normal respiratory effort Auscultation: Negative for rales, rhonchi or wheezes Cardio regular rate, regular rhythm, S1 normal heart sound, S2 normal heart sound, no murmurs, no rub and no gallops GI normal to inspection, nondistended, normoactive bowel sounds Extremity no clubbing, cyanosis or edema Skin no rashes or lesions noted Neuro no focal motor deficits Sensorium / Orientation: sedated on vent Psych Mood & Affect: flat affect Charges/Coding Procedures Hospitalists Procedures: 77495 Critial Care 1st Hr
--- NOTE | 2022-08-26 07:19 | PN.HOSP_ITS ---
Subjective Subjective Remains intubated, presently on fentanyl and propofol but waking up and straining at restraints, not following commands, to recieve prop bolus and seroquel dose Objective Data Objective Data Vital Signs: Vital Signs Temp Pulse Resp BP Pulse Ox O2 Del Method O2 Flow Rate 99.3 F H 69 13 111/71 97 Mechanical Ventilator 2 08/26/22 04:00 08/26/22 06:55 08/26/22 06:55 08/26/22 06:00 08/26/22 06:55 08/26/22 06:00 08/24/22 14:45 FiO2 25 08/26/22 06:55 Oxygen Flow Rate (L/min) 2 Oxygen Delivery Method Mechanical Ventilator Weight: 77 kg Body Mass Index (BMI) 22.9 Intake & Output: Intake and Output for Last 24 Hours 08/24/22 08/25/22 08/26/22 23:59 23:59 23:59 Intake Total 4068.92 / 4102.13 4208.97 / 4392.97 648.84 / 648.84 Output Total 975 / 1075 1700 / 2100 1200 / 1200 Balance 3093.92 / 3027.13 2508.97 / 2292.97 -551.16 / -551.16 Lab / Micro Data Result Diagrams: 08/26/22 03:20 08/26/22 03:20 Labs: Laboratory Results - last 24 hr 08/25/22 04:10: Ammonia 68.0 H 08/25/22 12:12: POC Glucose 142 H 08/25/22 17:15: POC Glucose 173 H 08/26/22 00:01: POC Glucose 94 08/26/22 03:20: WBC 5.8, RBC 3.72 L, Hgb 12.0 L, Hct 34.9 L, MCV 93.8, MCH 32.3 H, MCHC 34.4, RDW Std Deviation 45.7 H, RDW Coeff of Mika 13.2, Plt Count 82 L, MPV 9.7, Immature Gran % (Auto) 0.300, Neut % (Auto) 72.7 H, Lymph % (Auto) 17.2 L, [place] % (Auto) 6.7, Eos % (Auto) 3.1, Baso % (Auto) 0.0, Absolute Neuts (auto) 4.2, Absolute Lymphs (auto) 1.00, Nucleated RBC % 0 08/26/22 03:20: Sodium 146 H, Potassium 3.6, Chloride 117 H, Carbon Dioxide 25.0, Anion Gap 4 L, BUN 20 H, Creatinine 1.62 H, Estim Creat Clear Calc 52.19, Est GFR (MDRD) Af Amer 58 L, Est GFR (MDRD) Non-Af 48 L, BUN/Creatinine Ratio 12.3, Glucose 64 L, Calcium 7.3 L, Total Bilirubin 0.90, AST 149 H, ALT 108 H, Alkaline Phosphatase 205 H, Total Protein 5.0 L, Albumin 2.2 L, Globulin 2.8, Albumin/Globulin Ratio 0.8 L 08/26/22 03:20: Ammonia 48.0 H 08/26/22 05:45: POC Glucose 91 Micro: Microbiology 08/23/22 10:35 Sputum, Induced/Lukens Gram Stain - Final 08/23/22 10:35 Sputum, Induced/Lukens Respiratory Culture - Preliminary 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 08/22/22 10:35 Urine Catheter - [place] Urine Culture - Final Culture exhibits no growth. Radiography Diagnostic Testing: Radiology Impression Echocardiogram 08/24/22 12:49 Interpretation Summary Left ventricular systolic function is lower limits of normal. The estimated ejection fraction is 50 %. Trivial mitral valve insufficiency. Trivial tricuspid valve insufficiency. Mild diffuse aortic valve thickening. Mild focal aortic valve calcification. Borderline enlarged aortic root. Right ventricular systolic pressure estimated to be 30 mmHg. No evidence for diastolic dysfunction. Ordering Physician: Carlito Hall Referring Physician: Jolly Cardenas Performed By: Radha Bae, ANN, RVT Physical Exam Const Constitutional Narrative: Wake but not following commands HEENT normocephalic and head/scalp atraumatic Eyes Eyes Narrative: Eyes open, not purposeful Neck Neck Narrative: ET tube in place Resp Resp Narrative: Mechanically ventilated Cardio regular rate and regular rhythm GI soft to palpation Extremity Extremity Narrative: Moving upper extremities in bed Neuro Neuro Narrative: Intubated and waking up straining against restraints but not purposeful and not following commands Psych Psych Narrative: Not following commands Assessment & Plan Assessment/Plan (1) Diabetic ketoacidosis: (2) Acute kidney failure: PLAN: Plan #Encephalopathy Considered likely metabolic in etiology Had been significantly agitated and was requiring medication for agitation Over night required intubation and is now intubated and sedated Third been concerned that may be this was in part due to alcohol withdrawal but family reported that he drinks 4-5 times per week TSH was normal Started on Precedex yesterday due to being refractory to Haldol and Geodon however overnight due to hypotension the Precedex was attempted to be weaned and he became very agitated Eventually had respiratory distress and was intubated CT head unremarkable Now intubated and sedated currently on propofol and fentanyl 08/24: Extubated per family preference and became very agitated and confused, was given Ativan and Precedex with minimal improvement. Patient was reintubated per family preference so MRI and EEG can be obtained. MRI unremarkable, EEG nonspecific. Neurology evaluated and recommended to consider alcohol withdrawal and continue empiric antibiotics. 08/25: Remains intubated and sedated, ammonia is elevated so he has been started on lactulose, liver function fluctuating. Presently remains sedated and intubated 08/26: Waking up screening against restraints but not following commands and not purposeful, not tracking with eyes. On lactulose ammonia decreasing. Seroquel raised #Hypotension Attempted to start Precedex overnight but he would become significantly agitated and was not alert Given low BP despite adequate fluid resuscitation he was started on Zosyn. WBC count normalized though could have been reactive, unclear Remains in the ICU Blood culture and urine culture pending Chest x-ray unremarkable 08/24: Seems in part due to sedation his blood pressure was improved when he was awake and agitated, given back on sedation family has been consented for PICC line so levo can be started 08/25: Maintaining adequate MAP on sedation with norepinephrine 08/26: Remains on small dose of norepinephrine but blood pressure improving. Somewhat overloaded so will be challenged with diuretics. Remains on Zosyn #Hypernatremia Dextrose started by ICU team, will need to monitor glucose closely and can restart insulin drip if needed 08/25: Slowly improving, is on potassium and dextrose at 75 an hour 08/26: Continues to improve #Transaminitis Likely secondary to systemic illness and hypotension Continuing to improve Did have elevated ammonia and is now on lactulose, slightly improved #Diabetic ketoacidosis in the setting of type 1 diabetes Had been inconsistent taking his insulin prior to admission Had high anion gap metabolic acidosis on admission Was given aggressive fluid resuscitation, electrolyte repletion, and was on an insulin drip Anion gap has been closed and he was transitioned to basal insulin with sliding scale coverage #GONSALO Likely prerenal Has received volume resuscitation Monitor output Initially improved and then slightly worsened today Of note CK that was checked was in fact elevated which may certainly be a factor 08/24: Has trended down, nephrology following 08/25: Has continued to improve with fluids, nephrology following 08/26: Continues to improve #DVT ppx: Apply SCDs Christina Manuel MD Charges/Coding Visit Charges Inpatient E&M: 16696 Subs Hosp L2
[2022-08-26] MEDS: Vital AF 1.2 Cal Liquid 1,000 ML 60 ML GT (07:55)
[2022-08-26] MEDS: Furosemide 40 MG/4 ML Vial IV ×2 (07:55→15:15)
[2022-08-26] MEDS: Chlorhexidine 15 ML PO ×2 (07:56→20:25)
[2022-08-26] MEDS: 0.9% Saline Lock 10 ML Syringe IV ×2 (07:56→15:15)
[2022-08-26] MEDS: QUEtiapine 100 MG Tablet PO ×2 (08:12→20:27)
[2022-08-26] MEDS: Lactulose 20 GM/30 ML UDC PO ×2 (08:12→20:26)
--- NOTE | 2022-08-26 09:45 | PN.RENAL_ITS ---
Subjective Subjective Remains intubated Urine output is excellent Solute clearance is improving Did receive IV Lasix this morning with good response Objective Data Objective Data Vital Signs: Vital Signs Temp Pulse Resp BP Pulse Ox O2 Del Method O2 Flow Rate 99.8 F H 106 H 15 118/70 95 Mechanical Ventilator 2 08/26/22 08:00 08/26/22 08:00 08/26/22 08:00 08/26/22 08:45 08/26/22 08:00 08/26/22 08:00 08/24/22 14:45 FiO2 25 08/26/22 08:00 Oxygen Flow Rate (L/min) 2 Oxygen Delivery Method Mechanical Ventilator Weight: 77 kg Body Mass Index (BMI) 22.9 Intake & Output: Intake and Output for Last 24 Hours 08/24/22 08/25/22 08/26/22 23:59 23:59 23:59 Intake Total 4068.92 / 4102.13 4208.97 / 4392.97 2494.74 / 2494.74 Output Total 975 / 1075 1700 / 2100 1200 / 1200 Balance 3093.92 / 3027.13 2508.97 / 2292.97 1294.74 / 1294.74 Lab / Micro Data Result Diagrams: 08/26/22 03:20 08/26/22 03:20 Labs: Laboratory Results - last 24 hr 08/25/22 12:12: POC Glucose 142 H 08/25/22 17:15: POC Glucose 173 H 08/26/22 00:01: POC Glucose 94 08/26/22 03:20: WBC 5.8, RBC 3.72 L, Hgb 12.0 L, Hct 34.9 L, MCV 93.8, MCH 32.3 H, MCHC 34.4, RDW Std Deviation 45.7 H, RDW Coeff of Mika 13.2, Plt Count 82 L, MPV 9.7, Immature Gran % (Auto) 0.300, Neut % (Auto) 72.7 H, Lymph % (Auto) 17.2 L, [place] % (Auto) 6.7, Eos % (Auto) 3.1, Baso % (Auto) 0.0, Absolute Neuts (auto) 4.2, Absolute Lymphs (auto) 1.00, Nucleated RBC % 0 08/26/22 03:20: Sodium 146 H, Potassium 3.6, Chloride 117 H, Carbon Dioxide 25.0, Anion Gap 4 L, BUN 20 H, Creatinine 1.62 H, Estim Creat Clear Calc 52.19, Est GFR (MDRD) Af Amer 58 L, Est GFR (MDRD) Non-Af 48 L, BUN/Creatinine Ratio 12.3, Glucose 64 L, Calcium 7.3 L, Total Bilirubin 0.90, AST 149 H, ALT 108 H, Alkaline Phosphatase 205 H, Total Protein 5.0 L, Albumin 2.2 L, Globulin 2.8, Albumin/Globulin Ratio 0.8 L 08/26/22 03:20: Ammonia 48.0 H 08/26/22 05:45: POC Glucose 91 Micro: Microbiology 08/23/22 10:35 Sputum, Induced/Lukens Gram Stain - Final 08/23/22 10:35 Sputum, Induced/Lukens Respiratory Culture - Final Presumptive C albicans Klebsiella oxytoca 08/22/22 10:50 Blood Culture (Wb) - Anticubital Right Blood Culture - Preliminary No growth in 48 hours. 08/22/22 10:35 Urine Catheter - [place] Urine Culture - Final Culture exhibits no growth. Radiography Diagnostic Testing: Radiology Impression Echocardiogram 08/24/22 12:49 Interpretation Summary Left ventricular systolic function is lower limits of normal. The estimated ejection fraction is 50 %. Trivial mitral valve insufficiency. Trivial tricuspid valve insufficiency. Mild diffuse aortic valve thickening. Mild focal aortic valve calcification. Borderline enlarged aortic root. Right ventricular systolic pressure estimated to be 30 mmHg. No evidence for diastolic dysfunction. Ordering Physician: Carlito Hall Referring Physician: Jolly Cardenas Performed By: Radha Bae, ANN, RVT Physical Exam Narrative On mechanical ventilation. More agitated S1, S2, RRR Lung coarse breath sound anteriorly Abdomen is soft No edema Indwelling Hogue catheter with clear urine in bag Assessment & Plan Assessment/Plan (1) Diabetic ketoacidosis: (2) Acute kidney failure: (3) Hypernatremia: (4) Acute respiratory failure: PLAN: Plan For renal insufficiency, it is unknown if this is acute kidney injury versus CKD. According to patient's , patient had lab work drawn at least 3 months ago and routinely by PCP. We will attempt to obtain labs to determine baseline kidney function. On presentation to the emergency room, creatinine was 5.06 mg/dL on August 21 and today SCr improved to 4.00 mg/dL. He is nonoliguric. 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 Chest x-ray reviewed, no acute cardiopulmonary disease, no pulmonary edema. GONSALO likely prerenal which may have progressed to ATN from DKA, Hypotension. Patient's UA positive glucose 1000, protein 100, occult blood 150, negative leukocyte and no RBCs. We will o btain renal ultrasound to rule out obstructive process contributing to GONSALO however patient does have indwelling Hogue with good urine output at the present time. Patient developed agitation yesterday with concern for his respiratory status and was subsequently intubated. His CT did not show any acute intracranial abnormality. Continue on IVF as ordered. BPs are improving, not on pressor support at this time. According to patient's , no new medications, patient was not taking any diuretics, GRADY or ARB before hospitalization. Further orders forthcoming as hospitalization evolves. Thank you for allowing us participate in the care of Mr. Paris. 08/26 -Overall doing much better from renal standpoint, solute clearance is improved serum creatinine of 1.6 mg/dL -Mild hyponatremia at 146 mmol/L -Excellent urinary output -Suspect some auto diuresing renal function improved -No need for renal placement therapy -Ongoing supportive care per ICU team Thank you please call [phone] with any concerns.
[2022-08-26] MEDS: Potassium Chloride Oral Soln 20 MEQ/15 ML UDC 40 MEQ PO (10:13)
[2022-08-26 12:40] LABS: Bedside Glucose 149 mg/dL (74-106)
[2022-08-26] MEDS: Insulin Lispro 100 UNIT/ML INSULN.PEN SC (17:25)
[2022-08-26 17:45] LABS: Bedside Glucose 169 mg/dL (74-106)
[2022-08-26] MEDS: Acetaminophen 650 MG/20 ML UDC GT (20:34)
[2022-08-26 23:31] LABS: Bedside Glucose 143 mg/dL (74-106)
[2022-08-27] VITALS (33 sets, daily range): BP systolic 84–148; BP diastolic 61–98; PULSE 68–121; RESP 12–18; TEMP 37.3–37.9; O2SAT 91–98
[2022-08-27] MEDS: Propofol 10MG/Ml 1,000 MG/100 ML Bottle 22.1 MG CONT INF ×2 (01:10→04:16)
[2022-08-27 03:31] LABS: Absolute Lymphocyte Count 0.65 X10^3/uL (0.83-4.51); Absolute Neutrophil Count 3.4 X10^3/uL (2.0-7.7); Basophil# 0.01 X10^3/uL; Basophil% 0.2 % (0-1); Eosinophil# 0.24 X10^3/uL; Eosinophils% 4.9 % (0-5); Hematocrit 35.7 % (40-54); Hemoglobin 11.9 g/dL (13.0-16.5); Lymphocyte # 0.65 X10^3/ul (0.83-4.51); Lymphocyte % 13.4 % (19-41); Mean Corp Hgb Conc 33.3 g/dL (32-36); Mean Corpuscular Hgb 31.4 pg (27.0-32.0); Mean Corpuscular Volume 94.2 fL (80-94); Mean Platelet Vol. 9.6 fl (6.2-12.0); Monocyte# 0.57 X10^3/uL; Monocyte% 11.7 % (0-10); NRBC Flagged by Analyzer 0 % (0-5); Neutrophil # 3.35 X10^3/uL (2.7-7.7); Platelet Count 123 K/mm3 (150-450); RBC Distribution Width CV 12.8 % (11.6-14.6); RBC Distribution Width SD 44.4 fl (35.1-43.9); Red Blood Count 3.79 M/mm3 (4.6-6.2); White Blood Count 4.9 K/mm3 (4.4-11.0)
[2022-08-27 03:54] LABS: ALB/GLOB Ratio 0.7 RATIO (0.9-2.4); AST(SGOT) 98 U/L (15-37); Alanine Aminotransfer ALT/SGPT 98 U/L (16-61); Albumin, Serum 2.2 g/dL (3.2-5.0); Alkaline Phosphatase 263 U/L (45-117); Anion Gap 5 (5-15); BUN 20 mg/dL (7-18); BUN/Creat Ratio 11.9 RATIO (10-20); Chloride 107 mmol/L (98-107); Creatinine, Serum 1.68 mg/dL (0.70-1.30); EST Glomerular Filtration Rate 46 mL/min (>60); Est Glom Filt Rate - Afr Amer 56 mL/min (>60); Estimated Creatinine Clearance 50.33 ml/min; Globulin 3.1 g/dL (2.2-4.2); Glucose 205 mg/dL (74-106); Potassium 3.8 mmol/L (3.5-5.1); Protein, Total 5.3 g/dL (6.4-8.2); Sodium Level 142 mmol/L (136-145)
[2022-08-27] MEDS: Vital AF 1.2 Cal Liquid 1,000 ML 60 ML GT (04:15)
[2022-08-27] MEDS: Insulin Lispro 100 UNIT/ML INSULN.PEN SC ×2 (05:24→11:55)
[2022-08-27] MEDS: Insulin Glargine-YFGN 100 UNIT/ML Pen 35 UNIT SC ×2 (05:25→17:52)
[2022-08-27] MEDS: TITRATION PARAMETER CHANGE 1 EACH IV (06:46)
--- NOTE | 2022-08-27 06:50 | PN.CC_ITS ---
Assessment & Plan Assessment/Plan (1) Diabetic ketoacidosis: PLAN: Plan RECOMMENDATIONS: 1. Continue assist-control mode mechanical ventilation. Wean FiO2 for saturations greater than 90%. 2. Challenge with diuretics 3. Complete 7 days of antimicrobials 4. Continue tube feeds as tolerated. Continue lactulose 5. Increase scheduled Seroquel. 6. Continue basal and sliding scale insulin regimen. 7. Continue appropriate ICU prophylaxis. 8. Electrolyte repletion as indicated. See orders IMPRESSIONS: 1. Acute respiratory failure The patient was intubated as a consequence of profound agitation and associated increased work of breathing, with concern for impending respiratory failure. He is doing well from a respiratory perspective on minimal FiO2. Plan to continue the aforementioned, with plans for daily paired spontaneous awakening and breathing trials. Likely hold on extubation until underlying en cephalopathy can be controlled. Some concerns for significant positive fluid balance may complicate extubation efforts. We will challenge with scheduled Lasix today. 2. Diabetic ketoacidosis Resolved. Likely secondary to outpatient noncompliance with prescribed medical therapy. The patient presented with significant DKA with profound anion gap metabolic acidosis. He has responded appropriately to aggressive fluid resuscitation, electrolyte repletion and continuous insulin infusion with resolution of his DKA. The patient has been transitioned to basal and sliding scale insulin coverage, which will be continued without change. Outpatient follow-up with an audit specialist will be necessary. Complicated by patient's reported drinking history. Patient is significantly positive over the course of the hospitalization. 3. Encephalopathy Most likely metabolic in etiology. Anticipate slow recovery with stabilization of his underlying metabolic derangements. Continue supportive measures as noted above. Ammonia is slightly improved compared to yesterday. Continue lactulose 4. Acute kidney injury Appears to be stabilizing. Most likely prerenal in etiology in the setting of significant intravascular volume depletion due to diabetic ketoacidosis. Patient is significantly positive over the course of the hospitalization, but has had some issues with hypernatremia and hyperchloremia. Continue to monitor urine output. No current indication for renal replacement therapy. 5. Hypernatremia/hypokalemia Resolved. Likely secondary to utilization of normal saline during fluid resuscitation efforts. In light of the aforementioned, the patient has received D5W. We will need to monitor his blood glucose levels closely and make adjustments to his insulin regimen as well. We will attempt to adjust fluid balance 6. Hepatitis Unclear etiology. Patient reportedly does have a regular alcohol intake. Patient's ammonia level is elevated that may be leading/contributing to problem #3. Will continue lactulose. TIME: 33 minutes of critical care time, independent of procedures, was spent addressing the patient's acute respiratory failure, diabetic ketoacidosis, encephalopathy, acute kidney injury, hypernatremia, review of all data and collaboration with the care team. Subjective Subjective Patient did okay overnight. Patient did have 3 bowel movements. No pressors were required. Patient has been on propofol and fentanyl, but became significantly agitated this morning with spontaneous awakening trial. No fevers noted overnight. Objective Data Objective Data Vital Signs: Vital Signs Temp Pulse Resp BP Pulse Ox O2 Del Method O2 Flow Rate 37.9 C H 73 14 113/70 94 Mechanical Ventilator 2 08/27/22 04:00 08/27/22 06:00 08/27/22 06:00 08/27/22 06:00 08/27/22 06:00 08/27/22 06:00 08/24/22 14:45 FiO2 25 08/27/22 06:00 Oxygen Flow Rate (L/min) 2 Oxygen Delivery Method Mechanical Ventilator Weight: 72.5 kg Body Mass Index (BMI) 22.9 Intake & Output: Intake and Output for Last 24 Hours 08/25/22 08/26/22 08/27/22 23:59 23:59 23:59 Intake Total 4208.97 / 4392.97 6097.88 / 6289.98 1789.70 / 1789.70 Output Total 1700 / 2100 6350 / 6350 400 / 400 Balance 2508.97 / 2292.97 -252.12 / -60.02 1389.70 / 1389.70 Lab / Micro Data Attestation: I reviewed the patient's lab results. Result Diagrams: 08/27/22 03:10 08/27/22 03:10 Labs: Laboratory Results - last 24 hr 08/26/22 12:20: POC Glucose 149 H 08/26/22 17:20: POC Glucose 169 H 08/26/22 23:10: POC Glucose 143 H 08/27/22 03:10: WBC 4.9, RBC 3.79 L, Hgb 11.9 L, Hct 35.7 L, MCV 94.2 H, MCH 31.4, MCHC 33.3, RDW Std Deviation 44.4 H, RDW Coeff of Mika 12.8, Plt Count 123 L, MPV 9.6, Immature Gran % (Auto) 0.800, Neut % (Auto) 69.0, Lymph % (Auto) 13.4 L, [place] % (Auto) 11.7 H, Eos % (Auto) 4.9, Baso % (Auto) 0.2, Absolute Neuts (auto) 3.4, Absolute Lymphs (auto) 0.65 L, Nucleated RBC % 0 08/27/22 03:10: Sodium 142, Potassium 3.8, Chloride 107, Carbon Dioxide 30.0, Anion Gap 5, BUN 20 H, Creatinine 1.68 H, Estim Creat Clear Calc 50.33, Est GFR (MDRD) Af Amer 56 L, Est GFR (MDRD) Non-Af 46 L, BUN/Creatinine Ratio 11.9, Glucose 205 H, Calcium 8.0 L, Total Bilirubin 0.50, AST 98 H, ALT 98 H, Alkaline Phosphatase 263 H, Total Protein 5.3 L, Albumin 2.2 L, Globulin 3.1, Albumin/Globulin Ratio 0.7 L 08/27/22 03:10: Ammonia 43.0 H Micro: Microbiology 08/23/22 10:35 Sputum, Induced/Lukens Gram Stain - Final 08/23/22 10:35 Sputum, Induced/Lukens Respiratory Culture - Final Presumptive C albicans Klebsiella oxytoca 08/22/22 10:50 Blood Culture (Wb) - Anticubital Right Blood Culture - Preliminary No growth in 48 hours. 08/22/22 10:35 Urine Catheter - [place] Urine Culture - Final Culture exhibits no growth. Physical Exam Const no apparent distress Constitutional Narrative: Anasarca noted General Appearance: intubated and patient mechanically ventilated HEENT normocephalic and head/scalp atraumatic Mouth: endotracheal tube in place and OG tube in place Eyes PERRL, EOMs intact bilaterally and conjunctivae normal Neck supple General: trachea midline Chest inspection of chest normal Resp normal respiratory effort Resp Narrative: Good vent synchrony Auscultation: diminished lung sounds; Negative for rales, rhonchi or wheezes Cardio regular rate, regular rhythm, S1 normal heart sound, S2 normal heart sound, no murmurs, no rub and no gallops GI normal to inspection, nondistended, normoactive bowel sounds Extremity no clubbing, cyanosis or edema Skin no rashes or lesions noted Neuro no focal motor deficits Sensorium / Orientation: sedated on vent Psych Mood & Affect: flat affect Charges/Coding Procedures Hospitalists Procedures: 83565 Critial Care 1st Hr
--- NOTE | 2022-08-27 07:20 | PCM.PN.HOSP ---
Subjective Subjective Follow-up on acute metabolic encephalopathy/acute DKA/GONSALO/electrolyte imbalance: Patient was seen and examined. He remains in debated, on mechanical ventilator, PEEP of 5, FiO2 25%. Patient failed his spontaneous awakening trial this morning on account of agitation. Objective Data Objective Data Vital Signs: Vital Signs Temp Pulse Resp BP Pulse Ox O2 Del Method O2 Flow Rate 100.2 F H 73 12 113/66 94 Mechanical Ventilator 2 08/27/22 04:00 08/27/22 07:00 08/27/22 07:00 08/27/22 07:00 08/27/22 07:00 08/27/22 07:00 08/24/22 14:45 FiO2 25 08/27/22 07:00 Oxygen Flow Rate (L/min) 2 Oxygen Delivery Method Mechanical Ventilator Weight: 72.5 kg Body Mass Index (BMI) 22.9 Intake & Output: Intake and Output for Last 24 Hours 08/25/22 08/26/22 08/27/22 23:59 23:59 23:59 Intake Total 4208.97 / 4392.97 6097.88 / 6289.98 1831.80 / 1831.80 Output Total 1700 / 2100 6350 / 6350 400 / 400 Balance 2508.97 / 2292.97 -252.12 / -60.02 1431.80 / 1431.80 Lab / Micro Data Result Diagrams: 08/27/22 03:10 08/27/22 03:10 Labs: Laboratory Results - last 24 hr 08/26/22 12:20: POC Glucose 149 H 08/26/22 17:20: POC Glucose 169 H 08/26/22 23:10: POC Glucose 143 H 08/27/22 03:10: WBC 4.9, RBC 3.79 L, Hgb 11.9 L, Hct 35.7 L, MCV 94.2 H, MCH 31.4, MCHC 33.3, RDW Std Deviation 44.4 H, RDW Coeff of Mika 12.8, Plt Count 123 L, MPV 9.6, Immature Gran % (Auto) 0.800, Neut % (Auto) 69.0, Lymph % (Auto) 13.4 L, [place] % (Auto) 11.7 H, Eos % (Auto) 4.9, Baso % (Auto) 0.2, Absolute Neuts (auto) 3.4, Absolute Lymphs (auto) 0.65 L, Nucleated RBC % 0 08/27/22 03:10: Sodium 142, Potassium 3.8, Chloride 107, Carbon Dioxide 30.0, Anion Gap 5, BUN 20 H, Creatinine 1.68 H, Estim Creat Clear Calc 50.33, Est GFR (MDRD) Af Amer 56 L, Est GFR (MDRD) Non-Af 46 L, BUN/Creatinine Ratio 11.9, Glucose 205 H, Calcium 8.0 L, Total Bilirubin 0.50, AST 98 H, ALT 98 H, Alkaline Phosphatase 263 H, Total Protein 5.3 L, Albumin 2.2 L, Globulin 3.1, Albumin/Globulin Ratio 0.7 L 08/27/22 03:10: Ammonia 43.0 H Micro: Microbiology 08/23/22 10:35 Sputum, Induced/Lukens Gram Stain - Final 08/23/22 10:35 Sputum, Induced/Lukens Respiratory Culture - Final Presumptive C albicans Klebsiella oxytoca 08/22/22 10:50 Blood Culture (Wb) - Anticubital Right Blood Culture - Preliminary No growth in 48 hours. 08/22/22 10:35 Urine Catheter - [place] Urine Culture - Final Culture exhibits no growth. Physical Exam Narrative Physical exam: General: Sedated, intubated, mechanical ventilator HEENT: Atraumatic Oral: Moist Mucosa Neck: Supple Lungs: Diminished to auscultation Cardiovascular: HS I+II, regular, no murmurs Abdomen: Bowel Sounds Present, Soft, Non Tender Extremities: Bilateral leg edema +3 Skin: No rashes, No breakdown Neurological: Grossly intact Psych/Mental Status: Appropriate Assessment & Plan Assessment/Plan (1) Acute respiratory failure: (2) Diabetic ketoacidosis: (3) Hypernatremia: (4) Mental status alteration: PLAN: Plan 1. Acute encephalopathy, probable acute hepatic encephalopathy Status post intubation on admission, extubated per family request, reintubated again to obtain further imaging MRI brain as well as EEG unremarkable. Liver ultrasound showed hepatomegaly, gallbladder wall thickening with pericholecystic fluid, negative Serna sign, diffuse ascites. Ammonia improved to 43 today from 68, LFTs are also improving Continue lactulose, trend ammonia 2. Acute respiratory failure, unclear etiology, probable acute Klebsiella pneumonia Sputum cultures growing Klebsiella. Blood and urine cultures have been negative for 48 hours. Continue on IV Zosyn 3. Shock, unclear etiology, probably septic versus medication side effect Patient was on Levophed transiently, currently off it Blood and urine cultures have been negative for 48 hours Continue on IV Zosyn Continue to monitor vitals 4. Acute DKA, in a known type II DM patient. DKA is resolved Blood sugars are uncontrolled over the last 24 hours. HbA1c is 11.8 Continue with Lantus 35 units BID, insulin sliding scale with Q6h blood glucose checks 5. GONSALO, likely prerenal secondary to dehydration, unclear previous baseline Creatinine today is 1.68 from 5.06 on admission Renal ultrasound is unremarkable for obstructive uropathy Nephrology following, continue to trend 6. Hypernatremia, improved, sodium is 142 today from 147 Will continue to trend 7. Hypokalemia, resolved, continue to trend 8. Acute fluid overload, patient is positive for 21 L of fluid, responsive to IV Lasix, will continue to trend 9. Thrombocytopenia, unclear etiology, improving, platelet count is 123 today from 82 We will continue to trend 10. DVT PPx- SCDs on account of transient thrombocytopenia?seems to be recovering Charges/Coding Addendum Addendum: Total time spent: 50 minutes of which more > 50% was spent in reviewing patient's chart, going over his laboratory investigations, imaging, talking to nursing, auxillary staff, ground operations crew member and to his and daughter at the bedside. Visit Charges Inpatient E&M: [id number] [facility]osp L3
[2022-08-27] MEDS: Potassium Chloride Oral Soln 20 MEQ/15 ML UDC 40 MEQ PO (07:59)
[2022-08-27] MEDS: QUEtiapine 100 MG Tablet 150 MG PO ×2 (08:00→20:17)
[2022-08-27] MEDS: Furosemide 40 MG/4 ML Vial IV ×2 (08:17→17:52)
[2022-08-27] MEDS: Chlorhexidine 15 ML PO ×2 (08:25→21:12)
--- NOTE | 2022-08-27 08:32 | RAD_ITS ---
STUDY: X-RAY - ABDOMEN/PELVIS REASON FOR EXAM: Male, 52 years old. OG Placement. TECHNIQUE: Single AP view of the abdomen / pelvis. COMPARISON: None. FINDINGS: Placement of orogastric tube with tip projected over the right upper quadrant near the duodenal bulb. There is an unremarkable bowel gas pattern. There is no demonstrated free abdominal air. The visualized liver, spleen and kidneys are grossly normal in size and morphology. Normal soft tissue structures. Normal visualized osseous structures. RAD/Abdomen Single View (Portable) IMPRESSION: Tip of orogastric tube projected over the region of the duodenal bulb. Electronically Signed: Se Lynn, at 9:15 EST ,
[2022-08-27] MEDS: Propofol 10MG/Ml 1,000 MG/100 ML Bottle 21.8 MG CONT INF ×4 (09:10→21:35)
[2022-08-27 12:10] LABS: Bedside Glucose 175 mg/dL (74-106)
[2022-08-27 12:21] LABS: Bedside Glucose 155 mg/dL (74-106)
[2022-08-27 15:05] LABS: Bedside Glucose 73 mg/dL (74-106)
--- NOTE | 2022-08-27 17:34 | PCM.PN.REN ---
Subjective Subjective remains intubated good UOP Objective Data Objective Data Vital Signs: Vital Signs Temp Pulse Resp BP Pulse Ox O2 Del Method O2 Flow Rate 100.0 F H 94 14 115/73 97 Mechanical Ventilator 0 08/27/22 13:00 08/27/22 17:00 08/27/22 17:00 08/27/22 17:00 08/27/22 17:00 08/27/22 17:00 08/27/22 15:00 FiO2 25 08/27/22 17:00 Oxygen Flow Rate (L/min) 0 Oxygen Delivery Method Mechanical Ventilator Weight: 72.5 kg Body Mass Index (BMI) 22.9 Intake & Output: Intake and Output for Last 24 Hours 08/25/22 08/26/22 08/27/22 23:59 23:59 23:59 Intake Total 4208.97 / 4392.97 6097.88 / 6289.98 3722.78 / 3722.78 Output Total 1700 / 2100 6350 / 6350 4050 / 4050 Balance 2508.97 / 2292.97 -252.12 / -60.02 -327.22 / -327.22 Lab / Micro Data Result Diagrams: 08/27/22 03:10 08/27/22 03:10 Labs: Laboratory Results - last 24 hr 08/26/22 17:20: POC Glucose 169 H 08/26/22 23:10: POC Glucose 143 H 08/27/22 03:10: WBC 4.9, RBC 3.79 L, Hgb 11.9 L, Hct 35.7 L, MCV 94.2 H, MCH 31.4, MCHC 33.3, RDW Std Deviation 44.4 H, RDW Coeff of Mika 12.8, Plt Count 123 L, MPV 9.6, Immature Gran % (Auto) 0.800, Neut % (Auto) 69.0, Lymph % (Auto) 13.4 L, [place] % (Auto) 11.7 H, Eos % (Auto) 4.9, Baso % (Auto) 0.2, Absolute Neuts (auto) 3.4, Absolute Lymphs (auto) 0.65 L, Nucleated RBC % 0 08/27/22 03:10: Sodium 142, Potassium 3.8, Chloride 107, Carbon Dioxide 30.0, Anion Gap 5, BUN 20 H, Creatinine 1.68 H, Estim Creat Clear Calc 50.33, Est GFR (MDRD) Af Amer 56 L, Est GFR (MDRD) Non-Af 46 L, BUN/Creatinine Ratio 11.9, Glucose 205 H, Calcium 8.0 L, Total Bilirubin 0.50, AST 98 H, ALT 98 H, Alkaline Phosphatase 263 H, Total Protein 5.3 L, Albumin 2.2 L, Globulin 3.1, Albumin/Globulin Ratio 0.7 L 08/27/22 03:10: Ammonia 43.0 H 08/27/22 05:23: POC Glucose 175 H 08/27/22 11:52: POC Glucose 155 H 08/27/22 13:34: POC Glucose 73 L Micro: Microbiology 08/22/22 10:50 Blood Culture (Wb) - Anticubital Right Blood Culture - Final No growth in 5 days. 08/23/22 10:35 Sputum, Induced/Lukens Gram Stain - Final 08/23/22 10:35 Sputum, Induced/Lukens Respiratory Culture - Final Presumptive C albicans Klebsiella oxytoca 08/22/22 10:35 Urine Catheter - [place] Urine Culture - Final Culture exhibits no growth. Radiography Diagnostic Testing: Radiology Impression KUB X-Ray 08/27/22 08:32 IMPRESSION: Tip of orogastric tube projected over the region of the duodenal bulb. Electronically Signed: Se Lynn, at 9:15 EST , Physical Exam Narrative On mechanical ventilation. More agitated S1, S2, RRR Lung coarse breath sound anteriorly Abdomen is soft No edema Indwelling Hogue catheter with clear urine in bag Assessment & Plan Assessment/Plan (1) Diabetic ketoacidosis: (2) Acute kidney failure: (3) Hypernatremia: (4) Acute respiratory failure: PLAN: Plan For renal insufficiency, it is unknown if this is acute kidney injury versus CKD. According to patient's , patient had lab work drawn at least 3 months ago and routinely by PCP. We will attempt to obtain labs to determine baseline kidney function. On presentation to the emergency room, creatinine was 5.06 mg/dL on August 21 and today SCr improved to 4.00 mg/dL. He is nonoliguric. There is no acute indication for [employer] at this time as potassium and acid-base acceptable and patient appears near euvolemic on exam. Chest x-ray reviewed, no acute cardiopulmonary disease, no pulmonary edema. GONSALO likely prerenal which may have progressed to ATN from DKA, Hypotension. Patient's UA positive glucose 1000, protein 100, occult blood 150, negative leukocyte and no RBCs. We will obtain renal ultrasound to rule out obstructive process contributing to GONSALO however patient does have indwelling Hogue with good urine output at the present time. Patient developed agitation yesterday with concern for his respiratory status and was subsequently intubated. His CT did not show any acute intracranial abnormality. Continue on IVF as ordered. BPs are improving, not on pressor support at this time. According to patient's , no new medications, patient was not taking any diuretics, GRADY or ARB before hospitalization. Further orders forthcoming as hospitalization evolves. Thank you for allowing us participate in the care of Mr. Paris. / -renal function stable with scr 1.6mg/dL -UOP 4.9L -continue with supportive care -bp stable -currently on iv lasix, might have to back off, likely reaching inflection point Thank you please call [phone] with any concerns.
[2022-08-27 18:11] LABS: Bedside Glucose 100 mg/dL (74-106)
[2022-08-27] MEDS: Lactulose 20 GM/30 ML UDC PO (21:35)
[2022-08-27] MEDS: Acetaminophen 650 MG/20 ML UDC GT (23:00)
[2022-08-27 23:45] LABS: Bedside Glucose 216 mg/dL (74-106)
[2022-08-28] VITALS (35 sets, daily range): BP systolic 97–180; BP diastolic 61–93; PULSE 65–114; RESP 12–22; TEMP 37–38; O2SAT 92–98
[2022-08-28] MEDS: Propofol 10MG/Ml 1,000 MG/100 ML Bottle 21.8 MG CONT INF ×6 (01:09→20:04)
[2022-08-28] MEDS: Insulin Lispro 100 UNIT/ML INSULN.PEN SC ×3 (01:11→17:29)
[2022-08-28] MEDS: LORazepam 2 MG/ML Syringe 1 MG IV ×5 (01:29→22:57)
[2022-08-28] MEDS: Vital AF 1.2 Cal Liquid 1,000 ML 60 ML GT ×2 (02:52→14:09)
--- NOTE | 2022-08-28 03:38 | NURSING ---
MD notified of pt increasing agitation while on the maximum fentanyl and propofol gtt. Verbals orders for 1 mg ativan Q4H prn given. Will continue to monitor
[2022-08-28 04:31] LABS: Absolute Lymphocyte Count 0.74 X10^3/uL (0.83-4.51); Absolute Neutrophil Count 2.1 X10^3/uL (2.0-7.7); Basophil# 0.01 X10^3/uL; Basophil% 0.3 % (0-1); Eosinophil# 0.28 X10^3/uL; Eosinophils% 7.2 % (0-5); Hematocrit 34.4 % (40-54); Hemoglobin 11.7 g/dL (13.0-16.5); Lymphocyte # 0.74 X10^3/ul (0.83-4.51); Lymphocyte % 18.9 % (19-41); Mean Corpuscular Hgb 31.6 pg (27.0-32.0); Mean Platelet Vol. 9.3 fl (6.2-12.0); Monocyte# 0.77 X10^3/uL; Monocyte% 19.7 % (0-10); NRBC Flagged by Analyzer 0 % (0-5); Neutrophil # 2.05 X10^3/uL (2.7-7.7); Neutrophil % 52.4 % (47-70); Platelet Count 199 K/mm3 (150-450); RBC Distribution Width SD 41.1 fl (35.1-43.9); White Blood Count 3.9 K/mm3 (4.4-11.0)
[2022-08-28 04:47] LABS: ALB/GLOB Ratio 0.7 RATIO (0.9-2.4); AST(SGOT) 55 U/L (15-37); Alanine Aminotransfer ALT/SGPT 73 U/L (16-61); Albumin, Serum 2.1 g/dL (3.2-5.0); Alkaline Phosphatase 253 U/L (45-117); Anion Gap 5 (5-15); BUN 23 mg/dL (7-18); BUN/Creat Ratio 14.8 RATIO (10-20); Calcium,Total 8.1 mg/dL (8.5-10.1); Chloride 102 mmol/L (98-107); Creatinine, Serum 1.55 mg/dL (0.70-1.30); EST Glomerular Filtration Rate 51 mL/min (>60); Est Glom Filt Rate - Afr Amer 61 mL/min (>60); Estimated Creatinine Clearance 54.55 ml/min; Globulin 3.1 g/dL (2.2-4.2); Glucose 165 mg/dL (74-106); Potassium 3.5 mmol/L (3.5-5.1); Protein, Total 5.2 g/dL (6.4-8.2); Sodium Level 139 mmol/L (136-145)
[2022-08-28] MEDS: Potassium Chloride Oral Soln 20 MEQ/15 ML UDC 40 MEQ PO (05:53)
[2022-08-28] MEDS: Insulin Glargine-YFGN 100 UNIT/ML Pen 35 UNIT SC ×2 (05:53→17:30)
[2022-08-28 06:15] LABS: Bedside Glucose 183 mg/dL (74-106)
--- NOTE | 2022-08-28 06:56 | PCM.PN.INT ---
Assessment & Plan Assessment/Plan (1) Diabetic ketoacidosis: PLAN: Plan RECOMMENDATIONS: 1. Continue assist-control mode mechanical ventilation. Wean FiO2 for saturations greater than 90%. 2. Challenge with diuretics. Hold IV fluids 3. Complete 7 days of antimicrobials (should be completed today) 4. Continue tube feeds as tolerated. Continue lactulose 5. Increase scheduled Seroquel. 6. Continue basal and sliding scale insulin regimen. 7. Continue appropriate ICU prophylaxis. 8. Electrolyte repletion as indicated. See orders IMPRESSIONS: 1. Acute respiratory failure The patient was intubated as a consequence of profound agitation and associated increased work of breathing, with concern for impending respiratory failure. He is doing well from a respiratory perspective on minimal FiO2. Plan to continue the aforementioned, with plans for daily paired spontaneous awakening and breathing trials. Likely hold on extubation until underlying encephalopathy can be controlled. Some concerns for significant positive fluid balance may complicate extubation efforts. We will challenge with scheduled Lasix today. IV fluids will be discontinued 2. Diabetic ketoacidosis Resolved. Likely secondary to outpatient noncompliance with prescribed medical therapy. The patient presented with significant DKA with profound anion gap metabolic acidosis. He has responded appropriately to aggressive fluid resuscitation, electrolyte repletion and continuous insulin infusion with resolution of his DKA. The patient has been transitioned to basal and sliding scale insulin coverage, which will be continued without change. Outpatient follow-up with an crab meat processor will be necessary. Complicated by patient's reported drinking history. Patient is significantly positive over the course of the hospitalization. 3. Encephalopathy Most likely metabolic in etiology. Anticipate slow recovery with stabilization of his underlying metabolic derangements. Continue supportive measures as noted above. Ammonia is slightly improved compared to yesterday. Continue lactulose, but titrate to 2 bowel movements a day 4. Acute kidney injury Appears to be stabilizing. Most likely prerenal in etiology in the setting of significant intravascular volume depletion due to diabetic ketoacidosis. Patient is significantly positive over the course of the hospitalization, but has had some issues with hypernatremia and hyperchloremia. Discontinue IV fluids. Continue to monitor urine output. No current indication for renal replacement therapy. 5. Hypernatremia/hypokalemia Resolved. Likely secondary to utilization of normal saline during fluid resuscitation efforts. In light of the aforementioned, the patient has received D5W. We will need to monitor his blood glucose levels closely and make adjustments to his insulin regimen as well. We will attempt to adjust fluid balance 6. Hepatitis Unclear etiology. Patient reportedly does have a regular alcohol intake. Patient's ammonia level is elevated that may be leading/contributing to problem #3. Will continue lactulose. TIME: 34 minutes of critical care time, independent of procedures, was spent addressing the patient's acute respiratory failure, diabetic ketoacidosis, encephalopathy, acute kidney injury, hypernatremia, review of all data and collaboration with the care team. Subjective Subjective Patient did okay overnight. Patient continues to have periods of agitation and was given Ativan overnight. Patient has had 5 bowel movements in the last 24 hours. Patient is tolerating tube feeds. Objective Data Objective Data Vital Signs: Vital Signs Temp Pulse Resp BP Pulse Ox O2 Del Method O2 Flow Rate 37.2 C 74 12 111/70 96 Mechanical Ventilator 0 08/28/22 06:00 08/28/22 06:00 08/28/22 06:00 08/28/22 06:00 08/28/22 06:00 08/28/22 06:00 08/27/22 15:00 FiO2 25 08/28/22 06:00 Oxygen Flow Rate (L/min) 0 Oxygen Delivery Method Mechanical Ventilator Weight: 71.8 kg Body Mass Index (BMI) 22.9 Intake & Output: Intake and Output for Last 24 Hours 08/26/22 08/27/22 08/28/22 23:59 23:59 23:59 Intake Total 6097.88 / 6289.98 6324.56 / 6516.36 626.01 / 626.01 Output Total 6350 / 6350 4850 / 4850 1650 / 1650 Balance -252.12 / -60.02 1474.56 / 1666.36 -1023.99 / -1023.99 Lab / Micro Data Attestation: I reviewed the patient's lab results. Result Diagrams: 08/28/22 04:25 08/28/22 04:25 Labs: Laboratory Results - last 24 hr 08/27/22 05:23: POC Glucose 175 H 08/27/22 11:52: POC Glucose 155 H 08/27/22 13:34: POC Glucose 73 L 08/27/22 17:39: POC Glucose 100 08/27/22 23:25: POC Glucose 216 H 08/28/22 04:25: WBC 3.9 L, RBC 3.70 L, Hgb 11.7 L, Hct 34.4 L, MCV 93.0, MCH 31.6, MCHC 34.0, RDW Std Deviation 41.1, RDW Coeff of Mika 12.0, Plt Count 199, MPV 9.3, Immature Gran % (Auto) 1.500 H, Neut % (Auto) 52.4, Lymph % (Auto) 18.9 L, [place] % (Auto) 19.7 H, Eos % (Auto) 7.2 H, Baso % (Auto) 0.3, Absolute Neuts (auto) 2.1, Absolute Lymphs (auto) 0.74 L, Nucleated RBC % 0 08/28/22 04:25: Sodium 139, Potassium 3.5, Chloride 102, Carbon Dioxide 32.0, Anion Gap 5, BUN 23 H, Creatinine 1.55 H, Estim Creat Clear Calc 54.55, Est GFR (MDRD) Af Amer 61, Est GFR (MDRD) Non-Af 51 L, BUN/Creatinine Ratio 14.8, Glucose 165 H, Calcium 8.1 L, Total Bilirubin 0.50, AST 55 H, ALT 73 H, Alkaline Phosphatase 253 H, Total Protein 5.2 L, Albumin 2.1 L, Globulin 3.1, Albumin/Globulin Ratio 0.7 L 08/28/22 05:52: POC Glucose 183 H Micro: Microbiology 08/22/22 10:50 Blood Culture (Wb) - Anticubital Right Blood Culture - Final No growth in 5 days. 08/23/22 10:35 Sputum, Induced/Lukens Gram Stain - Final 08/23/22 10:35 Sputum, Induced/Lukens Respiratory Culture - Final Presumptive C albicans Klebsiella oxytoca 08/22/22 10:35 Urine Catheter - [place] Urine Culture - Final Culture exhibits no growth. Radiography Diagnostic Testing: Radiology Impression KUB X-Ray 08/27/22 08:32 IMPRESSION: Tip of orogastric tube projected over the region of the duodenal bulb. Electronically Signed: Se Lynn, at 9:15 EST , Physical Exam Const no apparent distress Constitutional Narrative: Anasarca noted General Appearance: intubated and patient mechanically ventilated HEENT normocephalic and head/scalp atraumatic Mouth: endotracheal tube in place and OG tube in place Eyes PERRL, EOMs intact bilaterally and conjunctivae normal Eyes Narrative: Scleral injection noted. Neck supple General: trachea midline Chest inspection of chest normal Resp normal respiratory effort Resp Narrative: Good vent synchrony Auscultation: diminished lung sounds; Negative for rales, rhonchi or wheezes Cardio regular rate, regular rhythm, S1 normal heart sound, S2 normal heart sound, no murmurs, no rub and no gallops GI normal to inspection, nondistended, normoactive bowel sounds Extremity no clubbing, cyanosis or edema Skin no rashes or lesions noted Neuro no focal motor deficits Sensorium / Orientation: sedated on vent Psych Psych Narrative: Impulsive Activity / Motor Behavior: restless Mood & Affect: flat affect Charges/Coding Procedures Hospitalists Procedures: 44735 Critial Care 1st Hr
[2022-08-28] MEDS: Lactulose 20 GM/30 ML UDC PO ×2 (08:14→21:02)
[2022-08-28] MEDS: QUEtiapine 100 MG Tablet 200 MG PO ×2 (08:14→20:19)
[2022-08-28] MEDS: Furosemide 40 MG/4 ML Vial IV ×2 (08:15→17:31)
[2022-08-28] MEDS: CHLORHEXIDINE GLUC 2% CLOTH 1 EACH TOWELETTE TOPICAL (08:19)
[2022-08-28] MEDS: Chlorhexidine 15 ML PO ×2 (08:19→21:01)
--- NOTE | 2022-08-28 11:37 | PCM.PN.REN ---
Subjective Subjective He was intubated. Urine output is okay. Creatinine is down to 1.5. Objective Data Objective Data Vital Signs: Vital Signs Temp Pulse Resp BP Pulse Ox O2 Del Method O2 Flow Rate 99 F 91 22 H 108/68 96 Mechanical Ventilator 0 08/28/22 06:00 08/28/22 10:32 08/28/22 10:32 08/28/22 07:00 08/28/22 10:32 08/28/22 07:00 08/27/22 15:00 FiO2 25 08/28/22 10:32 Oxygen Flow Rate (L/min) 0 Oxygen Delivery Method Mechanical Ventilator Weight: 71.8 kg Body Mass Index (BMI) 22.9 Intake & Output: Intake and Output for Last 24 Hours 08/26/22 08/27/22 08/28/22 23:59 23:59 23:59 Intake Total 6097.88 / 6289.98 6324.56 / 6516.36 1775.47 / 1775.47 Output Total 6350 / 6350 4850 / 4850 3100 / 3100 Balance -252.12 / -60.02 1474.56 / 1666.36 -1324.53 / -1324.53 Lab / Micro Data Result Diagrams: 08/28/22 04:25 08/28/22 04:25 Labs: Laboratory Results - last 24 hr 08/27/22 05:23: POC Glucose 175 H 08/27/22 11:52: POC Glucose 155 H 08/27/22 13:34: POC Glucose 73 L 08/27/22 17:39: POC Glucose 100 08/27/22 23:25: POC Glucose 216 H 08/28/22 04:25: WBC 3.9 L, RBC 3.70 L, Hgb 11.7 L, Hct 34.4 L, MCV 93.0, MCH 31.6, MCHC 34.0, RDW Std Deviation 41.1, RDW Coeff of Mika 12.0, Plt Count 199, MPV 9.3, Immature Gran % (Auto) 1.500 H, Neut % (Auto) 52.4, Lymph % (Auto) 18.9 L, [place] % (Auto) 19.7 H, Eos % (Auto) 7.2 H, Baso % (Auto) 0.3, Absolute Neuts (auto) 2.1, Absolute Lymphs (auto) 0.74 L, Nucleated RBC % 0 08/28/22 04:25: Sodium 139, Potassium 3.5, Chloride 102, Carbon Dioxide 32.0, Anion Gap 5, BUN 23 H, Creatinine 1.55 H, Estim Creat Clear Calc 54.55, Est GFR (MDRD) Af Amer 61, Est GFR (MDRD) Non-Af 51 L, BUN/Creatinine Ratio 14.8, Glucose 165 H, Calcium 8.1 L, Total Bilirubin 0.50, AST 55 H, ALT 73 H, Alkaline Phosphatase 253 H, Total Protein 5.2 L, Albumin 2.1 L, Globulin 3.1, Albumin/Globulin Ratio 0.7 L 08/28/22 05:52: POC Glucose 183 H Micro: Microbiology 08/22/22 10:50 Blood Culture (Wb) - Anticubital Right Blood Culture - Final No growth in 5 days. 08/23/22 10:35 Sputum, Induced/Lukens Gram Stain - Final 08/23/22 10:35 Sputum, Induced/Lukens Respiratory Culture - Final Presumptive C albicans Klebsiella oxytoca 08/22/22 10:35 Urine Catheter - [place] Urine Culture - Final Culture exhibits no growth. Physical Exam Narrative Intubated no obvious distress no pallor no icterus no JVD s1s2 no murmurs lungs clear abdomen soft no organomegaly no edema no cyanosis [place] + Assessment & Plan Assessment/Plan (1) Diabetic ketoacidosis: (2) Acute kidney failure: (3) Hypernatremia: (4) Acute respiratory failure: PLAN: Plan Creatinine on admission was around 5.0. Improved to 1.5 today. Unknown baseline. Primary care physician is Dr. Jolly Cardenas. Electrolytes are acceptable. Volume status is okay. Significantly positive fluid balance, currently on Lasix IV twice daily. Chest x-ray does not look overloaded. Extubation trials as per ICU. No acute indications for renal replacement therapy. Acidosis. Initially due to diabetic ketoacidosis. Better. Currently on subcutaneous insulin.
--- NOTE | 2022-08-28 12:16 | PCM.PN.HOSP ---
Subjective Subjective Follow-up for acute hypoxic respiratory respiratory failure, DKA and GONSALO. Objective Data Objective Data Vital Signs: Vital Signs Temp Pulse Resp BP Pulse Ox O2 Del Method O2 Flow Rate 99.8 F H 88 12 115/73 92 Mechanical Ventilator 0 08/28/22 10:00 08/28/22 11:05 08/28/22 11:00 08/28/22 11:00 08/28/22 11:00 08/28/22 10:00 08/27/22 15:00 FiO2 25 08/28/22 11:00 Oxygen Flow Rate (L/min) 0 Oxygen Delivery Method Mechanical Ventilator Weight: 158 lb 4.67 oz Body Mass Index (BMI) 22.9 Intake & Output: Intake and Output for Last 24 Hours 08/26/22 08/27/22 08/28/22 23:59 23:59 23:59 Intake Total 6097.88 / 6289.98 6324.56 / 6516.36 2151.07 / 2151.07 Output Total 6350 / 6350 4850 / 4850 3100 / 3100 Balance -252.12 / -60.02 1474.56 / 1666.36 -948.93 / -948.93 Lab / Micro Data Result Diagrams: 08/28/22 04:25 08/28/22 04:25 Labs: Laboratory Results - last 24 hr 08/27/22 11:52: POC Glucose 155 H 08/27/22 13:34: POC Glucose 73 L 08/27/22 17:39: POC Glucose 100 08/27/22 23:25: POC Glucose 216 H 08/28/22 04:25: WBC 3.9 L, RBC 3.70 L, Hgb 11.7 L, Hct 34.4 L, MCV 93.0, MCH 31.6, MCHC 34.0, RDW Std Deviation 41.1, RDW Coeff of Mika 12.0, Plt Count 199, MPV 9.3, Immature Gran % (Auto) 1.500 H, Neut % (Auto) 52.4, Lymph % (Auto) 18.9 L, [place] % (Auto) 19.7 H, Eos % (Auto) 7.2 H, Baso % (Auto) 0.3, Absolute Neuts (auto) 2.1, Absolute Lymphs (auto) 0.74 L, Nucleated RBC % 0 08/28/22 04:25: Sodium 139, Potassium 3.5, Chloride 102, Carbon Dioxide 32.0, Anion Gap 5, BUN 23 H, Creatinine 1.55 H, Estim Creat Clear Calc 54.55, Est GFR (MDRD) Af Amer 61, Est GFR (MDRD) Non-Af 51 L, BUN/Creatinine Ratio 14.8, Glucose 165 H, Calcium 8.1 L, Total Bilirubin 0.50, AST 55 H, ALT 73 H, Alkaline Phosphatase 253 H, Total Protein 5.2 L, Albumin 2.1 L, Globulin 3.1, Albumin/Globulin Ratio 0.7 L 08/28/22 05:52: POC Glucose 183 H Micro: Microbiology 08/22/22 10:50 Blood Culture (Wb) - Anticubital Right Blood Culture - Final No growth in 5 days. 08/23/22 10:35 Sputum, Induced/Lukens Gram Stain - Final 08/23/22 10:35 Sputum, Induced/Lukens Respiratory Culture - Final Presumptive C albicans Klebsiella oxytoca 08/22/22 10:35 Urine Catheter - [place] Urine Culture - Final Culture exhibits no growth. Physical Exam Narrative Physical exam General: Sedated. HEENT: Atraumatic, PERRLA, EOMI, Normocephalic Oral: ET and OG tube. Patient has a lot of secretions. Neck: Supple, No JVD, Negative Carotid Bruits Lungs: Air entry diminished in bilateral lung bases. No crepitation/rhonchi Cardiovascular: Regular rate, Regular Rhythm, Normal S1, Normal S2, No murmurs Abdomen: Bowel Sounds sluggish, soft, Non Tender, Non-Distended : No renal angle tenderness. No suprapubic tenderness. Extremities: No edema, Capillary Refill Less than 3 Seconds Skin: No rashes, No breakdown Musculoskeletal: No Tenderness to Palpation of Joints or Extremities Neurological: Sedated on propofol and fentanyl. Detailed neuro exam unobtainable. Psych/Mental Status: Sedated. Assessment & Plan Assessment/Plan (1) Acute respiratory failure: (2) Diabetic ketoacidosis: (3) Hypernatremia: (4) Mental status alteration: PLAN: Plan 1. Acute encephalopathy, probable acute hepatic encephalopathy Status post intubation on admission, extubated per family request, reintubated again to obtain further imaging MRI brain as well as EEG unremarkable. Liver ultrasound showed hepatomegaly, gallbladder wall thickening with pericholecystic fluid, negative Serna sign, diffuse ascites. Ammonia improved to 43 today from 68, LFTs are also improving Continue lactulose, trend ammonia 08/28: Liver ultrasound reported normal echogenicity directional portal flow hepatopetal. GB wall 4.1 mm thickening with a small PC fluid. No GB stone. No discrete lesions acalculous cholecystitis. Acute encephalopathy most likely metabolic encephalopathy. 2. Acute respiratory failure, unclear etiology, probable acute Klebsiella pneumonia Sputum cultures growing Klebsiella. Blood and urine cultures have been negative for 48 hours. 08/28: Sputum culture grew rare Klebsiella oxytoca. ESBL negative. Blood culture negative for 5 days.Urine culture shows no growth. Continue on IV Zosyn until culture is final. Patient had low-grade fever T-max 100.4 Fahrenheit about 12 midnight. IV Zosyn is started on 08/22 therefore on seventh day of antibiotic, last dose tonight. 3. Shock, unclear etiology, probably septic versus medication side effect Patient was on Levophed transiently, currently off it Blood and urine cultures have been negative for 48 hours Continue on IV Zosyn Continue to monitor vitals 08/28: 2D echo on 08/24 shows EF 50%, LV systolic function lower limit of normal, otherwise no acute grossly abnormal finding. Echocardiogram 08/24/22 12:49 Interpretation Summary Left ventricular systolic function is lower limits of normal. The estimated ejection fraction is 50 %. Trivial mitral valve insufficiency. Trivial tricuspid valve insufficiency. Mild diffuse aortic valve thickening. Mild focal aortic valve calcification. Borderline enlarged aortic root. Right ventricular systolic pressure estimated to be 30 mmHg. No evidence for diastolic dysfunction. 4. Acute DKA, in a known type II DM patient. DKA is resolved Blood sugars are uncontrolled over the last 24 hours. HbA1c is 11.8 Continue with Lantus 35 units BID, insulin sliding scale with Q6h blood glucose checks 5. GONSALO, likely prerenal secondary to dehydration, unclear previous baseline Creatinine today is 1.68 from 5.06 on admission Renal ultrasound is unremarkable for obstructive uropathy Nephrology following, continue to trend 6. Hypernatremia, improved, sodium is 142 today from 147 08/28: Serum sodium is normal range. Serum potassium 3.5. 1 dose of 40 M EQ potassium given. 7. Hypokalemia, resolved, continue to trend 8. Acute fluid overload, patient is positive for 21 L of fluid, responsive to IV Lasix, will continue to trend 9. Thrombocytopenia, unclear etiology, improving, platelet count is 123 today from 82 We will continue to trend 10. DVT PPx- SCDs on account of transient thrombocytopenia?seems to be recovering Total time of the visit including total time spent in counseling or coordination of care, (more than 50% of the total time, spent in obtaining medical information from nurses and other ancillary care providers,explaining to the patient about labs, imaging, diagnosis and management of active complex medical conditions), discussion with carroting machine offbearer, review of labs and imaging is 45 minutes. Charges/Coding Visit Charges Inpatient E&M: 64106 Subs Hosp L2
[2022-08-28 12:41] LABS: Bedside Glucose 147 mg/dL (74-106)
[2022-08-28 18:10] LABS: Bedside Glucose 212 mg/dL (74-106)
[2022-08-29] VITALS (28 sets, daily range): BP systolic 111–157; BP diastolic 73–113; PULSE 82–152; RESP 12–28; TEMP 37.7–38.7; O2SAT 90–100
[2022-08-29] MEDS: Insulin Lispro 100 UNIT/ML INSULN.PEN SC ×3 (00:06→23:57)
[2022-08-29 00:25] LABS: Bedside Glucose 191 mg/dL (74-106)
[2022-08-29] MEDS: Propofol 10MG/Ml 1,000 MG/100 ML Bottle 21.8 MG CONT INF ×3 (00:46→06:49)
[2022-08-29] MEDS: LORazepam 2 MG/ML Syringe 1 MG IV ×3 (03:00→11:44)
[2022-08-29 03:33] LABS: Absolute Lymphocyte Count 0.66 X10^3/uL (0.83-4.51); Basophil# 0.01 X10^3/uL; Basophil% 0.2 % (0-1); Eosinophil# 0.26 X10^3/uL; Eosinophils% 5.3 % (0-5); Hematocrit 36.7 % (40-54); Hemoglobin 12.5 g/dL (13.0-16.5); Lymphocyte # 0.66 X10^3/ul (0.83-4.51); Lymphocyte % 13.4 % (19-41); Mean Corp Hgb Conc 34.1 g/dL (32-36); Mean Corpuscular Hgb 32.1 pg (27.0-32.0); Mean Corpuscular Volume 94.3 fL (80-94); Mean Platelet Vol. 8.9 fl (6.2-12.0); Monocyte# 0.97 X10^3/uL; Monocyte% 19.8 % (0-10); NRBC Flagged by Analyzer 0 % (0-5); Neutrophil # 2.96 X10^3/uL (2.7-7.7); Neutrophil % 60.3 % (47-70); Platelet Count 313 K/mm3 (150-450); RBC Distribution Width CV 11.9 % (11.6-14.6); RBC Distribution Width SD 41.1 fl (35.1-43.9); Red Blood Count 3.89 M/mm3 (4.6-6.2); White Blood Count 4.9 K/mm3 (4.4-11.0)
[2022-08-29] MEDS: Vital AF 1.2 Cal Liquid 1,000 ML 60 ML GT (03:44)
[2022-08-29 03:47] LABS: ALB/GLOB Ratio 0.6 RATIO (0.9-2.4); AST(SGOT) 65 U/L (15-37); Alanine Aminotransfer ALT/SGPT 74 U/L (16-61); Albumin, Serum 2.2 g/dL (3.2-5.0); Alkaline Phosphatase 264 U/L (45-117); Anion Gap 4 (5-15); BUN 26 mg/dL (7-18); BUN/Creat Ratio 16.4 RATIO (10-20); Calcium,Total 8.3 mg/dL (8.5-10.1); Chloride 98 mmol/L (98-107); Creatinine, Serum 1.59 mg/dL (0.70-1.30); EST Glomerular Filtration Rate 49 mL/min (>60); Est Glom Filt Rate - Afr Amer 59 mL/min (>60); Estimated Creatinine Clearance 53.18 ml/min; Globulin 3.5 g/dL (2.2-4.2); Glucose 215 mg/dL (74-106); Potassium 3.6 mmol/L (3.5-5.1); Protein, Total 5.7 g/dL (6.4-8.2); Sodium Level 137 mmol/L (136-145)
[2022-08-29] MEDS: Insulin Glargine-YFGN 100 UNIT/ML Pen 35 UNIT SC (05:45)
--- NOTE | 2022-08-29 06:06 | PCM.PN.HOSP ---
Subjective Subjective Follow-up on acute metabolic encephalopathy/acute DKA/GONSALO/electrolyte imbalances: Patient was seen and examined.? Patient remains intubated, on minimal oxygen requirements on the ventilator. He is more awake and slightly agitated, moving against the restraints, sedation is ongoing. Objective Data Objective Data Vital Signs: Vital Signs Temp Pulse Resp BP Pulse Ox O2 Del Method O2 Flow Rate 100.2 F H 91 12 126/80 H 94 Mechanical Ventilator 0 08/29/22 04:00 08/29/22 05:00 08/29/22 05:00 08/29/22 05:00 08/29/22 05:00 08/29/22 05:00 08/27/22 15:00 FiO2 25 08/29/22 05:00 Oxygen Flow Rate (L/min) 0 Oxygen Delivery Method Mechanical Ventilator Weight: 71.4 kg Body Mass Index (BMI) 22.9 Intake & Output: Intake and Output for Last 24 Hours 08/27/22 08/28/22 08/29/22 23:59 23:59 23:59 Intake Total 6324.56 / 6516.36 3728.26 / 3750.06 1217.54 / 1217.54 Output Total 4850 / 4850 5925 / 6225 725 / 725 Balance 1474.56 / 1666.36 -2196.74 / -2474.94 492.54 / 492.54 Lab / Micro Data Result Diagrams: 08/29/22 03:20 08/29/22 03:20 Labs: Laboratory Results - last 24 hr 08/28/22 05:52: POC Glucose 183 H 08/28/22 12:14: POC Glucose 147 H 08/28/22 17:28: POC Glucose 212 H 08/29/22 00:05: POC Glucose 191 H 08/29/22 03:20: WBC 4.9, RBC 3.89 L, Hgb 12.5 L, Hct 36.7 L, MCV 94.3 H, MCH 32.1 H, MCHC 34.1, RDW Std Deviation 41.1, RDW Coeff of Mika 11.9, Plt Count 313, MPV 8.9, Immature Gran % (Auto) 1.000 H, Neut % (Auto) 60.3, Lymph % (Auto) 13.4 L, [place] % (Auto) 19.8 H, Eos % (Auto) 5.3 H, Baso % (Auto) 0.2, Absolute Neuts (auto) 3.0, Absolute Lymphs (auto) 0.66 L, Nucleated RBC % 0 08/29/22 03:20: Sodium 137, Potassium 3.6, Chloride 98, Carbon Dioxide 35.0 H, Anion Gap 4 L, BUN 26 H, Creatinine 1.59 H, Estim Creat Clear Calc 53.18, Est GFR (MDRD) Af Amer 59 L, Est GFR (MDRD) Non-Af 49 L, BUN/Creatinine Ratio 16.4, Glucose 215 H, Calcium 8.3 L, Total Bilirubin 0.40, AST 65 H, ALT 74 H, Alkaline Phosphatase 264 H, Total Protein 5.7 L, Albumin 2.2 L, Globulin 3.5, Albumin/Globulin Ratio 0.6 L 08/29/22 03:40: Ammonia 75.0 H Micro: Microbiology 08/22/22 10:50 Blood Culture (Wb) - Anticubital Right Blood Culture - Final No growth in 5 days. 08/23/22 10:35 Sputum, Induced/Lukens Gram Stain - Final 08/23/22 10:35 Sputum, Induced/Lukens Respiratory Culture - Final Presumptive C albicans Klebsiella oxytoca 08/22/22 10:35 Urine Catheter - [place] Urine Culture - Final Culture exhibits no growth. Physical Exam Narrative Physical exam: General: Mildly sedated, intubated, mechanical ventilator HEENT: Atraumatic Oral: Moist Mucosa Neck: Supple Lungs: Diminished to auscultation Cardiovascular: HS I+II, regular, no murmurs Abdomen: Bowel Sounds Present, Soft, Non Tender Extremities: Bilateral leg edema +3 Skin: No rashes, No breakdown Neurological: Grossly intact Psych/Mental Status: Appropriate Assessment & Plan Assessment/Plan (1) Acute respiratory failure: PLAN: Plan 1. Acute encephalopathy, probable acute hepatic encephalopathy, persistent Status post intubation on admission, extubated per family request, reintubated again to obtain further imaging MRI brain as well as EEG unremarkable. Liver ultrasound showed hepatomegaly, gallbladder wall thickening with pericholecystic fluid, negative Serna sign, diffuse ascites. Ammonia is 75, LFTs are also improving Continue lactulose, trend ammonia 2. Acute respiratory failure, unclear etiology, probable acute Klebsiella pneumonia Sputum cultures growing Klebsiella.? Blood and urine cultures have been? negative for 48 hours. Completed 7 days of IV Zosyn Button Decorating Machine Operator following. 3. Shock, unclear etiology, probably septic versus medication side effect Patient was on Levophed transiently, currently off it Blood and urine cultures have been negative for 48 hours Completed IV Zosyn Continue to monitor vitals 4. Acute DKA, in a known type II DM patient. DKA is resolved Blood sugars are uncontrolled over the last 24 hours. HbA1c is 11.8 Continue with Lantus 35 units BID, insulin sliding scale with Q6h blood glucose checks 5. GONSALO, likely prerenal secondary to dehydration, unclear previous baseline Creatinine today is 1.59 from 5.06 on admission Renal ultrasound is unremarkable for obstructive uropathy Nephrology following, continue to trend 6. Hypernatremia, resolved, sodium is 137 Will continue to trend 7. Hypokalemia, resolved, continue to trend 8.? Acute fluid overload, patient is positive for 21 L of fluid, responsive to IV Lasix, Continue on IV Lasix, continue to trend 9.? Thrombocytopenia, unclear etiology, resolved, Platelet count is currently 313, will trend 10. DVT PPx- SCDs Charges/Coding Visit Charges Inpatient E&M: 93751 Subs Hosp L3
[2022-08-29] MEDS: 0.9% Saline Lock 10 ML Syringe IV ×4 (07:38→17:31)
--- NOTE | 2022-08-29 07:40 | PCM.PN.INT ---
Assessment & Plan Assessment/Plan (1) Diabetic ketoacidosis: PLAN: Plan RECOMMENDATIONS: 1. Continue assist-control mode mechanical ventilation. Wean FiO2 for saturations greater than 90%. 2. Challenge with diuretics. Hold IV fluids 3. Monitor off antibiotics 4. Continue tube feeds as tolerated. Continue lactulose. Add rifaximin 5. Increase scheduled Seroquel. Possible transition to Precedex 6. Continue basal and sliding scale insulin regimen. 7. Continue appropriate ICU prophylaxis. 8. Electrolyte repletion as indicated. See orders IMPRESSIONS: 1. Acute respiratory failure The patient was intubated as a consequence of profound agitation and associated increased work of breathing, with concern for impending respiratory failure. He is doing well from a respiratory perspective on minimal FiO2. Plan to continue the aforementioned, with plans for daily paired spontaneous awakening and breathing trials. Continue to have difficulty with spontaneous breathing trial given agitation. We will need to discuss with the family about possibility of transition to Precedex, which they have been resistant to previously. May attempt transitioning to spontaneous mode to see if this is better tolerated by the patient. Patient was noted to have a leak this morning. 2. Diabetic ketoacidosis Resolved. Likely secondary to outpatient noncompliance with prescribed medical therapy. The patient presented with significant DKA with profound anion gap metabolic acidosis. He has responded appropriately to aggressive fluid resuscitation, electrolyte repletion and continuous insulin infusion with resolution of his DKA. The patient has been transitioned to basal and sliding scale insulin coverage, which will be continued without change. Outpatient follow-up with an erosion control specialist will be necessary. Complicated by patient's reported drinking history. Patient is significantly positive over the course of the hospitalization. Patient tolerating diuresis at this time. 3. Encephalopathy Most likely metabolic in etiology. Anticipate slow recovery with stabilization of his underlying metabolic derangements. Continue supportive measures as noted above. Ammonia is worsened compared to yesterday. Continue lactulose, but will add rifaximin. Cerebral edema would be a concern, but this was not suggested by MRI. 4. Acute kidney injury Appears to be stabilizing. Most likely prerenal in etiology in the setting of significant intravascular volume depletion due to diabetic ketoacidosis. Patient is significantly positive over the course of the hospitalization, but has had some issues with hypernatremia and hyperchloremia. Discontinue IV fluids. Continue to monitor urine output. No current indication for renal replacement therapy. 5. Hypernatremia/hypokalemia Resolved. Likely secondary to utilization of normal saline during fluid resuscitation efforts. In light of the aforementioned, the patient has received D5W. We will need to monitor his blood glucose levels closely and make adjustments to his insulin regimen as well. IV fluids have been discontinued. 6. Hepatitis Unclear etiology. Patient reportedly does have a regular alcohol intake. Patient's ammonia level is elevated that may be leading/contributing to problem #3. Will continue lactulose and add rifaximin. Addendum 10:32 AM: Long discussion with and daughter at the bedside. Patient was able to tolerate a spontaneous breathing trial for 1 hour despite propofol and fentanyl continuous infusions. Patient was monitored clinically at the bedside by staff. Family was updated. Patient did have a leak. After review the risks, benefits and alternatives, the plan will be to discontinue the propofol and fentanyl for 30 minutes and then proceed with extubation. We will attempt a bedside swallow evaluation. If patient is able to pass a bedside swallow evaluation, will continue with Seroquel and wean over the next 5 to 7 days. If patient is not able to tolerate Seroquel, family is willing to attempt to Precedex if it is absolutely necessary. Haldol would be another alternative, as long as Seroquel is not able to be administered. Family is aware that this is not ideal as its duration of action is relatively short and can lead to bursts of behavior. TIME: 52 minutes of critical care time, independent of procedures, was spent addressing the patient's acute respiratory failure, diabetic ketoacidosis, encephalopathy, acute kidney injury, hypernatremia, review of all data and collaboration with the care team. Subjective Subjective Patient did okay from a hemodynamic standpoint overnight. Patient has tolerated diuresis well. No fevers have been noted. Nursing continues to report patient has been agitated requiring frequent as needed Ativan, in addition to significant propofol. Patient does continue to have bowel movements. Objective Data Objective Data QT has been acceptable Vital Signs: Vital Signs Temp Pulse Resp BP Pulse Ox O2 Del Method O2 Flow Rate 37.9 C H 94 16 128/86 H 91 Mechanical Ventilator 0 08/29/22 04:00 08/29/22 07:00 08/29/22 07:00 08/29/22 07:00 08/29/22 07:00 08/29/22 07:00 08/27/22 15:00 FiO2 25 08/29/22 07:00 Oxygen Flow Rate (L/min) 0 Oxygen Delivery Method Mechanical Ventilator Weight: 71.4 kg Body Mass Index (BMI) 22.9 Intake & Output: Intake and Output for Last 24 Hours 08/27/22 08/28/22 08/29/22 23:59 23:59 23:59 Intake Total 6324.56 / 6516.36 3728.26 / 3750.06 1342.94 / 1342.94 Output Total 4850 / 4850 5925 / 6225 805 / 805 Balance 1474.56 / 1666.36 -2196.74 / -2474.94 537.94 / 537.94 Lab / Micro Data Result Diagrams: 08/29/22 03:20 08/29/22 03:20 Labs: Laboratory Results - last 24 hr 08/28/22 12:14: POC Glucose 147 H 08/28/22 17:28: POC Glucose 212 H 08/29/22 00:05: POC Glucose 191 H 08/29/22 03:20: WBC 4.9, RBC 3.89 L, Hgb 12.5 L, Hct 36.7 L, MCV 94.3 H, MCH 32.1 H, MCHC 34.1, RDW Std Deviation 41.1, RDW Coeff of Mika 11.9, Plt Count 313, MPV 8.9, Immature Gran % (Auto) 1.000 H, Neut % (Auto) 60.3, Lymph % (Auto) 13.4 L, [place] % (Auto) 19.8 H, Eos % (Auto) 5.3 H, Baso % (Auto) 0.2, Absolute Neuts (auto) 3.0, Absolute Lymphs (auto) 0.66 L, Nucleated RBC % 0 08/29/22 03:20: Sodium 137, Potassium 3.6, Chloride 98, Carbon Dioxide 35.0 H, Anion Gap 4 L, BUN 26 H, Creatinine 1.59 H, Estim Creat Clear Calc 53.18, Est GFR (MDRD) Af Amer 59 L, Est GFR (MDRD) Non-Af 49 L, BUN/Creatinine Ratio 16.4, Glucose 215 H, Calcium 8.3 L, Total Bilirubin 0.40, AST 65 H, ALT 74 H, Alkaline Phosphatase 264 H, Total Protein 5.7 L, Albumin 2.2 L, Globulin 3.5, Albumin/Globulin Ratio 0.6 L 08/29/22 03:40: Ammonia 75.0 H Micro: Microbiology 08/22/22 10:50 Blood Culture (Wb) - Anticubital Right Blood Culture - Final No growth in 5 days. 08/23/22 10:35 Sputum, Induced/Lukens Gram Stain - Final 08/23/22 10:35 Sputum, Induced/Lukens Respiratory Culture - Final Presumptive C albicans Klebsiella oxytoca 08/22/22 10:35 Urine Catheter - [place] Urine Culture - Final Culture exhibits no growth. Physical Exam Const alert Constitutional Narrative: Anasarca improved. Patient with eyes open and trying to sit up frequently General Appearance: intubated and patient mechanically ventilated HEENT normocephalic and head/scalp atraumatic Mouth: endotracheal tube in place and OG tube in place Eyes PERRL, EOMs intact bilaterally and conjunctivae normal Eyes Narrative: Scleral injection noted. Neck supple General: trachea midline Chest inspection of chest normal Resp normal respiratory effort Resp Narrative: Fair vent synchrony Auscultation: diminished lung sounds; Negative for rales, rhonchi or wheezes Cardio regular rate, regular rhythm, S1 normal heart sound, S2 normal heart sound, no murmurs, no rub and no gallops GI normal to inspection, nondistended, normoactive bowel sounds Extremity General Extremity: edema Skin no rashes or lesions noted Neuro no focal motor deficits Neuro Narrative: Spontaneously sitting up in bed despite maximum propofol and Ativan Sensorium / Orientation: sedated on vent Psych Psych Narrative: Impulsive Activity / Motor Behavior: restless Mood & Affect: flat affect Charges/Coding Procedures Hospitalists Procedures: 02200 Critial Care 1st Hr
[2022-08-29 07:41] LABS: Bedside Glucose 198 mg/dL (74-106)
--- NOTE | 2022-08-29 08:55 | RAD_ITS ---
STUDY: X-RAY - ABDOMEN/PELVIS REASON FOR EXAM: Male, 52 years old. Check OG tube placement TECHNIQUE: Single AP view of the abdomen / pelvis. COMPARISON: Comparison is made with prior study dated 08/27/2022. FINDINGS: The tip of the orogastric tube is in the distal portion of the stomach. There is an unremarkable bowel gas pattern. The visualized liver, spleen and kidneys are grossly normal in size and morphology. Normal soft tissue structures. There are diffuse degenerative changes of the visualized lumbar spine. RAD/Abdomen Single View (Portable) IMPRESSION: The tip of the orogastric tube is in distal portion of the stomach. This is unchanged. Electronically Signed: Finn Marrero MD at 9:20 EST ,
[2022-08-29] MEDS: rifAXIMin 550 MG Tablet PO (08:59)
[2022-08-29] MEDS: Lactulose 20 GM/30 ML UDC PO (08:59)
[2022-08-29] MEDS: QUEtiapine 100 MG Tablet 250 MG GT ×2 (08:59→22:09)
[2022-08-29 10:15] LABS: Allen Test Positive; Base Excess 9 mmol/L (-2 to +2); Bicarbonate 32.8 mmol/L (22-26); Blood Gas Specimen Type ART; FI02 25; O2 Delivery Device CPAP; PEEP 5; PO2 76 mmHG (75-100); PS 5; SITE R Brach; SO2 96 % (95-99); Total Carbon Dioxide 34 mmol/L; pH 7.47 (7.35-7.45)
[2022-08-29] MEDS: Furosemide 40 MG/4 ML Vial IV ×2 (10:24→17:31)
--- NOTE | 2022-08-29 10:27 | PN.RENAL_ITS ---
Subjective Subjective No new events Objective Data Objective Data Vital Signs: Vital Signs Temp Pulse Resp BP Pulse Ox O2 Del Method O2 Flow Rate 100.8 F H 115 H 18 151/86 H 93 Mechanical Ventilator 0 08/29/22 09:00 08/29/22 09:00 08/29/22 09:00 08/29/22 09:00 08/29/22 09:00 08/29/22 09:00 08/27/22 15:00 FiO2 25 08/29/22 09:00 Oxygen Flow Rate (L/min) 0 Oxygen Delivery Method Mechanical Ventilator Weight: 71.4 kg Body Mass Index (BMI) 22.9 Intake & Output: Intake and Output for Last 24 Hours 08/27/22 08/28/22 08/29/22 23:59 23:59 23:59 Intake Total 6324.56 / 6516.36 3728.26 / 3750.06 1576.54 / 1576.54 Output Total 4850 / 4850 5925 / 6225 1105 / 1105 Balance 1474.56 / 1666.36 -2196.74 / -2474.94 471.54 / 471.54 Lab / Micro Data Result Diagrams: 08/29/22 03:20 08/29/22 03:20 Labs: Laboratory Results - last 24 hr 08/28/22 12:14: POC Glucose 147 H 08/28/22 17:28: POC Glucose 212 H 08/29/22 00:05: POC Glucose 191 H 08/29/22 03:20: WBC 4.9, RBC 3.89 L, Hgb 12.5 L, Hct 36.7 L, MCV 94.3 H, MCH 32.1 H, MCHC 34.1, RDW Std Deviation 41.1, RDW Coeff of Mika 11.9, Plt Count 313, MPV 8.9, Immature Gran % (Auto) 1.000 H, Neut % (Auto) 60.3, Lymph % (Auto) 13.4 L, [place] % (Auto) 19.8 H, Eos % (Auto) 5.3 H, Baso % (Auto) 0.2, Absolute Neuts (auto) 3.0, Absolute Lymphs (auto) 0.66 L, Nucleated RBC % 0 08/29/22 03:20: Sodium 137, Potassium 3.6, Chloride 98, Carbon Dioxide 35.0 H, Anion Gap 4 L, BUN 26 H, Creatinine 1.59 H, Estim Creat Clear Calc 53.18, Est GFR (MDRD) Af Amer 59 L, Est GFR (MDRD) Non-Af 49 L, BUN/Creatinine Ratio 16.4, Glucose 215 H, Calcium 8.3 L, Total Bilirubin 0.40, AST 65 H, ALT 74 H, Alkaline Phosphatase 264 H, Total Protein 5.7 L, Albumin 2.2 L, Globulin 3.5, Albumin/Globulin Ratio 0.6 L 08/29/22 03:40: Ammonia 75.0 H 08/29/22 05:42: POC Glucose 198 H Micro: Microbiology 08/22/22 10:50 Blood Culture (Wb) - Anticubital Right Blood Culture - Final No growth in 5 days. 08/23/22 10:35 Sputum, Induced/Lukens Gram Stain - Final 08/23/22 10:35 Sputum, Induced/Lukens Respiratory Culture - Final Presumptive C albicans Klebsiella oxytoca 08/22/22 10:35 Urine Catheter - [place] Urine Culture - Final Culture exhibits no growth. ABG Data ABG results: ABG 08/29/22 10:08 Specimen Type ART Sample Site R Brach pH 7.47 H Bicarbonate Actual 32.8 H Total CO2 34 Base Excess 9 H O2 Saturation 96 O2 % 25 ABG pCO2 45.0 ABG pO2 76 Adeel Test Positive O2 Delivery Device CPAP POC PEEP 5 POC Pressure Suppt 5 Radiography Diagnostic Testing: Radiology Impression KUB X-Ray 08/29/22 08:55 IMPRESSION: The tip of the orogastric tube is in distal portion of the stomach. This is unchanged. Electronically Signed: Finn Marrero MD at 9:20 EST , Physical Exam Narrative Intubated no obvious distress no pallor no icterus no JVD s1s2 no murmurs lungs clear abdomen soft no organomegaly no edema no cyanosis [place] + Assessment & Plan Assessment/Plan (1) Diabetic ketoacidosis: (2) Acute kidney failure: (3) Hypernatremia: (4) Acute respiratory failure: PLAN: Plan Creatinine on admission was around 5.0. Improved to 1.5 today. Unknown baseline. Primary care physician is Dr. Jolly Cardenas. Electrolytes are acceptable. Volume status is okay. Significantly positive fluid balance, currently on Lasix IV twice daily. Chest x-ray does not look overloaded. Extubation trials as per ICU. No acute indications for renal replacement therapy. Acidosis. Initially due to diabetic ketoacidosis. Better. Currently on subcutaneous insulin.
[2022-08-29] MEDS: CHLORHEXIDINE GLUC 2% CLOTH 1 EACH TOWELETTE TOPICAL (11:27)
[2022-08-29] MEDS: Enoxaparin 40 MG/0.4 ML Syringe SC (11:27)
[2022-08-29 18:00] LABS: Bedside Glucose 84 mg/dL (74-106)
[2022-08-29] MEDS: Dextrose 50%-Water 25 GM/50 ML DISP.SYRIN IV (19:17)
[2022-08-30] VITALS (29 sets, daily range): BP systolic 113–158; BP diastolic 64–87; PULSE 74–122; RESP 12–23; TEMP 37.9–38.7; O2SAT 91–100
[2022-08-30 00:15] LABS: Bedside Glucose 180 mg/dL (74-106)
[2022-08-30 04:30] LABS: Absolute Lymphocyte Count 0.97 X10^3/uL (0.83-4.51); Absolute Neutrophil Count 7.3 X10^3/uL (2.0-7.7); Basophil# 0.03 X10^3/uL; Basophil% 0.3 % (0-1); Eosinophil# 0.04 X10^3/uL; Eosinophils% 0.4 % (0-5); Hematocrit 39.1 % (40-54); Hemoglobin 13.2 g/dL (13.0-16.5); Lymphocyte # 0.97 X10^3/ul (0.83-4.51); Mean Corp Hgb Conc 33.8 g/dL (32-36); Mean Corpuscular Hgb 31.4 pg (27.0-32.0); Mean Corpuscular Volume 92.9 fL (80-94); Mean Platelet Vol. 8.4 fl (6.2-12.0); Monocyte# 1.33 X10^3/uL; Monocyte% 13.7 % (0-10); NRBC Flagged by Analyzer 0 % (0-5); Neutrophil # 7.26 X10^3/uL (2.7-7.7); Neutrophil % 75.1 % (47-70); Platelet Count 457 K/mm3 (150-450); RBC Distribution Width CV 11.9 % (11.6-14.6); RBC Distribution Width SD 40.2 fl (35.1-43.9); Red Blood Count 4.21 M/mm3 (4.6-6.2); White Blood Count 9.7 K/mm3 (4.4-11.0)
[2022-08-30 04:52] LABS: ALB/GLOB Ratio 0.6 RATIO (0.9-2.4); AST(SGOT) 96 U/L (15-37); Alanine Aminotransfer ALT/SGPT 88 U/L (16-61); Albumin, Serum 2.5 g/dL (3.2-5.0); Alkaline Phosphatase 246 U/L (45-117); Anion Gap 5 (5-15); BUN 28 mg/dL (7-18); BUN/Creat Ratio 18.2 RATIO (10-20); Calcium,Total 9.2 mg/dL (8.5-10.1); Chloride 103 mmol/L (98-107); Creatinine, Serum 1.54 mg/dL (0.70-1.30); EST Glomerular Filtration Rate 51 mL/min (>60); Est Glom Filt Rate - Afr Amer 62 mL/min (>60); Globulin 4.1 g/dL (2.2-4.2); Glucose 126 mg/dL (74-106); Potassium 3.3 mmol/L (3.5-5.1); Protein, Total 6.6 g/dL (6.4-8.2); Sodium Level 144 mmol/L (136-145)
[2022-08-30] MEDS: Insulin Glargine-YFGN 100 UNIT/ML Pen 35 UNIT SC ×2 (05:41→16:23)
[2022-08-30] MEDS: Acetaminophen 650 MG Suppository RC (05:42)
[2022-08-30] MEDS: Potassium Chloride 10mEq/100mL 10 MEQ/100 ML IV.SOLN. 100 MEQ IV BOLUS ×4 (05:48→09:15)
[2022-08-30 06:05] LABS: Bedside Glucose 138 mg/dL (74-106)
[2022-08-30] MEDS: TITRATION PARAMETER CHANGE 1 EACH IV (06:33)
[2022-08-30] MEDS: CHLORHEXIDINE GLUC 2% CLOTH 1 EACH TOWELETTE TOPICAL (06:34)
[2022-08-30] MEDS: Menthol/Lanolin/Calamine/Znox 113 GM Tube 1 APPLIC TOPICAL ×2 (08:02→20:30)
--- NOTE | 2022-08-30 08:10 | PCM.PN.INT ---
Assessment & Plan Assessment/Plan (1) Diabetic ketoacidosis: PLAN: Plan RECOMMENDATIONS: 1. Wean FiO2 for saturations greater than 90%. 2. Continue with diuretics. Hold IV fluids 3. Monitor off antibiotics 4. Bedside swallow evaluation versus swallow study 5. Continue Seroquel if possible. Attempt to discontinue Precedex 6. Continue basal and sliding scale insulin regimen. 7. Continue appropriate ICU prophylaxis. 8. Electrolyte repletion as indicated. See orders IMPRESSIONS: 1. Acute respiratory failure The patient was intubated as a consequence of profound agitation and associated increased work of breathing, with concern for impending respiratory failure. He is doing well from a respiratory perspective on minimal FiO2. Plan to continue the aforementioned, with plans for daily paired spontaneous awakening and breathing trials. Patient successfully extubated to nasal cannula. Patient appears to be tolerating this well as long as he is not removing the nasal cannula. 2. Diabetic ketoacidosis Resolved. Likely secondary to outpatient noncompliance with prescribed medical therapy. The patient presented with significant DKA with profound anion gap metabolic acidosis. He has responded appropriately to aggressive fluid resuscitation, electrolyte repletion and continuous insulin infusion with resolution of his DKA. The patient has been transitioned to basal and sliding scale insulin coverage, which will be continued without change. Outpatient follow-up with an transportation officer will be necessary. Complicated by patient's reported drinking history. Patient is significantly positive over the course of the hospitalization. Patient tolerating diuresis at this time. 3. Encephalopathy Most likely metabolic in etiology. Anticipate slow recovery with stabilization of his underlying metabolic derangements. Continue supportive measures as noted above. Would like to continue with lactulose and rifaximin for now. Difficult to assess given ongoing Precedex. 4. Acute kidney injury Appears to be stabilizing. Most likely prerenal in etiology in the setting of significant intravascular volume depletion due to diabetic ketoacidosis. Patient is significantly positive over the course of the hospitalization, but has had some issues with hypernatremia and hyperchloremia. Off IV fluids. Continue to monitor urine output. No current indication for renal replacement therapy. 5. Hypernatremia/hypokalemia Resolved. Likely secondary to utilization of normal saline during fluid resuscitation efforts. In light of the aforementioned, the patient has received D5W. We will need to monitor his blood glucose levels closely and make adjustments to his insulin regimen as well. IV fluids have been discontinued. 6. Hepatitis Unclear etiology. Patient reportedly does have a regular alcohol intake. Patient's ammonia level is elevated that may be leading/contributing to problem #3. Will continue lactulose and add rifaximin. Subjective Subjective Patient did well overnight. No acute issues were reported outside of a fever. Patient did receive Seroquel p.o., but other medications were held secondary to concerns for swallow. Patient is much more appropriate today. Patient does have a hoarse voice and continues to have periodic coughing. Objective Data Objective Data Vital Signs: Vital Signs Temp Pulse Resp BP Pulse Ox O2 Del Method O2 Flow Rate 37.9 C H 74 16 132/70 H 100 Nasal Cannula 2 08/30/22 08:00 08/30/22 08:00 08/30/22 08:00 08/30/22 08:00 08/30/22 08:00 08/30/22 08:00 08/30/22 08:00 FiO2 25 08/29/22 10:00 Oxygen Flow Rate (L/min) 2 Oxygen Delivery Method Nasal Cannula Weight: 67 kg Body Mass Index (BMI) 22.9 Intake & Output: Intake and Output for Last 24 Hours 08/28/22 08/29/22 08/30/22 23:59 23:59 23:59 Intake Total 3728.26 / 3750.06 2518.77 / 2525.02 497.15 / 497.15 Output Total 5925 / 6225 4155 / 4155 350 / 350 Balance -2196.74 / -2474.94 -1636.23 / -1629.98 147.15 / 147.15 Lab / Micro Data Attestation: I reviewed the patient's lab results. Result Diagrams: 08/30/22 04:15 08/30/22 04:15 Labs: Laboratory Results - last 24 hr 08/29/22 17:28: POC Glucose 84 08/29/22 23:56: POC Glucose 180 H 08/30/22 04:15: WBC 9.7, RBC 4.21 L, Hgb 13.2, Hct 39.1 L, MCV 92.9, MCH 31.4, MCHC 33.8, RDW Std Deviation 40.2, RDW Coeff of Mika 11.9, Plt Count 457 H, MPV 8.4, Immature Gran % (Auto) 0.500, Neut % (Auto) 75.1 H, Lymph % (Auto) 10.0 L, [place] % (Auto) 13.7 H, Eos % (Auto) 0.4, Baso % (Auto) 0.3, Absolute Neuts (auto) 7.3, Absolute Lymphs (auto) 0.97, Nucleated RBC % 0 08/30/22 04:15: Sodium 144, Potassium 3.3 L, Chloride 103, Carbon Dioxide 36.0 H, Anion Gap 5, BUN 28 H, Creatinine 1.54 H, Estim Creat Clear Calc 54.90, Est GFR (MDRD) Af Amer 62, Est GFR (MDRD) Non-Af 51 L, BUN/Creatinine Ratio 18.2, Glucose 126 H, Calcium 9.2, Total Bilirubin 0.60, AST 96 H, ALT 88 H, Alkaline Phosphatase 246 H, Total Protein 6.6, Albumin 2.5 L, Globulin 4.1, Albumin/Globulin Ratio 0.6 L 08/30/22 05:39: POC Glucose 138 H Micro: Microbiology 08/22/22 10:50 Blood Culture (Wb) - Anticubital Right Blood Culture - Final No growth in 5 days. 08/23/22 10:35 Sputum, Induced/Lukens Gram Stain - Final 08/23/22 10:35 Sputum, Induced/Lukens Respiratory Culture - Final Presumptive C albicans Klebsiella oxytoca 08/22/22 10:35 Urine Catheter - [place] Urine Culture - Final Culture exhibits no growth. ABG Data ABG results: ABG 08/29/22 10:08 Specimen Type ART Sample Site R Brach pH 7.47 H Bicarbonate Actual 32.8 H Total CO2 34 Base Excess 9 H O2 Saturation 96 O2 % 25 ABG pCO2 45.0 ABG pO2 76 Adeel Test Positive O2 Delivery Device CPAP POC PEEP 5 POC Pressure Suppt 5 Radiography Diagnostic Testing: Radiology Impression KUB X-Ray 08/29/22 08:55 IMPRESSION: The tip of the orogastric tube is in distal portion of the stomach. This is unchanged. Electronically Signed: Finn Marrero MD at 9:20 EST , Physical Exam Const alert Constitutional Narrative: Anasarca improved. Patient with eyes open and trying to sit up frequently. More interactive today. HEENT normocephalic and head/scalp atraumatic Eyes PERRL, EOMs intact bilaterally and conjunctivae normal Eyes Narrative: Scleral injection noted. Neck supple General: trachea midline Chest inspection of chest normal Resp normal respiratory effort Resp Narrative: Fair vent synchrony Auscultation: diminished lung sounds; Negative for rales, rhonchi or wheezes Cardio regular rate, regular rhythm, S1 normal heart sound, S2 normal heart sound, no murmurs, no rub and no gallops GI normal to inspection, nondistended, normoactive bowel sounds Extremity Extremity Narrative: Edema improving General Extremity: edema Skin no rashes or lesions noted Skin Narrative: Surjit appearance Neuro no focal motor deficits Neuro Narrative: Moves all extremities appropriately Psych Psych Narrative: Impulsive Activity / Motor Behavior: restless Mood & Affect: flat affect Charges/Coding Visit Charges Inpatient E&M: 74570 Subs Hosp L3
[2022-08-30] MEDS: QUEtiapine 100 MG Tablet 150 MG PO ×2 (10:06→20:57)
[2022-08-30] MEDS: rifAXIMin 550 MG Tablet PO ×2 (10:06→20:57)
[2022-08-30] MEDS: 0.9% Saline Lock 10 ML Syringe IV ×2 (10:06→17:13)
[2022-08-30] MEDS: Furosemide 40 MG/4 ML Vial IV ×2 (10:06→17:13)
[2022-08-30] MEDS: Enoxaparin 40 MG/0.4 ML Syringe SC (10:08)
[2022-08-30 11:01] LABS: Bedside Glucose 149 mg/dL (74-106)
[2022-08-30] MEDS: Acetaminophen 325 MG Tablet 650 MG PO ×3 (11:39→20:57)
--- NOTE | 2022-08-30 13:00 | PCM.PN.HOSP ---
Subjective Subjective Follow-up on acute metabolic encephalopathy/acute DKA/GONSALO/electrolyte imbalances: Patient was seen and examined.? Patient was extubated yesterday, confused, maintained on Precedex drip. Patient is currently off Precedex drip. He remains confused, alert only to self Objective Data Objective Data Vital Signs: Vital Signs Temp Pulse Resp BP Pulse Ox O2 Del Method O2 Flow Rate 101.1 F H 116 H 20 H 120/69 93 Nasal Cannula 2 08/30/22 12:00 08/30/22 12:00 08/30/22 12:00 08/30/22 12:00 08/30/22 12:00 08/30/22 12:00 08/30/22 12:00 FiO2 25 08/29/22 10:00 Oxygen Flow Rate (L/min) 2 Oxygen Delivery Method Nasal Cannula Weight: 67 kg Body Mass Index (BMI) 22.9 Intake & Output: Intake and Output for Last 24 Hours 08/28/22 08/29/22 08/30/22 23:59 23:59 23:59 Intake Total 3728.26 / 3750.06 2518.77 / 2525.02 1190.00 / 1190.00 Output Total 5925 / 6225 4155 / 4155 1050 / 1050 Balance -2196.74 / -2474.94 -1636.23 / -1629.98 140.00 / 140.00 Lab / Micro Data Result Diagrams: 08/30/22 04:15 08/30/22 04:15 Labs: Laboratory Results - last 24 hr 08/29/22 17:28: POC Glucose 84 08/29/22 23:56: POC Glucose 180 H 08/30/22 04:15: WBC 9.7, RBC 4.21 L, Hgb 13.2, Hct 39.1 L, MCV 92.9, MCH 31.4, MCHC 33.8, RDW Std Deviation 40.2, RDW Coeff of Mika 11.9, Plt Count 457 H, MPV 8.4, Immature Gran % (Auto) 0.500, Neut % (Auto) 75.1 H, Lymph % (Auto) 10.0 L, [place] % (Auto) 13.7 H, Eos % (Auto) 0.4, Baso % (Auto) 0.3, Absolute Neuts (auto) 7.3, Absolute Lymphs (auto) 0.97, Nucleated RBC % 0 08/30/22 04:15: Sodium 144, Potassium 3.3 L, Chloride 103, Carbon Dioxide 36.0 H, Anion Gap 5, BUN 28 H, Creatinine 1.54 H, Estim Creat Clear Calc 54.90, Est GFR (MDRD) Af Amer 62, Est GFR (MDRD) Non-Af 51 L, BUN/Creatinine Ratio 18.2, Glucose 126 H, Calcium 9.2, Total Bilirubin 0.60, AST 96 H, ALT 88 H, Alkaline Phosphatase 246 H, Total Protein 6.6, Albumin 2.5 L, Globulin 4.1, Albumin/Globulin Ratio 0.6 L 08/30/22 05:39: POC Glucose 138 H 08/30/22 10:36: POC Glucose 149 H Micro: Microbiology 08/22/22 10:50 Blood Culture (Wb) - Anticubital Right Blood Culture - Final No growth in 5 days. 08/23/22 10:35 Sputum, Induced/Lukens Gram Stain - Final 08/23/22 10:35 Sputum, Induced/Lukens Respiratory Culture - Final Presumptive C albicans Klebsiella oxytoca 08/22/22 10:35 Urine Catheter - [place] Urine Culture - Final Culture exhibits no growth. Physical Exam Narrative Physical exam: General: Alert oriented to self, appears anxious and restless, on 2 L of oxygen HEENT: Atraumatic Oral: Moist Mucosa Neck: Supple Lungs: Diminished to auscultation Cardiovascular: HS I+II, regular, no murmurs Abdomen: Bowel Sounds Present, Soft, Non Tender Extremities: Bilateral leg edema +3 Skin: No rashes, No breakdown Neurological: Grossly intact Psych/Mental Status: Appropriate Assessment & Plan Assessment/Plan (1) Acute respiratory failure: PLAN: Plan 1. Acute encephalopathy, probable acute hepatic encephalopathy, appears to be improving Status post intubation on admission, extubated per family request, reintubated again to obtain further imaging MRI brain as well as EEG unremarkable. Liver ultrasound showed hepatomegaly, gallbladder wall thickening with pericholecystic fluid, negative Serna sign, diffuse ascites. LFTs are also improving Continue lactulose, trend ammonia 2. Acute respiratory failure, unclear etiology, probable acute Klebsiella pneumonia Sputum cultures growing Klebsiella.? Blood and urine cultures have been? negative for 48 hours. Completed 7 days of IV Zosyn Organisation And Methods Analyst following. 3. Shock, unclear etiology, probably septic versus medication side effect Patient was on Levophed transiently, currently off it Blood and urine cultures have been negative for 48 hours Completed IV Zosyn Continue to monitor vitals 4. Acute DKA, in a known type II DM patient. DKA is resolved Blood sugars are uncontrolled over the last 24 hours. HbA1c is 11.8 Continue with Lantus 35 units BID, insulin sliding scale with Q6h blood glucose checks 5. GONSALO, likely prerenal secondary to dehydration, unclear previous baseline Creatinine today is 1.54 from 5.06 on admission Renal ultrasound is unremarkable for obstructive uropathy Nephrology following, continue to trend 6. Hypernatremia, resolved 7. Hypokalemia, replace, recheck in a.m. 8.?Acute fluid overload, responsive to IV Lasix, Continue on IV Lasix, continue to trend 9.? Thrombocytopenia, unclear etiology, resolved, Platelet count is currently 457, will trend 10. DVT PPx- SCDs Charges/Coding Visit Charges Inpatient E&M: 55933 Subs Hosp L2
[2022-08-30] MEDS: Insulin Lispro 100 UNIT/ML INSULN.PEN SC (16:23)
[2022-08-30 16:50] LABS: Bedside Glucose 173 mg/dL (74-106)
[2022-08-30 23:55] LABS: Bedside Glucose 126 mg/dL (74-106)
[2022-08-31] VITALS (24 sets, daily range): BP systolic 122–153; BP diastolic 68–84; PULSE 69–116; RESP 15–25; TEMP 36.5–38.4; O2SAT 89–96
[2022-08-31 04:45] LABS: Absolute Lymphocyte Count 1.19 X10^3/uL (0.83-4.51); Basophil# 0.04 X10^3/uL; Basophil% 0.3 % (0-1); Hematocrit 39.7 % (40-54); Hemoglobin 13.3 g/dL (13.0-16.5); Lymphocyte # 1.19 X10^3/ul (0.83-4.51); Lymphocyte % 7.7 % (19-41); Mean Corp Hgb Conc 33.5 g/dL (32-36); Mean Corpuscular Hgb 31.1 pg (27.0-32.0); Mean Corpuscular Volume 92.8 fL (80-94); Mean Platelet Vol. 8.4 fl (6.2-12.0); Monocyte# 1.12 X10^3/uL; Monocyte% 7.3 % (0-10); NRBC Flagged by Analyzer 0 % (0-5); Neutrophil # 12.95 X10^3/uL (2.7-7.7); Neutrophil % 84.1 % (47-70); Platelet Count 600 K/mm3 (150-450); RBC Distribution Width SD 40.7 fl (35.1-43.9); Red Blood Count 4.28 M/mm3 (4.6-6.2); White Blood Count 15.4 K/mm3 (4.4-11.0)
[2022-08-31 05:16] LABS: ALB/GLOB Ratio 0.6 RATIO (0.9-2.4); AST(SGOT) 56 U/L (15-37); Alanine Aminotransfer ALT/SGPT 72 U/L (16-61); Albumin, Serum 2.6 g/dL (3.2-5.0); Alkaline Phosphatase 216 U/L (45-117); Anion Gap 8 (5-15); BUN 32 mg/dL (7-18); BUN/Creat Ratio 17.9 RATIO (10-20); Calcium,Total 9.5 mg/dL (8.5-10.1); Chloride 105 mmol/L (98-107); Creatinine, Serum 1.79 mg/dL (0.70-1.30); EST Glomerular Filtration Rate 43 mL/min (>60); Est Glom Filt Rate - Afr Amer 52 mL/min (>60); Estimated Creatinine Clearance 46.27 ml/min; Globulin 4.5 g/dL (2.2-4.2); Glucose 158 mg/dL (74-106); Protein, Total 7.1 g/dL (6.4-8.2); Sodium Level 145 mmol/L (136-145)
[2022-08-31 05:41] LABS: Ammonia < 10.0 umol/L (11-32)
[2022-08-31] MEDS: Insulin Glargine-YFGN 100 UNIT/ML Pen 35 UNIT SC ×2 (05:46→16:58)
[2022-08-31] MEDS: Potassium Chloride 20mEq/100mL 20 MEQ/100 ML IV.SOLN. 100 MEQ IV BOLUS ×2 (05:47→06:53)
--- NOTE | 2022-08-31 07:23 | PCM.PN.INT ---
Assessment & Plan Assessment/Plan (1) Diabetic ketoacidosis: PLAN: Plan RECOMMENDATIONS: 1. Wean FiO2 for saturations greater than 90%. Add incentive spirometer 2. Continue with diuretics. Potassium supplementation 3. Monitor off antibiotics 4. Await swallow recommendations 5. Discontinue Precedex, rifaximin and lactulose 6. Continue basal and sliding scale insulin regimen. 7. Continue appropriate ICU prophylaxis. 8. Initiation of beta-teresa 9. Okay to leave the intensive care unit from my perspective. Potential discharge per hospitalist IMPRESSIONS: 1. Acute respiratory failure The patient was intubated as a consequence of profound agitation and associated increased work of breathing, with concern for impending respiratory failure. Patient currently extubated and tolerating well. Patient still with minimal nasal cannula requirements with sleep. We will institute incentive spirometer. Hoarse voice likely from vocal cord edema, but no stridor on exam. 2. Diabetic ketoacidosis Resolved. Likely secondary to outpatient noncompliance with prescribed medical therapy. The patient presented with significant DKA with profound anion gap metabolic acidosis. He has responded appropriately to aggressive fluid resuscitation, electrolyte repletion and continuous insulin infusion with resolution of his DKA. The patient has been transitioned to basal and sliding scale insulin coverage, which will be continued without change. Outpatient follow-up with an police lieutenant patrol will be necessary. Complicated by patient's reported drinking history. Patient is significantly positive over the course of the hospitalization. Patient tolerating diuresis at this time. Potassium will be supplemented 3. Encephalopathy Continue to improve. Most likely metabolic in etiology. Anticipate slow recovery with stabilization of his underlying metabolic derangements. Continue supportive measures as noted above. Ammonia has normalized, so we will discontinue lactulose and rifaximin. Patient is much more directable, so will discontinue Seroquel also 4. Acute kidney injury Appears to be stabilizing. Most likely prerenal in etiology in the setting of significant intravascular volume depletion due to diabetic ketoacidosis. Patient is significantly positive over the course of the hospitalization, but has had some issues with hypernatremia and hyperchloremia. Off IV fluids. Continue to monitor urine output. No current indication for renal replacement therapy. Patient will likely need to follow-up with nephrology as an outpatient 5. Hypernatremia/hypokalemia Resolved. Likely secondary to utilization of normal saline during fluid resuscitation efforts. In light of the aforementioned, the patient has received D5W. We will need to monitor his blood glucose levels closely and make adjustments to his insulin regimen as well. IV fluids have been discontinued. 6. Hepatitis Unclear etiology. Patient reportedly does have a regular alcohol intake. Patient's ammonia level was elevated that may have been leading/contributing to problem #3. Will discontinue lactulose and add rifaximin. Subjective Subjective Patient did well overnight. Patient has not had any fevers since Precedex was discontinued. Patient did have some diarrhea overnight. Patient believes his thinking is more straight. Patient has required supplemental oxygen at minimal doses while sleeping. Patient was able to get up to the chair overnight with nursing. Objective Data Objective Data Vital Signs: Vital Signs Temp Pulse Resp BP Pulse Ox O2 Del Method O2 Flow Rate 38.4 C H 106 H 20 H 130/70 H 94 Nasal Cannula 2 08/31/22 04:00 08/31/22 07:00 08/31/22 07:00 08/31/22 07:00 08/31/22 07:00 08/31/22 07:00 08/31/22 07:00 FiO2 25 08/29/22 10:00 Oxygen Flow Rate (L/min) 2 Oxygen Delivery Method Nasal Cannula Weight: 64.5 kg Body Mass Index (BMI) 22.9 Intake & Output: Intake and Output for Last 24 Hours 08/29/22 08/30/22 08/31/22 23:59 23:59 23:59 Intake Total 2518.77 / 2525.02 1300.00 / 1300.00 100 / 100 Output Total 4155 / 4155 1850 / 2125 650 / 650 Balance -1636.23 / -1629.98 -550.00 / -825.00 -550 / -550 Lab / Micro Data Attestation: I reviewed the patient's lab results. Result Diagrams: 08/31/22 04:25 08/31/22 04:25 Labs: Laboratory Results - last 24 hr 08/30/22 10:36: POC Glucose 149 H 08/30/22 16:22: POC Glucose 173 H 08/30/22 20:55: POC Glucose 126 H 08/31/22 04:25: WBC 15.4 H, RBC 4.28 L, Hgb 13.3, Hct 39.7 L, MCV 92.8, MCH 31.1, MCHC 33.5, RDW Std Deviation 40.7, RDW Coeff of Mika 12.0, Plt Count 600 H, MPV 8.4, Immature Gran % (Auto) 0.600, Neut % (Auto) 84.1 H, Lymph % (Auto) 7.7 L, [place] % (Auto) 7.3, Eos % (Auto) 0.0, Baso % (Auto) 0.3, Absolute Neuts (auto) 13.0 H, Absolute Lymphs (auto) 1.19, Nucleated RBC % 0 08/31/22 04:25: Sodium 145, Potassium 3.0 L, Chloride 105, Carbon Dioxide 32.0, Anion Gap 8, BUN 32 H, Creatinine 1.79 H, Estim Creat Clear Calc 46.27, Est GFR (MDRD) Af Amer 52 L, Est GFR (MDRD) Non-Af 43 L, BUN/Creatinine Ratio 17.9, Glucose 158 H, Calcium 9.5, Total Bilirubin 0.50, AST 56 H, ALT 72 H, Alkaline Phosphatase 216 H, Total Protein 7.1, Albumin 2.6 L, Globulin 4.5 H, Albumin/Globulin Ratio 0.6 L 08/31/22 04:25: Ammonia < 10.0 L Micro: Microbiology 08/22/22 10:50 Blood Culture (Wb) - Anticubital Right Blood Culture - Final No growth in 5 days. 08/23/22 10:35 Sputum, Induced/Lukens Gram Stain - Final 08/23/22 10:35 Sputum, Induced/Lukens Respiratory Culture - Final Presumptive C albicans Klebsiella oxytoca 08/22/22 10:35 Urine Catheter - [place] Urine Culture - Final Culture exhibits no growth. Physical Exam Const alert Constitutional Narrative: Anasarca improved. More interactive today. Hoarse voice noted. Much more directable. HEENT normocephalic and head/scalp atraumatic Eyes PERRL, EOMs intact bilaterally and conjunctivae normal Eyes Narrative: Scleral injection noted, but improved. Neck supple General: trachea midline Chest inspection of chest normal Resp normal respiratory effort and no use of accessory muscles Auscultation: Negative for rales, rhonchi or wheezes Cardio regular rhythm, S1 normal heart sound, S2 normal heart sound, no murmurs, no rub and no gallops Rate: tachycardic GI normal to inspection, nondistended, normoactive bowel sounds Extremity Extremity Narrative: Edema improving General Extremity: edema Skin no rashes or lesions noted Skin Narrative: Surjit appearance Neuro CN's II-XII intact bilaterally, moves all extremities and no focal motor deficits Neuro Narrative: Moves all extremities appropriately Psych Mood & Affect: flat affect Charges/Coding Visit Charges Inpatient E&M: 94658 Subs Hosp L2
[2022-08-31 08:00] LABS: Bedside Glucose 140 mg/dL (74-106)
[2022-08-31] MEDS: Enoxaparin 40 MG/0.4 ML Syringe SC (08:49)
[2022-08-31] MEDS: Menthol/Lanolin/Calamine/Znox 113 GM Tube 1 APPLIC TOPICAL ×2 (08:49→20:23)
[2022-08-31] MEDS: CHLORHEXIDINE GLUC 2% CLOTH 1 EACH TOWELETTE TOPICAL (08:49)
[2022-08-31] MEDS: Furosemide 40 MG/4 ML Vial IV (08:50)
[2022-08-31] MEDS: Metoprolol Tartrate 50 MG Tablet PO ×2 (08:57→20:28)
--- NOTE | 2022-08-31 09:37 | PCM.PN.REN ---
Subjective Subjective Following for GONSALO Resting in bed. at bedside. No overnight events. No complaints Objective Data Objective Data Vital Signs: Vital Signs Temp Pulse Resp BP Pulse Ox O2 Del Method O2 Flow Rate 101.1 F H 100 18 150/84 H 95 Nasal Cannula 2 08/31/22 09:00 08/31/22 09:00 08/31/22 09:00 08/31/22 09:00 08/31/22 09:00 08/31/22 09:00 08/31/22 09:00 FiO2 25 08/29/22 10:00 Oxygen Flow Rate (L/min) 2 Oxygen Delivery Method Nasal Cannula Weight: 64.5 kg Body Mass Index (BMI) 22.9 Intake & Output: Intake and Output for Last 24 Hours 08/29/22 08/30/22 08/31/22 23:59 23:59 23:59 Intake Total 2518.77 / 2525.02 1300.00 / 1300.00 200 / 200 Output Total 4155 / 4155 1850 / 2125 650 / 650 Balance -1636.23 / -1629.98 -550.00 / -825.00 -450 / -450 Lab / Micro Data Result Diagrams: 08/31/22 04:25 08/31/22 04:25 Labs: Laboratory Results - last 24 hr 08/30/22 10:36: POC Glucose 149 H 08/30/22 16:22: POC Glucose 173 H 08/30/22 20:55: POC Glucose 126 H 08/31/22 04:25: WBC 15.4 H, RBC 4.28 L, Hgb 13.3, Hct 39.7 L, MCV 92.8, MCH 31.1, MCHC 33.5, RDW Std Deviation 40.7, RDW Coeff of Mika 12.0, Plt Count 600 H, MPV 8.4, Immature Gran % (Auto) 0.600, Neut % (Auto) 84.1 H, Lymph % (Auto) 7.7 L, [place] % (Auto) 7.3, Eos % (Auto) 0.0, Baso % (Auto) 0.3, Absolute Neuts (auto) 13.0 H, Absolute Lymphs (auto) 1.19, Nucleated RBC % 0 08/31/22 04:25: Sodium 145, Potassium 3.0 L, Chloride 105, Carbon Dioxide 32.0, Anion Gap 8, BUN 32 H, Creatinine 1.79 H, Estim Creat Clear Calc 46.27, Est GFR (MDRD) Af Amer 52 L, Est GFR (MDRD) Non-Af 43 L, BUN/Creatinine Ratio 17.9, Glucose 158 H, Calcium 9.5, Total Bilirubin 0.50, AST 56 H, ALT 72 H, Alkaline Phosphatase 216 H, Total Protein 7.1, Albumin 2.6 L, Globulin 4.5 H, Albumin/Globulin Ratio 0.6 L 08/31/22 04:25: Ammonia < 10.0 L 08/31/22 07:39: POC Glucose 140 H Micro: Microbiology 08/22/22 10:50 Blood Culture (Wb) - Anticubital Right Blood Culture - Final No growth in 5 days. 08/23/22 10:35 Sputum, Induced/Lukens Gram Stain - Final 08/23/22 10:35 Sputum, Induced/Lukens Respiratory Culture - Final Presumptive C albicans Klebsiella oxytoca 08/22/22 10:35 Urine Catheter - [place] Urine Culture - Final Culture exhibits no growth. Physical Exam Narrative Alert and oriented x3 no obvious distress no JVD s1s2 no murmurs lungs clear abdomen soft no edema Assessment & Plan Assessment/Plan (1) Diabetic ketoacidosis: (2) Acute kidney failure: (3) Hypernatremia: (4) Acute respiratory failure: PLAN: Plan - Creatinine on admission was 5.06. Improved to 1.5 over last few days, today creatinine is 1.79 mg/dL. Reviewed labs from PCP: Serum creatinine on 06/25/2022 was 1.03 mg/dL. Volume status is okay. Significantly positive fluid balance, currently on Lasix IV twice daily with good urine output. Chest x-ray does not look overloaded. No acute indications for renal replacement therapy. -Reviewed with patient importance of good blood sugar control, good diabetic control. Avoiding nephrotoxic agents (patient had been taking NSAIDs). Urine protein creatinine ratio 1.2 g. We will arrange for follow-up in Central office. - Acidosis. Initially due to diabetic ketoacidosis. Better. Currently on subcutaneous insulin. - bps acceptable on Lasix and metoprolol.
--- NOTE | 2022-08-31 11:35 | PCM.PN.HOSP ---
Subjective Subjective Follow-up on acute metabolic encephalopathy/acute DKA/GONSALO/electrolyte imbalances: Patient was seen and examined.? Patient is alert oriented x3. Off Precedex drip and Seroquel. He is on 2 L of oxygen. He denies any new complaints. Objective Data Objective Data Vital Signs: Vital Signs Temp Pulse Resp BP Pulse Ox O2 Del Method O2 Flow Rate 101.1 F H 100 18 150/84 H 95 Nasal Cannula 2 08/31/22 09:00 08/31/22 09:00 08/31/22 09:00 08/31/22 09:00 08/31/22 09:00 08/31/22 09:00 08/31/22 09:00 FiO2 25 08/29/22 10:00 Oxygen Flow Rate (L/min) 2 Oxygen Delivery Method Nasal Cannula Weight: 64.5 kg Body Mass Index (BMI) 22.9 Intake & Output: Intake and Output for Last 24 Hours 08/29/22 08/30/22 08/31/22 23:59 23:59 23:59 Intake Total 2518.77 / 2525.02 1300.00 / 1300.00 310 / 310 Output Total 4155 / 4155 1850 / 2125 650 / 650 Balance -1636.23 / -1629.98 -550.00 / -825.00 -340 / -340 Lab / Micro Data Result Diagrams: 08/31/22 04:25 08/31/22 04:25 Labs: Laboratory Results - last 24 hr 08/30/22 16:22: POC Glucose 173 H 08/30/22 20:55: POC Glucose 126 H 08/31/22 04:25: WBC 15.4 H, RBC 4.28 L, Hgb 13.3, Hct 39.7 L, MCV 92.8, MCH 31.1, MCHC 33.5, RDW Std Deviation 40.7, RDW Coeff of Mika 12.0, Plt Count 600 H, MPV 8.4, Immature Gran % (Auto) 0.600, Neut % (Auto) 84.1 H, Lymph % (Auto) 7.7 L, [place] % (Auto) 7.3, Eos % (Auto) 0.0, Baso % (Auto) 0.3, Absolute Neuts (auto) 13.0 H, Absolute Lymphs (auto) 1.19, Nucleated RBC % 0 08/31/22 04:25: Sodium 145, Potassium 3.0 L, Chloride 105, Carbon Dioxide 32.0, Anion Gap 8, BUN 32 H, Creatinine 1.79 H, Estim Creat Clear Calc 46.27, Est GFR (MDRD) Af Amer 52 L, Est GFR (MDRD) Non-Af 43 L, BUN/Creatinine Ratio 17.9, Glucose 158 H, Calcium 9.5, Total Bilirubin 0.50, AST 56 H, ALT 72 H, Alkaline Phosphatase 216 H, Total Protein 7.1, Albumin 2.6 L, Globulin 4.5 H, Albumin/Globulin Ratio 0.6 L 08/31/22 04:25: Ammonia < 10.0 L 08/31/22 07:39: POC Glucose 140 H Micro: Microbiology 08/22/22 10:50 Blood Culture (Wb) - Anticubital Right Blood Culture - Final No growth in 5 days. 08/23/22 10:35 Sputum, Induced/Lukens Gram Stain - Final 08/23/22 10:35 Sputum, Induced/Lukens Respiratory Culture - Final Presumptive C albicans Klebsiella oxytoca 08/22/22 10:35 Urine Catheter - [place] Urine Culture - Final Culture exhibits no growth. Physical Exam Narrative Physical exam: General: Alert oriented x3, not pale, not jaundiced, on 2 L of oxygen HEENT: Atraumatic Oral: Moist Mucosa Neck: Supple Lungs: Diminished to auscultation Cardiovascular: HS I+II, regular, no murmurs Abdomen: Bowel Sounds Present, Soft, Non Tender Extremities: Bilateral leg edema +3 Skin: No rashes, No breakdown Neurological: Grossly intact Psych/Mental Status: Appropriate Assessment & Plan Assessment/Plan (1) Acute respiratory failure: PLAN: Plan 1. Acute encephalopathy, probable acute hepatic encephalopathy, resolved Extubated on 08/29/2022 MRI brain as well as EEG unremarkable. Liver ultrasound showed hepatomegaly, gallbladder wall thickening with pericholecystic fluid, negative Serna sign, diffuse ascites. Will monitor off Seroquel, rifaximin, paroxetine 2. Acute respiratory failure, unclear etiology, probable acute Klebsiella pneumonia Sputum cultures growing Klebsiella.? Blood and urine cultures have been? negative for 48 hours. Completed 7 days of IV Zosyn 3. Shock, unclear etiology, probably septic versus medication side effect, resolved Blood and urine cultures have been negative for 48 hours Completed IV Zosyn 4. Acute DKA, in a known type II DM patient. DKA is resolved Blood sugars are well controlled. HbA1c is 11.8 Continue with Lantus 35 units BID, insulin sliding scale with Q6h blood glucose checks 5. GONSALO, likely prerenal secondary to dehydration, unclear previous baseline Creatinine today is 1.79 from 5.06 on admission Renal ultrasound is unremarkable for obstructive uropathy Nephrology following, continue to trend 6. Hypokalemia, replaced, recheck in a.m. 7.?Acute fluid overload, resolving Switch to Lasix 40 mg p.o. twice daily 8.? Thrombocytopenia, unclear etiology, resolved, 9. DVT PPx- SCDs, early ambulation Charges/Coding Visit Charges Inpatient E&M: 84373 [facility] Hosp L1
[2022-08-31 12:00] LABS: Bedside Glucose 125 mg/dL (74-106)
--- NOTE | 2022-08-31 16:37 | SP.MBSS_ITS ---
Modified Barium Swallow - Patient Information Study Date: 08/31/22 Study Time: 15:30 Direct Billable Minutes: 130 Total Minutes procedure & reportin Diagnosis: oropharyngeal dysphagia R13.12 Referring Physician: Edil Meredith Reason for Referral: Pt. referred for MBSS due to overt s/s of aspiration with diet trials and to objectively determine least restrictive diet and swallow function. Medical History: DANIAL GARCIA, is a 52 M who presents to the hospital with altered mental status. He cannot provide much history cements the history was obtained by the and chart review. He has been having some nausea and vomiting for the last several days and has not taken his insulin, for at least the last 24 hours according to the . She stated that his generalized illness started about 2 days ago and he has been slowly getting worse. He is a type I diabetic and he is not in our computer system so we do not have any baseline labs. Medical History (Updated 08/21/22 @ 13:54 by Billy Whelan MD) Santos's palsy Diabetes Current Diet Ordered: Easy to Chew, NO LIQIUDS - Supervision/Assist feed Dentition: WNL Mental Status: WNL Respiratory Status: Oxygenating on Room Air - Penetration-Aspiration Scale Penetration-Aspiration Scale: OBJECTIVE ASSESSMENT OF SWALLOW FUNCTION (QUANTITATIVE ? PER TRIAL): PENETRATION / ASPIRATION SCALE (WOOTEN): 1 = does not enter airway 2 = enters airway/above vocal folds/ejected 3 = enters airway/above vocal folds/not ejected 4 = enters airway/contacts vocal folds/ejected 5 = enters airway/contacts vocal folds/not ejected 6 = enters airway/below vocal folds/ejected 7 = enters airway/below vocal folds/not ejected despite effort 8 = enters airway/below vocal folds/no effort - Penetration-Aspiration Scale Score Thin Liquid via teaspoon Result: 5= enters airways/contacts vocal folds/not ejected Thin Liquid via teaspoon Trial 2 Result: 1= does not enter airway Thin Liquid via small single sip from cup Result: 7= enters airways/below vocal folds/not ejected despite effort - cough following swallow Thin Liquid via small single sip from cup Trial 2 Result: 3= enters airways/above vocal folds/not ejected Thin Liquid via single sip from straw Result: 7= enters airways/below vocal folds/not ejected despite effort - cough after swallow [place] Thick Liquid via small single sip from cup Result: 5= enters airways/contacts vocal folds/not ejected - delayed cough following swallow [place] Thick Liquid via small single sip from cup Trial 2 Result: 3= enters airways/above vocal folds/not ejected [place] Thick Liquid via small single sip from cup Result: 3= enters airways/above vocal folds/not ejected [place] Thick Liquid via teaspoon Result: 3= enters airways/above vocal folds/not ejected - delayed cough following 3rd swallow of single bolus Pudding via teaspoon Result: 3= enters airways/above vocal folds/not ejected - significant residue in valleculae following trial and unable to clear with multiple swallows. delayed cough following bolus; pt. stated texture made him gag Pudding Result: 1= does not enter airway - esophageal scan completed Cookie via teaspoon Result: 1= does not enter airway - 09/02 Loorna Doone trialed, pt. presented with decreased mastication of bolus and swallowed incomplete masticated piece of cookie which appeared to get stuck in valleculae and cleared with re-swallow and thin tsp trial Thin Liquid via teaspoon Effortful swallow Trial 3 Result: 1= does not enter airway Thin Liquid via teaspoon Chin tuck Trial 4 Result: 1= does not enter airway - Oral Phase Labial Seal: Interlabial escape, no progression to anterior lip Tongue Control During Bolus Hold: Cohesive bolus between tongue to palatal seal Bolus Preparation/Mastication: Disorganized chewing/mashing with solid pieces of bolus unchewed Bolus Transport/Lingual Motion: Repetitive/disorganized tongue motion Oral Residue: Majority of bolus remaining - Pharyngeal Phase Initiation of Pharyngeal Swallow: Bolus head in pyriforms Soft Palate Elevation: No bolus between soft palate and pharyngeal wall Laryngeal Elevation: Partial superior movement thyroid cart/partial apprx aryt- epig petiole Anterior Hyoid Excursion: Partial anterior movement Epiglottic Movement: No inversion - partial inversion at the beginning of MBSS with thin liquid textures, inversion decreased as study progressed to honey, puree textures Laryngeal Vestibule Closure at Height of Swallow: Incomplete; narrow column of air/contrast in laryngeal vestibule Pharyngeal Stripping Wave: Absent Pharyngoesophageal Segment Opening: Parital distension and partial duration; parital obstruction of flow Tongue Base Retraction: Narrow column of contrast between tongue base & post. pharyngeal wall Pharyngeal Residue: Collection of residue within or on pharyngeal structures - collection of residue primarily in valleculae, with mild to moderate residue along pyriform sinuses - Esophageal Phase Esophageal Clearance: Esophageal retention - Treatment Strategies Effects of treatment strategies attemped:: Swallow strategies of multiple swallow and effortful swallow were trialed with all textures due to oral and pharyngeal residuals with mild improvement in residuals. However, a moderate amount of residuals remained with puree and cookie trials. Chin tuck was trialed due to penetration and aspiration and residuals. With chin tuck, no aspiration/penetration was observed. However, view was limited due to shoulder obstructing view of laryngeal vestibule. - Diagnosis/Impression Diagnosis: severe oropharyngeal dysphagia R 13.12 Impression: Pt. presents with oral phase dysphagia characterized by decreased labial seal, mastication, and anterior-posterior transfer resulting in: - anterior leakage to lips - decreased clearance of bolus resulting in significant oral residuals Pt. presents with pharyngeal dysphagia characterized by decreased tongue base retraction, delayed swallow initiation, decreased laryngeal elevation, anterior hyoid movement and decreased pharyngeal constriction resulting in: - premature spillage to the valleculae and pyriform sinuses - decreased epiglottic deflection resulting in decreased airway protection - residuals in valleculae and pyriform sinsus - penetration and aspiration Pt. presented with immediate cough and/or a delayed cough with penetration and aspiration. However, pt. was unable to evacuate penetrated/aspirated material with coughing attempt. Pt. is suspected of penetrating and/or aspirating pharyngeal residuals after/between swallows due to delayed cough and increase in trace shadow in the laryngeal vestibule being present before next trial given. Pt. also presented with hoarse/raspy vocal quality. Spouse was present for the MBSS and pt. and spouse was educated and shown concerns on the video by DIVISION CHIEF. DIVISION CHIEF followed-up with family following MBSS and educated pt. and spouse on recommendations following study. - Recommendations Diet: Honey-thick Liquids - via tsp only Comment: discontinue po intake with increased coughing following swallows, pt. would benefit from small amounts (5-8 tsp) of po honey thick trials at a time. Compensatory Strategies: Small Sips, No Straws, Liquid by Teaspoon Only, Feed only when alert, Multiple Swallows, Sitting upright, Remain sitting upright for 30 minutes after PO intake Supervision: 1:1 Close Supervision Recommend Repeat Modified Barium Swallow: TBD - Repeat MBSS as strength improves, overt signs and symptoms of aspiration decrease and is recommended by DIVISION CHIEF Need for Skilled Speech Therapy Services: Yes Comment: Skilled ST services to address continued diet texture analysis and tolerance of po diet, oropharyngeal exercises and training in safe swallow strategies to decrease risk of aspiration/penetration. Education Completed: 1. Described result of evaluation., 2. Pt understands evaluation & agrees with goals and treatment plan., 4. Family/caregivers understand evaluation & agree w/ goals & tx plan. - Status Active ST Patient: Active
[2022-08-31] MEDS: Furosemide 40 MG Tablet PO (16:58)
[2022-08-31] MEDS: Insulin Lispro 100 UNIT/ML INSULN.PEN SC (16:58)
--- NOTE | 2022-08-31 17:00 | CASEMGMT ---
RADHA GRIGSBY follow-up: RADHA GRIGSBY to pt's bedside. Pt's and parents present. Discussed home health versus outpt therapy including pros and cons. List from [facility] of home health care providers in network with pt's insurance and consistent with pt's geographic area and medical needs and including quality and resource use data provided. Pt and to discuss and determine after pt participates in tx on Saturday. Will continue to follow for determination of tx LOC needs. Johnathan Albrecht RN CM
[2022-08-31 17:16] LABS: Bedside Glucose 173 mg/dL (74-106)
[2022-08-31] MEDS: Albuterol 2.5 MG/3 ML VIAL.NEB. INHALATION (19:45)
[2022-08-31] MEDS: 0.9% Saline Lock 10 ML Syringe IV (20:22)
[2022-08-31 20:51] LABS: Bedside Glucose 125 mg/dL (74-106)
[2022-09-01] VITALS (12 sets, daily range): BP systolic 125–134; BP diastolic 72–86; PULSE 65–91; RESP 18–19; TEMP 36.5–36.8; O2SAT 93–100
[2022-09-01 05:14] LABS: Absolute Lymphocyte Count 1.42 X10^3/uL (0.83-4.51); Absolute Neutrophil Count 7.3 X10^3/uL (2.0-7.7); Basophil# 0.05 X10^3/uL; Basophil% 0.5 % (0-1); Hematocrit 39.1 % (40-54); Lymphocyte # 1.42 X10^3/ul (0.83-4.51); Lymphocyte % 14.9 % (19-41); Mean Corp Hgb Conc 33.2 g/dL (32-36); Mean Corpuscular Hgb 31.1 pg (27.0-32.0); Mean Corpuscular Volume 93.5 fL (80-94); Mean Platelet Vol. 8.3 fl (6.2-12.0); Monocyte% 8.4 % (0-10); NRBC Flagged by Analyzer 0 % (0-5); Neutrophil # 7.26 X10^3/uL (2.7-7.7); Neutrophil % 75.9 % (47-70); Platelet Count 637 K/mm3 (150-450); RBC Distribution Width CV 11.9 % (11.6-14.6); Red Blood Count 4.18 M/mm3 (4.6-6.2); White Blood Count 9.6 K/mm3 (4.4-11.0)
[2022-09-01 05:47] LABS: ALB/GLOB Ratio 0.6 RATIO (0.9-2.4); AST(SGOT) 30 U/L (15-37); Alanine Aminotransfer ALT/SGPT 57 U/L (16-61); Albumin, Serum 2.6 g/dL (3.2-5.0); Alkaline Phosphatase 182 U/L (45-117); Anion Gap 7 (5-15); BUN 37 mg/dL (7-18); BUN/Creat Ratio 22.2 RATIO (10-20); Calcium,Total 9.4 mg/dL (8.5-10.1); Chloride 108 mmol/L (98-107); Creatinine, Serum 1.67 mg/dL (0.70-1.30); EST Glomerular Filtration Rate 46 mL/min (>60); Est Glom Filt Rate - Afr Amer 56 mL/min (>60); Estimated Creatinine Clearance 47.89 ml/min; Globulin 4.5 g/dL (2.2-4.2); Glucose 50 mg/dL (74-106); Magnesium 2.8 mg/dL (1.6-2.6); Potassium 2.7 mmol/L (3.5-5.1); Protein, Total 7.1 g/dL (6.4-8.2); Sodium Level 149 mmol/L (136-145)
[2022-09-01 06:30] LABS: Bedside Glucose 61 mg/dL (74-106)
[2022-09-01] MEDS: Potassium Chloride 20mEq/100mL 20 MEQ/100 ML IV.SOLN. 100 MEQ IV BOLUS ×2 (06:33→08:16)
[2022-09-01] MEDS: Insulin Glargine-YFGN 100 UNIT/ML Pen 10 UNIT SC ×2 (06:41→17:17)
[2022-09-01 06:55] LABS: Bedside Glucose 74 mg/dL (74-106)
[2022-09-01] MEDS: Albuterol 2.5 MG/3 ML VIAL.NEB. INHALATION (07:08)
--- NOTE | 2022-09-01 07:17 | PN.CC_ITS ---
Assessment & Plan Assessment/Plan (1) Diabetic ketoacidosis: PLAN: Plan RECOMMENDATIONS: 1. Continue incentive spirometer 2. Monitor off diuretics. Potassium supplementation 3. Monitor off antibiotics 4. Await swallow work-up 5. Decrease basal insulin. Continue sliding scale 6. Hemodynamically stable on room air. Will sign off from a pulmonary/critical care perspective IMPRESSIONS: 1. Acute respiratory failure The patient was intubated as a consequence of profound agitation and associated increased work of breathing, with concern for impending respiratory failure. Patient currently extubated and tolerating well. Patient with no nasal cannula requirements with sleep. We will continue incentive spirometer until patient is back to baseline activity. Hoarse voice likely from vocal cord edema, but no stridor on exam. Patient currently hemodynamically stable on room air. Will sign off from a critical care perspective 2. Diabetic ketoacidosis Resolved. Likely secondary to outpatient noncompliance with prescribed medical therapy. The patient presented with significant DKA with profound anion gap metabolic acidosis. He has responded appropriately to aggressive fluid resuscitation, electrolyte repletion and continuous insulin infusion with resolution of his DKA. Potassium supplementation has been ordered. Patient with decreased p.o. secondary to modify diet. We will decrease basal insulin. 3. Encephalopathy Resolved. Most likely metabolic in etiology. Anticipate slow recovery with stabilization of his underlying metabolic derangements. Continue supportive measures as noted above. Ammonia has normalized, so we will d iscontinue lactulose and rifaximin. Patient is much more directable, so will discontinue Seroquel also 4. Acute kidney injury Appears to be stabilizing. Most likely prerenal in etiology in the setting of significant intravascular volume depletion due to diabetic keto acidosis. Patient is significantly positive over the course of the hospitalization, but has had some issues with hypernatremia and hyperchloremia. Off IV fluids. Continue to monitor urine output. No current indication for renal replacement therapy. Patient will likely need to follow-up with [facility] as an outpatient 5. Hypernatremia/hypokalemia Resolved. Likely secondary to utilization of normal saline during fluid resuscitation efforts. In light of the aforementioned, the patient has received D5W. We will need to monitor his blood glucose levels closely and make adjustments to his insulin regimen as well. IV fluids have been discontinued. 6. Hepatitis Unclear etiology. Patient reportedly does have a regular alcohol intake. Patient's ammonia level was elevated that may have been leading/contributing to problem #3. Tolerating discontinuation of lactulose and rifaximin Subjective Subjective Patient did well overnight. Patient did have some hypoglycemia this morning, but has been placed on a modified diet secondary to swallow concerns. Patient's mentation has significantly improved. Patient states he has noticed some issues with swallowing for several years but did not think it was that bad. Objective Data Objective Data Vital Signs: Vital Signs Temp Pulse Resp BP Pulse Ox O2 Del Method O2 Flow Rate 36.6 C 83 18 134/72 H 95 Room Air 2 09/01/22 05:00 09/01/22 05:00 09/01/22 05:00 09/01/22 05:00 09/01/22 05:00 09/01/22 05:00 08/31/22 11:43 FiO2 25 08/29/22 10:00 Oxygen Flow Rate (L/min) 2 Oxygen Delivery Method Room Air Weight: 64.7 kg Body Mass Index (BMI) 22.9 Intake & Output: Intake and Output for Last 24 Hours 08/30/22 08/31/22 09/01/22 23:59 23:59 23:59 Intake Total 1300.00 / 1300.00 470 / 470 Output Total 1850 / 2125 1750 / 1750 Balance -550.00 / -825.00 -1280 / -1280 Lab / Micro Data Attestation: I reviewed the patient's lab results. Result Diagrams: 09/01/22 05:00 09/01/22 05:00 Labs: Laboratory Results - last 24 hr 08/31/22 07:39: POC Glucose 140 H 08/31/22 11:25: POC Glucose 125 H 08/31/22 16:52: POC Glucose 173 H 08/31/22 20:21: POC Glucose 125 H 09/01/22 05:00: WBC 9.6, RBC 4.18 L, Hgb 13.0, Hct 39.1 L, MCV 93.5, MCH 31.1, MCHC 33.2, RDW Std Deviation 41.0, RDW Coeff of Mika 11.9, Plt Count 637 H, MPV 8.3, Immature Gran % (Auto) 0.300, Neut % (Auto) 75.9 H, Lymph % (Auto) 14.9 L, [place] % (Auto) 8.4, Eos % (Auto) 0.0, Baso % (Auto) 0.5, Absolute Neuts (auto) 7.3, Absolute Lymphs (auto) 1.42, Nucleated RBC % 0 09/01/22 05:00: Sodium 149 H, Potassium 2.7 L*, Chloride 108 H, Carbon Dioxide 34.0 H, Anion Gap 7, BUN 37 H, Creatinine 1.67 H, Estim Creat Clear Calc 47.89, Est GFR (MDRD) Af Amer 56 L, Est GFR (MDRD) Non-Af 46 L, BUN/Creatinine Ratio 22.2 H, Glucose 50 L, Calcium 9.4, Magnesium 2.8 H, Total Bilirubin 0.50, AST 30, ALT 57, Alkaline Phosphatase 182 H, Total Protein 7.1, Albumin 2.6 L, Globulin 4.5 H, Albumin/Globulin Ratio 0.6 L 09/01/22 06:04: POC Glucose 61 L 09/01/22 06:32: POC Glucose 74 Micro: Microbiology 08/22/22 10:50 Blood Culture (Wb) - Anticubital Right Blood Culture - Final No growth in 5 days. 08/23/22 10:35 Sputum, Induced/Lukens Gram Stain - Final 08/23/22 10:35 Sputum, Induced/Lukens Respiratory Culture - Final Presumptive C albicans Klebsiella oxytoca 08/22/22 10:35 Urine Catheter - [place] Urine Culture - Final Culture exhibits no growth. Physical Exam Const alert Constitutional Narrative: Anasarca resolved. More interactive today. Hoarse voice improving. Much more directable. HEENT normocephalic and head/scalp atraumatic Eyes PERRL, EOMs intact bilaterally and conjunctivae normal Eyes Narrative: Scleral injection noted, but improved. Neck supple General: trachea midline Chest inspection of chest normal Resp normal respiratory effort and no use of accessory muscles Auscultation: Negative for rales, rhonchi or wheezes Cardio regular rate, regular rhythm, S1 normal heart sound, S2 normal heart sound, no murmurs, no rub and no gallops GI normal to inspection, nondistended, normoactive bowel sounds Extremity no clubbing, cyanosis or edema Extremity Narrative: Edema resolved Skin no rashes or lesions noted Skin Narrative: Surjit appearance improving Neuro oriented x3, CN's II-XII intact bilaterally, moves all extremities and no focal motor deficits Psych cooperative and affect normal Charges/Coding Visit Charges Inpatient E&M: 60939 Subs Hosp L3
[2022-09-01] MEDS: Metoprolol Tartrate 50 MG Tablet PO ×2 (08:21→21:50)
[2022-09-01] MEDS: Enoxaparin 40 MG/0.4 ML Syringe SC (08:24)
[2022-09-01] MEDS: Potassium Chloride Oral Tablet 20 MEQ 40 MEQ PO ×2 (08:24→17:14)
[2022-09-01] MEDS: Menthol/Lanolin/Calamine/Znox 113 GM Tube 1 APPLIC TOPICAL ×2 (08:25→21:47)
[2022-09-01] MEDS: Insulin Lispro 100 UNIT/ML INSULN.PEN SC ×2 (12:01→17:15)
[2022-09-01 12:05] LABS: Bedside Glucose 459 mg/dL (74-106)
--- NOTE | 2022-09-01 13:42 | PN.HOSP_ITS ---
Subjective Subjective Follow-up on acute metabolic encephalopathy/acute DKA/GONASLO/electrolyte imbalances: Patient was seen and examined.?Patient is alert oriented x3.?He had an episode of hypoglycemia and Lantus dose was decreased. Patient however was more than 400 and blood sugar on Accu-Cheks at lunchtime. He still on the modified diet. Discussed with patient and at the bedside that we will have to have his swallowing re-assessed by speech therapy before discharge. Objective Data Objective Data Vital Signs: Vital Signs Temp Pulse Resp BP Pulse Ox O2 Del Method O2 Flow Rate 98.3 F 76 19 H 132/86 H 93 Room Air 2 09/01/22 08:25 09/01/22 11:00 09/01/22 08:25 09/01/22 08:25 09/01/22 08:25 09/01/22 08:36 08/31/22 11:43 FiO2 25 08/29/22 10:00 Oxygen Flow Rate (L/min) 2 Oxygen Delivery Method Room Air Weight: 64.7 kg Body Mass Index (BMI) 22.9 Intake & Output: Intake and Output for Last 24 Hours 08/30/22 08/31/22 09/01/22 23:59 23:59 23:59 Intake Total 1300.00 / 1300.00 470 / 470 310 / 310 Output Total 1850 / 2125 1750 / 1750 Balance -550.00 / -825.00 -1280 / -1280 310 / 310 Lab / Micro Data Result Diagrams: 09/01/22 05:00 09/01/22 05:00 Labs: Laboratory Results - last 24 hr 08/31/22 16:52: POC Glucose 173 H 08/31/22 20:21: POC Glucose 125 H 09/01/22 05:00: WBC 9.6, RBC 4.18 L, Hgb 13.0, Hct 39.1 L, MCV 93.5, MCH 31.1, MCHC 33.2, RDW Std Deviation 41.0, RDW Coeff of Mika 11.9, Plt Count 637 H, MPV 8.3, Immature Gran % (Auto) 0.300, Neut % (Auto) 75.9 H, Lymph % (Auto) 14.9 L, [place] % (Auto) 8.4, Eos % (Auto) 0.0, Baso % (Auto) 0.5, Absolute Neuts (auto) 7.3, Absolute Lymphs (auto) 1.42, Nucleated RBC % 0 09/01/22 05:00: Sodium 149 H, Potassium 2.7 L*, Chloride 108 H, Carbon Dioxide 34.0 H, Anion Gap 7, BUN 37 H, Creatinine 1.67 H, Estim Creat Clear Calc 47.89, Est GFR (MDRD) Af Amer 56 L, Est GFR (MDRD) Non-Af 46 L, BUN/Creatinine Ratio 22.2 H, Glucose 50 L, Calcium 9.4, Magnesium 2.8 H, Total Bilirubin 0.50, AST 30, ALT 57, Alkaline Phosphatase 182 H, Total Protein 7.1, Albumin 2.6 L, Globulin 4.5 H, Albumin/Globulin Ratio 0.6 L 09/01/22 06:04: POC Glucose 61 L 09/01/22 06:32: POC Glucose 74 09/01/22 11:46: POC Glucose 459 H* Micro: Microbiology 08/22/22 10:50 Blood Culture (Wb) - Anticubital Right Blood Culture - Final No growth in 5 days. 08/23/22 10:35 Sputum, Induced/Lukens Gram Stain - Final 08/23/22 10:35 Sputum, Induced/Lukens Respiratory Culture - Final Presumptive C albicans Klebsiella oxytoca 08/22/22 10:35 Urine Catheter - [place] Urine Culture - Final Culture exhibits no growth. Physical Exam Narrative Physical exam: General: Alert oriented x3, not pale, off oxygen HEENT: Atraumatic Oral: Moist Mucosa Neck: Supple Lungs: Diminished to auscultation Cardiovascular: HS I+II, regular, no murmurs Abdomen: Bowel Sounds Present, Soft, Non Tender Extremities: Bilateral leg edema, trace Skin: No rashes, No breakdown Neurological: Grossly intact Psych/Mental Status: Appropriate Assessment & Plan Assessment/Plan (1) Acute respiratory failure: PLAN: Plan 1. Severe oropharyngeal dysphagia, being followed by speech therapy, on modified barium swallow, Currently on honey thick liquids 2. Severe hypokalemia, replace, recheck in a.m. 3. Acute encephalopathy, probable acute hepatic encephalopathy, resolved Extubated on 08/29/2022 MRI brain as well as EEG unremarkable. Liver ultrasound showed hepatomegaly, gallbladder wall thickening with pericholecystic fluid, negative Serna sign, diffuse ascites. Off Seroquel, rifaximin, paroxetine 4. Acute respiratory failure, unclear etiology, probable acute Klebsiella pneumonia, resolved Sputum cultures growing Klebsiella.?Blood and urine cultures negative. Completed 7 days of IV Zosyn 5. Shock, unclear etiology, probably septic versus medication side effect, resolved Completed IV Zosyn 6. Acute DKA, HgbA1c 11.8, in a known type II DM patient. DKA is resolved Blood sugars are fluctuating. Continue with Lantus 10 units BID, insulin sliding scale ACHS with blood glucose checks 7. GONSALO, likely prerenal secondary to dehydration, unclear previous baseline Creatinine today is 1.67 from 5.06 on admission Renal ultrasound is unremarkable for obstructive uropathy Nephrology following, continue to trend 8. Hypokalemia, K 2.7, replaced, recheck in a.m. 9.?Acute fluid overload, resolved Continue to monitor off Lasix 10.?Thrombocytopenia, unclear etiology, resolved, 11. DVT PPx- SCDs, early ambulation Charges/Coding Visit Charges Inpatient E&M: 40550 [facility] Hosp L1
--- NOTE | 2022-09-01 14:30 | CASEMGMT ---
RADHA GRIGSBY notified pt will need ST at al as well. RADHA GRIGSBY in to pt room, pt lying in bed with present. Pt and would like to go to [facility] for therapies. Green sheet on chart for this to be given to him at al. Pt is aware. Denies further needs.
[2022-09-01 17:10] LABS: Bedside Glucose 215 mg/dL (74-106)
--- NOTE | 2022-09-01 19:25 | PN.RENAL_ITS ---
Subjective Subjective Following for GONSALO. The patient denies chest pain, shortness of breath, nausea, vomiting, or edema. There is no orthopnea or PND. Appetite is improving. Objective Data Objective Data Vital Signs: Vital Signs Temp Pulse Resp BP Pulse Ox O2 Del Method O2 Flow Rate 98.2 F 67 19 H 125/75 H 97 Room Air 2 09/01/22 14:42 09/01/22 14:59 09/01/22 14:42 09/01/22 14:42 09/01/22 14:42 09/01/22 14:55 08/31/22 11:43 FiO2 25 08/29/22 10:00 Oxygen Flow Rate (L/min) 2 Oxygen Delivery Method Room Air Weight: 64.7 kg Body Mass Index (BMI) 22.9 Intake & Output: Intake and Output for Last 24 Hours 08/30/22 08/31/22 09/01/22 23:59 23:59 23:59 Intake Total 1300.00 / 1300.00 470 / 470 310 / 310 Output Total 1850 / 2125 1750 / 1750 Balance -550.00 / -825.00 -1280 / -1280 310 / 310 Lab / Micro Data Result Diagrams: 09/01/22 05:00 09/01/22 05:00 Labs: Laboratory Results - last 24 hr 08/31/22 20:21: POC Glucose 125 H 09/01/22 05:00: WBC 9.6, RBC 4.18 L, Hgb 13.0, Hct 39.1 L, MCV 93.5, MCH 31.1, MCHC 33.2, RDW Std Deviation 41.0, RDW Coeff of Mika 11.9, Plt Count 637 H, MPV 8.3, Immature Gran % (Auto) 0.300, Neut % (Auto) 75.9 H, Lymph % (Auto) 14.9 L, [place] % (Auto) 8.4, Eos % (Auto) 0.0, Baso % (Auto) 0.5, Absolute Neuts (auto) 7.3, Absolute Lymphs (auto) 1.42, Nucleated RBC % 0 09/01/22 05:00: Sodium 149 H, Potassium 2.7 L*, Chloride 108 H, Carbon Dioxide 34.0 H, Anion Gap 7, BUN 37 H, Creatinine 1.67 H, Estim Creat Clear Calc 47.89, Est GFR (MDRD) Af Amer 56 L, Est GFR (MDRD) Non-Af 46 L, BUN/Creatinine Ratio 22.2 H, Glucose 50 L, Calcium 9.4, Magnesium 2.8 H, Total Bilirubin 0.50, AST 30, ALT 57, Alkaline Phosphatase 182 H, Total Protein 7.1, Albumin 2.6 L, G lobulin 4.5 H, Albumin/Globulin Ratio 0.6 L 09/01/22 06:04: POC Glucose 61 L 09/01/22 06:32: POC Glucose 74 09/01/22 11:46: POC Glucose 459 H* 09/01/22 16:43: POC Glucose 215 H Micro: Microbiology 08/22/22 10:50 Blood Culture (Wb) - Anticubital Right Blood Culture - Final No growth in 5 days. 08/23/22 10:35 Sputum, Induced/Lukens Gram Stain - Final 08/23/22 10:35 Sputum, Induced/Lukens Respiratory Culture - Final Presumptive C albicans Klebsiella oxytoca 08/22/22 10:35 Urine Catheter - [place] Urine Culture - Final Culture exhibits no growth. Physical Exam Narrative Alert and oriented x3, slow to answer questions no obvious distress no JVD Normal s1s2, no murmurs lungs clear to auscultation bilaterally abdomen soft, nontender, no guarding or rebound no edema of the lower extremities Assessment & Plan Assessment/Plan (1) Acute kidney failure: (2) Hypernatremia: (3) Hypokalemia: (4) Hypertension: PLAN: Plan Acute kidney injury: - Creatinine on admission was 5.06 mg/dL on 08/21/2022. Reviewed labs from PCP: Serum creatinine on 06/25/2022 was 1.03 mg/dL. -Serum creatinine improved to 1.54 mg/dL on 08/30/2022. -Fluctuation of serum creatinine over the past 3 days is likely due to hemodynamic changes. Serum creatinine is stable today at 1.67 mg/dL. -He is no longer on scheduled Lasix. Reassess volume status daily. -No acute indications for renal replacement therapy. -Reviewed with patient importance of good blood sugar control, good diabetic control. Avoiding nephrotoxic agents (patient had been taking NSAIDs). Urine protein creatinine ratio 1.2 g. So, he likely has underlying CKD from diabetic kidney disease. We will arrange for follow-up in [place] office. -Continue to follow renal function while the patient is here. Hypernatremia: -Likely due to diuresis. Agree with stopping scheduled Lasix. -Encourage water intake when thirsty. -Recheck serum sodium tomorrow. Hypokalemia: -Likely due to diuresis. Potassium level is 2.7 mmol/L. Magnesium level is okay at 2.8 mg/dL today. -Replacing potassium deficits. He is on potassium chloride at 40 mEq twice a day. Recheck potassium and magnesium level tomorrow. Hypertension: -BP is acceptable on current dose of metroprolol tartrate. -Once renal function stabilizes, we will start GRADY inhibitor or ARB since the patient likely has diabetic kidney disease.
[2022-09-01] MEDS: 0.9% Saline Lock 10 ML Syringe IV (21:51)
[2022-09-01 22:10] LABS: Bedside Glucose 138 mg/dL (74-106)
[2022-09-02] VITALS (8 sets, daily range): BP systolic 118–135; BP diastolic 75–77; PULSE 60–78; RESP 15–22; TEMP 36.5–36.8; O2SAT 95–99
[2022-09-02 05:05] LABS: Albumin, Serum 2.4 g/dL (3.2-5.0); BUN 27 mg/dL (7-18); BUN/Creat Ratio 21.3 RATIO (10-20); Calcium,Total 8.8 mg/dL (8.5-10.1); Chloride 107 mmol/L (98-107); Creatinine, Serum 1.27 mg/dL (0.70-1.30); EST Glomerular Filtration Rate 64 mL/min (>60); Est Glom Filt Rate - Afr Amer 77 mL/min (>60); Estimated Creatinine Clearance 62.97 ml/min; Glucose 93 mg/dL (74-106); Magnesium 2.5 mg/dL (1.6-2.6); Phosphorus 3.5 mg/dL (2.5-4.9); Potassium 3.4 mmol/L (3.5-5.1); Sodium Level 142 mmol/L (136-145)
[2022-09-02] MEDS: Insulin Glargine-YFGN 100 UNIT/ML Pen 10 UNIT SC (06:42)
[2022-09-02] MEDS: Potassium Chloride Oral Tablet 20 MEQ 40 MEQ PO (08:07)
[2022-09-02] MEDS: Menthol/Lanolin/Calamine/Znox 113 GM Tube 1 APPLIC TOPICAL (08:07)
[2022-09-02] MEDS: Metoprolol Tartrate 50 MG Tablet PO (08:08)
[2022-09-02] MEDS: Enoxaparin 40 MG/0.4 ML Syringe SC (08:08)
[2022-09-02 08:50] LABS: Bedside Glucose 122 mg/dL (74-106)
--- NOTE | 2022-09-02 11:21 | PCM.DC ---
Discharge Instructions Diet Discharge Diet: Low fat / Low cholesterol, 1800 Calorie Control Diet, 2000 mg Sodium Diet and - ([place] thick liquid) Activity Discharge Activity: Return to Normal Activity Follow Up Care Test Results: Test results from this visit will be discussed in further detail at your follow-up appointment, if applicable. Discharge Plan Admission Admit Date/Time: 08/21/22 13:30 Primary Reason for Your Visit: Acute DKA/encephalopathy Attending Provider: Ana María Reed Primary Care Provider: Jolly Cardenas Consulting Providers: Sean Ace ; Christina Manuel ; Jamel Cole ; [place] Instructions Additional Instructions / Restrictions: Take note of changes to your medications Keep a log of your blood sugars Follow-up with nectar thick liquid diet to prevent aspiration You have been referred for outpatient PT/OT/ST Follow-up with your primary care doctor within 1 week. You will need repeat blood work at that visit to check on your potassium levels and your kidney function Follow-up with clinical operations specialist within 2-week Discharge Orders/Prescriptions Prescriptions: New insulin glargine-yfgn 100 unit/mL (3 mL) Insulin Pen 10 unit subcut 0600,1800 10 Days Qty: 2 0RF potassium chloride [Klor-Con M20] 20 mEq Tablet,Er Particles/Crystals 40 meq PO BIDCM 3 Days Qty: 12 0RF pantoprazole 40 mg Tablet,Delayed Release (Dr/Ec) 40 mg PO BID 30 Days Qty: 60 0RF metoprolol tartrate 50 mg Tablet 50 mg PO BID 30 Days Qty: 60 0RF Discontinued Toujeo SoloStar U-300 Insulin 300 unit/mL (1.5 mL) Insulin Pen 50 unit SUBCUT DAILY insulin lispro 100 unit/mL insulin pen 15 unit SUBCUT BID Referrals / Follow Up: Jolly Cardenas, [Primary Care Provider] - In 1 Week NOT,DEFINED [Non-Staff] - Lei Peacock MD [Med Staff - Courtesy Staff] - Within 2 Weeks Disposition Disposition (needs filled in before D/C Order can be placed): Home, Self Care
--- NOTE | 2022-09-02 11:29 | DS.PCM_ITS ---
Providers Date of Admission: 08/21/22 Date of Discharge: 09/02/22 Primary Care Physician: Dr. Jolly Cardenas, Consultations 08/21/22 22:14 Consult: Brancher / Pulmonary Medicine Routine Consulting Provider: Jmael Cole Reason for Consult: DKA EMERGENT Consult: No Notified: Yes Date Notified: 08/21/22 Time Notified: 22:14 Method of Notification: Text 08/23/22 09:49 Consult: Nephrology Routine Consulting Provider: Marine Field Reason for Consult: GONSALO EMERGENT Consult: No Notified: Yes Date Notified: 08/23/22 Time Notified: 10:36 Method of Notification: Answering Service Reason For Visit: DKA Diagnosis Discharge Diagnosis (1) Acute kidney failure: Status: Acute Code(s): N17.9 - Acute kidney failure, unspecified (2) Hypernatremia: Status: Acute Code(s): E87.0 - Hyperosmolality and hypernatremia (3) Hypokalemia: Status: Acute Code(s): E87.6 - Hypokalemia (4) Hypertension: Status: Chronic Code(s): I10 - Essential (primary) hypertension Plan 1. Severe oropharyngeal dysphagia 2. Severe hypokalemia 3. Acute encephalopathy, probable acute hepatic encephalopathy 4. Acute respiratory failure, unclear etiology, probable acute Klebsiella pneumonia 5. Shock, unclear etiology, probably septic versus medication side effect, resolved 6. Acute DKA 7. Type 1 DM 8. GONSALO 9. Hypokalemia 10.?Acute fluid overload, resolved 11.?Thrombocytopenia, unclear etiology, resolved Medications at Discharge Home Medications insulin glargine-yfgn 100 unit/mL (3 mL) subcutaneous pen 10 unit (0.1 mL) subcut 0600,1800 10 days #2 mL 09/02/22 metoprolol tartrate 50 mg tablet 50 mg PO BID 30 days #60 tabs 09/02/22 pantoprazole 40 mg tablet,delayed release 40 mg PO BID 30 days #60 tabs 09/02/22 potassium chloride 20 mEq tablet,extended release(part/cryst) (Klor-Con M) 40 meq PO BIDCM 3 days #12 tabs 09/02/22 Hospital Course Operations None Procedures 2-D Echocardiogram Summary of Care Provided Minutes Spent on Discharge: 35 Hospital Course: 52-year-old with past medical history of type I DM, insulin-dependent, who presented to the hospital with altered mental status, nausea and vomiting ongoing for the last few days prior to arrival. Patient had not taken his insulin for more than 24 hours prior to admission. Patient was found to be in acute DKA. He was admitted to the ICU and managed on DKA protocol. After his discharge, patient was noted to be severely agitated and given Haldol. He was started on Precedex drip. Patient had periods of apnea and hypotension on Precedex. Patient continued to be severely agitated. CT of the head was unremarkable. His family denied any heavy alcohol drinking. He was intubated on 08/23/22. He was continued on the DKA protocol. He had acute kidney injury that improved with hydration. Patient was noted to be hypernatremic, started on D5 water. Nephrology was consulted. Family requested that patient be extubated and he was extubated on 08/24/31. He however was persistently agitated and confused and given Ativan and Precedex. He was reintubated per family preference so MRI and EEG can be obtained. Teleneurology was consulted. MRI and EEG were unremarkable. Ammonia was elevated and was started on lactulose. His liver function was fluctuating. Patient spent a long time in the ICU on account of acute encephalopathy. He was found to be fluid overloaded and was started on Lasix with improvement. Patient was eventually extubated on 08/29/22. Post extubation, he remained confused and was started on Seroquel. Patient had difficulty swallowing and speech therapy was consulted. Patient underwent modified barium swallow and was managed on modified textured diet. Patient improved overall and did not require oxygen. He was taken off Lasix. He continue to ambulate with a walker. He did not require oxygen at discharge. He had about was discharged with an outpatient prescription for PT/OT/speech therapy. He was strongly advised to continue on a modified diet -nectar thick liquid diet. He will need to follow- up with his primary care doctor within 1 week. He also need to follow-up with endocrinology in the outpatient. Physical Exam Narrative Physical exam: General: Alert oriented x3, not pale, off oxygen HEENT: Atraumatic Oral: Moist Mucosa Neck: Supple Lungs: Diminished to auscultation Cardiovascular: HS I+II, regular, no murmurs Abdomen: Bowel Sounds Present, Soft, Non Tender Extremities: Bilateral leg edema, trace Skin: No rashes, No breakdown Neurological: Grossly intact Psych/Mental Status: Appropriate Weight / BMI Weight Weight: 64.4 kg Body Mass Index (BMI) 22.9 ABG / Lab / Microbiology Data Result Diagrams: 09/01/22 05:00 09/02/22 04:45 Laboratory: Laboratory Results - last 24 hr 09/01/22 11:46: POC Glucose 459 H* 09/01/22 16:43: POC Glucose 215 H 09/01/22 21:46: POC Glucose 138 H 09/02/22 04:45: Sodium 142, Potassium 3.4 L, Chloride 107, Carbon Dioxide 29.0, BUN 27 H, Creatinine 1.27, Estim Creat Clear Calc 62.97, Est GFR (MDRD) Af Amer 77, Est GFR (MDRD) Non-Af 64, BUN/Creatinine Ratio 21.3 H, Glucose 93, Calcium 8.8, Phosphorus 3.5, Magnesium 2.5, Albumin 2.4 L 09/02/22 08:06: POC Glucose 122 H Microbiology: Microbiology 08/22/22 10:50 Blood Culture (Wb) - Anticubital Right Blood Culture - Final No growth in 5 days. 08/23/22 10:35 Sputum, Induced/[place] Gram Stain - Final 08/23/22 10:35 Sputum, Induced/[place] Respiratory Culture - Final Presumptive C albicans Klebsiella oxytoca 08/22/22 10:35 Urine Catheter - [place] Urine Culture - Final Culture exhibits no growth. D/C Instructions Discharge Diet: Low fat / Low cholesterol, 1800 Calorie Control Diet, 2000 mg Sodium Diet and - ([place] thick liquid) Meaningful Use Info Meaningful Use Diagnoses (Choose all that apply): None applicable Discharge Plan Admission Admit Date/Time: 08/21/22 13:30 Primary Reason for Your Visit: Acute DKA/encephalopathy Attending Provider: Ana María Reed Primary Care Provider: Jolly Cardenas Consulting Providers: Sean Ace ; Christina Manuel ; Jamel Cole ; Marine Field Instructions Additional Instructions / Restrictions: Take note of changes to your medications Keep a log of your blood sugars Follow-up with honey thick liquid diet to prevent aspiration You have been referred for outpatient PT/OT/ST Follow-up with your primary care doctor within 1 week. You will need repeat blood work at that visit to check on your potassium levels and your kidney function Follow-up with senior resident care director within 2-week Discharge Orders/Prescriptions Prescriptions: New insulin glargine-yfgn 100 unit/mL (3 mL) Insulin Pen 10 unit subcut 0600,1800 10 Days Qty: 2 0RF potassium chloride [Klor-Con M20] 20 mEq Tablet,Er Particles/Crystals 40 meq PO BIDCM 3 Days Qty: 12 0RF pantoprazole 40 mg Tablet,Delayed Release (Dr/Ec) 40 mg PO BID 30 Days Qty: 60 0RF metoprolol tartrate 50 mg Tablet 50 mg PO BID 30 Days Qty: 60 0RF Discontinued Toujeo SoloStar U-300 Insulin 300 unit/mL (1.5 mL) Insulin Pen 50 unit SUBCUT DAILY insulin lispro 100 unit/mL insulin pen 15 unit SUBCUT BID Referrals / Follow Up: Jolly Cardenas DO [Primary Care Provider] - In 1 Week Lei Peacock MD [Med Staff - Courtesy Staff] - Within 2 Weeks NOT,DEFINED [Non-Staff] - Disposition Disposition (needs filled in before D/C Order can be placed): Home, Self Care Charges/Coding Visit Charges Inpatient E&M: 01534 Disch Hosp >30min
== END 2022-09-02 12:30 | disposition home or self-care (01) | DRG 682 ==
LOC: ED 15:09 → ICU 16:45
PROVIDERS: Family Medicine; Internal Medicine; Internal Medicine Critical Care Medicine; Internal Medicine Nephrology; Admitting Provider Family Medicine; Emergency Provider Emergency Medicine; Visit Provider Internal Medicine
DX: N17.9 Acute kidney failure, unspecified (principal); A41.9 Sepsis, unspecified organism; R65.21 Severe sepsis with septic shock; J96.01 Acute respiratory failure with hypoxia; E10.10 Type 1 diabetes mellitus with ketoacidosis without coma; J15.0 Pneumonia due to Klebsiella pneumoniae; G93.41 Metabolic encephalopathy; E87.0 Hyperosmolality and hypernatremia; E87.1 Hypo-osmolality and hyponatremia; R18.8 Other ascites; D69.6 Thrombocytopenia, unspecified; Z79.4 Long term (current) use of insulin; E86.0 Dehydration; K52.9 Noninfective gastroenteritis and colitis, unspecified; E87.6 Hypokalemia; E87.8 Other disorders of electrolyte and fluid balance, not elsewhere classified; K75.9 Inflammatory liver disease, unspecified; I10 Essential (primary) hypertension; Z87.891 Personal history of nicotine dependence; Z91.199 Patient's noncompliance with other medical treatment and regimen due to unspecified reason; K76.82 Hepatic encephalopathy; R13.12 Dysphagia, oropharyngeal phase
CPT/HCPCS: 31500; 31720; 36569; 36600; 51702; 70450; 70551; 71045; 74018; 74230; 76705; 76770; 80048; 80053; 80061; 80069; 80076; 80307; 81001; 82009; 82140; 82550; 82570; 82803; 82947; 82962; 82977; 83036; 83540; 83615; 83690; 83735; 84100; 84156; 84443; 84478; 85025; 87040; 87070; 87077; 87086; 87186; 87205; 87641; 92526; 92610; 92611; 93005; 93306; 94002; 94003; 94640; 94660; 94762; 95819; 97116; 97162; 97166; 97530; 97535; 97802; 97803; 99251; 99252; 99285; J7030; J7050; J7120; Q9957; A4216; G0463; J1940; J2405; J3010; J3486; J7799

== ENCOUNTER 2022-09-10 10:49 | Outpatient (RCR) | payer OTHER, SELFPAY ==
--- NOTE | 2022-09-10 12:57 | HP.PTEVAL_ITS ---
Patient's Visit Information DANIAL GARCIA is a 52 year old M referred to Physical Therapy by Dr. Ana María Reed MD with a diagnosis of Debility. Date of Evaluation: 09/10/22 Physical Therapist: Bashir Villagomez DPT - Visit Plan Frequency: 1x/Week Duration: 1 Week Plan: pt. was evaluated and does not require PT at this point in time. He is overall doing very well. I educated him on continuing with a walking program and getting back into his normal daily activities. Pt. agrees. Pt. will be DC back to physician at this point in time. - Subjective Pt. is here today for his initial evaluation with debility. He was recently discharged from the hospital after having diabetic ketoacidosis. Pt. was ultimately intubated at the hospital for several days. He reports not remember any of this time. He was DC'd from the hospital on on 09/02/22. He reports overall doing much better. He works as a subcontractor replacing bathrooms. He is not back to work yet, but plans on returning by next month or the middle of the next month. Pt. reports no pain currently. He also reports his energy levels and functional ability has very much improved over the past few days. - Objective POSTURE: Pt. has good posture in stance. No abnormalities noted. Pt. did have 2 skin abrasions (healing abrasions) on bilateral elbow. He reports repeated trying to push him self up in bed while at hospital. PALPATION: pt. has no pain with palpation throughout BLEs. No pitting edema noted. NEURO: normal sensation thorughout BLEs. Pt. has 2+ DTR of Achilles and Patellar tendons. ROM: Pt. has normal knee and hip ROM. Pt. has tight HS, but no major issues noted. MMT: RLE: ankle 5/5 throughout: knee: ext 57.4#, flexion 33.9#, hip: flexion 31.3#, abd 27#. LLE: ankle 5/5 throughout; knee; ext 54.4#, flexion 31.7#; hip: flexion 28.3#, abd 26.4#. GAIT: Pt. has normal gait pattern without use of AD. - Balance/Special Test Scores Functional Gait Assessment Score: 30 % Disability: 0 Lower Extremity Functional Score: 70 TUG Test Time Seconds: 8.01 6 Minute Walk Test: 1391 feet without AD, 6 minutes. No fatigue note - Rehabilitation Potential Physical Therapy Diagnosis: Pt. is overall doing well. He did have some debility and weakness after initially going on form the hospital. At this current time he is doing much better and does not need PT at this current time. Rehabilitation Potential: Excellent - Anticipated Interventions Patient/Client Instruction: Educate patient on: Condition, Plan of Care, Risk Factors, Benefits of Fitness Program Thank you for the opportunity to evaluate your patient. For Medicare and Medicare HMO plans, please review the plan of care and approve it. It will need to be FAXED BACK to us at [phone] for Medicare purposes. For Medicare only, by signing this I certify the plan of care. Please let me know if there are questions or concerns regarding this plan of care. Physician Signature: Date:
--- NOTE | 2022-09-10 17:25 | HP.SP.EV_ITS ---
History - History Date of Eval: 09/10/21 Results: Wellington is a 52 year old male who was seen at [facility] for a dysphagia evaluation. Pt was referred following a modified barium swallow completed that was completed at the hospital. Pt was treated at the hospital due to blood sugar issues related to the Pt's diabetes and he was intubated in the ICU. Pt reports that he is now doing well at home and the issues have resolved Smoking Status: Former smoker Hx Smoking Cessation Date: 08/26/11 Hx Tobacco Use: No - Pain Is pain an issue with your current prescribed condition?: No Patient Allergies - Allergies Allergies No Known Allergies Allergy (Verified 08/21/22 12:24) Subjective Dysphagia - Symptoms Reported Symptoms/Problems with: Hx of Aspiration, Hx of Pneumonia - Current Diet Liquids Current Liquids: Honey Thick Objective Dysphagia - Administered by Administered by: Self - Thin Liquids Administred via: Cup, Straw Oral Transit: No movement observed Bolus clearance: fully cleared Gagging: No Cough: none observed/unable to assess Patient Report: Pt consumed thin liquids with no s/s of aspiration - Pureed Administered via: Spoon Oral Transit: WNL Bolus clearance: fully cleared Gagging: No Cough: none observed/unable to assess - Regular Oral Preparation: WNL Oral Transit: WNL Bolus clearance: some clearance/residue Gagging: No Cough: none observed/unable to assess Patient Report: Slight oral residue after granola bar, cleared by liquid wash - Impact Impact on Safety & Functioning: No Limitations - Recommendations Modified Barium Swallow/Cookie Swallow Recommended: No Swallowing Treatment: No - Diet Texture Recommendations Solids: Regular (Level 7) Liquids: Thin (Level 0) - Safety Saftey Precautions/Swallowing Recommendations (Check all that Apply): Reduce Distractions, Upright Position at Least 30 Minutes After Meals, Small Sips & Bites when Eating, Multiple Swallows, Alternate Liquids & Solids - Results Swallowing Within Normal Limits: Yes Swallowing Diagnosis: Oropharyngeal Phase Dysphagia (R13.12) Severity: Mild Modified Barium Results Hx MBS Report Entered: Yes MBS Results (from prior exam): 09/10/22 17:24 Speech Therapy by Ligia Ceja [facility] Speech Pathology [address] [place] [address] Modified Barium Swallow Study MR#: [id number] Acct: [id number] Name: DANIAL GARCIA Rep #:[id number] : 1970 52 From: Joanna Ga M.A., [facility]-GI TECHNICIAN Modified Barium Swallow - Patient Information Study Date: 08/31/22 Study Time: 15:30 Direct Billable Minutes: 130 Total Minutes procedure & reportin Diagnosis: oropharyngeal dysphagia R13.12 Referring Physician: Edil Meredith Reason for Referral: Pt. referred for MBSS due to overt s/s of aspiration with diet trials and to objectively determine least restrictive diet and swallow function. Medical History: DANIAL GARCIA, is a 52 M who presents to the hospital with altered mental status. He cannot provide much history cements the history was obtained by the and chart review. He has been having some nausea and vomiting for the last several days and has not taken his insulin, for at least the last 24 hours according to the . She stated that his generalized illness started about 2 days ago and he has been slowly getting worse. He is a type I diabetic and he is not in our computer system so we do not have any baseline labs. Medical History (Updated 08/21/22 @ 13:54 by Billy Whelan MD) Santos's palsy Diabetes Current Diet Ordered: Easy to Chew, NO LIQIUDS - Supervision/Assist feed Dentition: WNL Mental Status: WNL Respiratory Status: Oxygenating on Room Air - Penetration-Aspiration Scale Penetration-Aspiration Scale: OBJECTIVE ASSESSMENT OF SWALLOW FUNCTION (QUANTITATIVE ? PER TRIAL): PENETRATION / ASPIRATION SCALE (WOOTEN): 1 = does not enter airway 2 = enters airway/above vocal folds/ejected 3 = enters airway/above vocal folds/not ejected 4 = enters airway/contacts vocal folds/ejected 5 = enters airway/contacts vocal folds/not ejected 6 = enters airway/below vocal folds/ejected 7 = enters airway/below vocal folds/not ejected despite effort 8 = enters airway/below vocal folds/no effort - Penetration-Aspiration Scale Score Thin Liquid via teaspoon Result: 5= enters airways/contacts vocal folds/not ejected Thin Liquid via teaspoon Trial 2 Result: 1= does not enter airway Thin Liquid via small single sip from cup Result: 7= enters airways/below vocal folds/not ejected despite effort - cough following swallow Thin Liquid via small single sip from cup Trial 2 Result: 3= enters airways/above vocal folds/not ejected Thin Liquid via single sip from straw Result: 7= enters airways/below vocal folds/not ejected despite effort - cough after swallow [place] Thick Liquid via small single sip from cup Result: 5= enters airways/contacts vocal folds/not ejected - delayed cough following swallow [place] Thick Liquid via small single sip from cup Trial 2 Result: 3= enters airways/above vocal folds/not ejected Honey Thick Liquid via small single sip from cup Result: 3= enters airways/above vocal folds/not ejected Honey Thick Liquid via teaspoon Result: 3= enters airways/above vocal folds/not ejected - delayed cough following 3rd swallow of single bolus Pudding via teaspoon Result: 3= enters airways/above vocal folds/not ejected - significant residue in valleculae following trial and unable to clear with multiple swallows. delayed cough following bolus; pt. stated texture made him gag Pudding Result: 1= does not enter airway - esophageal scan completed Cookie via teaspoon Result: 1= does not enter airway - 09/02 Loorna Doone trialed, pt. presented with decreased mastication of bolus and swallowed incomplete masticated piece of cookie which appeared to get stuck in valleculae and cleared with re-swallow and thin tsp trial Thin Liquid via teaspoon Effortful swallow Trial 3 Result: 1= does not enter airway Thin Liquid via teaspoon Chin tuck Trial 4 Result: 1= does not enter airway - Oral Phase Labial Seal: Interlabial escape, no progression to anterior lip Tongue Control During Bolus Hold: Cohesive bolus between tongue to palatal seal Bolus Preparation/Mastication: Disorganized chewing/mashing with solid pieces of bolus unchewed Bolus Transport/Lingual Motion: Repetitive/disorganized tongue motion Oral Residue: Majority of bolus remaining - Pharyngeal Phase Initiation of Pharyngeal Swallow: Bolus head in pyriforms Soft Palate Elevation: No bolus between soft palate and pharyngeal wall Laryngeal Elevation: Partial superior movement thyroid cart/partial apprx aryt- epig petiole Anterior Hyoid Excursion: Partial anterior movement Epiglottic Movement: No inversion - partial inversion at the beginning of MBSS with thin liquid textures, inversion decreased as study progressed to honey, puree textures Laryngeal Vestibule Closure at Height of Swallow: Incomplete; narrow column of air/contrast in laryngeal vestibule Pharyngeal Stripping Wave: Absent Pharyngoesophageal Segment Opening: Parital distension and partial duration; parital obstruction of flow Tongue Base Retraction: Narrow column of contrast between tongue base & post. pharyngeal wall Pharyngeal Residue: Collection of residue within or on pharyngeal structures - collection of residue primarily in valleculae, with mild to moderate residue along pyriform sinuses - Esophageal Phase Esophageal Clearance: Esophageal retention - Treatment Strategies Effects of treatment strategies attemped:: Swallow strategies of multiple swallow and effortful swallow were trialed with all textures due to oral and pharyngeal residuals with mild improvement in residuals. However, a moderate amount of residuals remained with puree and cookie trials. Chin tuck was trialed due to penetration and aspiration and residuals. With chin tuck, no aspiration/penetration was observed. However, view was limited due to shoulder obstructing view of laryngeal vestibule. - Diagnosis/Impression Diagnosis: severe oropharyngeal dysphagia R 13.12 Impression: Pt. presents with oral phase dysphagia characterized by decreased labial seal, mastication, and anterior-posterior transfer resulting in: - anterior leakage to lips - decreased clearance of bolus resulting in significant oral residuals Pt. presents with pharyngeal dysphagia characterized by decreased tongue base retraction, delayed swallow initiation, decreased laryngeal elevation, anterior hyoid movement and decreased pharyngeal constriction resulting in: - premature spillage to the valleculae and pyriform sinuses - decreased epiglottic deflection resulting in decreased airway protection - residuals in valleculae and pyriform sinsus - penetration and aspiration Pt. presented with immediate cough and/or a delayed cough with penetration and aspiration. However, pt. was unable to evacuate penetrated/aspirated material with coughing attempt. Pt. is suspected of penetrating and/or aspirating pharyngeal residuals after/between swallows due to delayed cough and increase in trace shadow in the laryngeal vestibule being present before next trial given. Pt. also presented with hoarse/raspy vocal quality. Spouse was present for the MBSS and pt. and spouse was educated and shown concerns on the video by GI TECHNICIAN. GI TECHNICIAN followed-up with family following MBSS and educated pt. and spouse on recommendations following study. - Recommendations Diet: Honey-thick Liquids - via tsp only Comment: discontinue po intake with increased coughing following swallows, pt. would benefit from small amounts (5-8 tsp) of po honey thick trials at a time. Compensatory Strategies: Small Sips, No Straws, Liquid by Teaspoon Only, Feed only when alert, Multiple Swallows, Sitting upright, Remain sitting upright for 30 minutes after PO intake Supervision: 1:1 Close Supervision Recommend Repeat Modified Barium Swallow: TBD - Repeat MBSS as strength improves, overt signs and symptoms of aspiration decrease and is recommended by GI TECHNICIAN Need for Skilled Speech Therapy Services: Yes Comment: Skilled ST services to address continued diet texture analysis and tolerance of po diet, oropharyngeal exercises and training in safe swallow strategies to decrease risk of aspiration/penetration. Education Completed: 1. Described result of evaluation., 2. Pt understands evaluation & agrees with goals and treatment plan., 4. Family/caregivers understand evaluation & agree w/ goals & tx plan. - Status Active ST Patient: Active 08/31/22 1742 <Electronically signed by Joanna clifford M.A. CCC-GI TECHNICIAN> Date/Time Joanna Ga M.A. CCC-GI TECHNICIAN Co-Signature Required for all Medicare patients Date/Time Co-Signature CC: ~ Initialized on 09/10/22 17:24 - END OF NOTE Swallowing Performance Scale - Swallowing Performance Scale Swallowing Performance Scale Result: 2 Within Functional Limit Plan - Plan Plan: Pt presents with mild oropharyngeal dysphagia re: oral residue left in mouth after regular textures. Pt has made great improvements since the MBSS completed on 08/31/21. Regular textures with thin liquids are recommended. Will rx continued oropharyngeal exercises for swallowing and use of compensatory strategies re: sitting up right after meal, double swallow, reduced distractions, small sips + bites, alt. sips & bites. Pt can independently use these strategies to clear residue left in mouth and complete strengthening exercises. No skilled treatment is warranted at this time. Will rx if pt status changes following a script from - Recommendations MBS: No Treatment Warranted: No Treatment Warranted: Dysphagia - Progress Prognosis: Excellent Education - Patient has Indicated that the Following Identified Educational Needs: None The Patient has indicated that they have no educational or learning abilities that may effect their care.: Yes - Patient Instruction Patient Education: Diagnosis, Safety Precautions, Home Exercise Program Person Taught: Patient Teaching Method: Discussion, Demonstration, Handout Response to teaching: Verbalize understanding
== END 2022-09-10 19:00 | disposition home or self-care (01) ==
LOC: SP 10:49
PROVIDERS: Referring Provider Internal Medicine
DX: R13.12 Dysphagia, oropharyngeal phase (principal); R53.81 Other malaise
CPT/HCPCS: 92610; 97161

== ENCOUNTER → 2023-08-12 | Outpatient (CLI) | payer OTHER, SELFPAY ==
[2023-08-12 12:02] LABS: Microalbumin,Random Urine 7.1 mg/L (NO RANGE EST.); Microalbumin:Creatinine Ratio 4.9 mg/g CRE (<30 mg/g CRE)
[2023-08-12 12:07] LABS: ALB/GLOB Ratio 1.2 RATIO (0.9-2.4); AST(SGOT) 24 U/L (15-37); Alanine Aminotransfer ALT/SGPT 35 U/L (16-61); Alkaline Phosphatase 69 U/L (45-117); Anion Gap 7 (5-15); BUN 19 mg/dL (7-18); BUN/Creat Ratio 15.1 RATIO (10-20); Calcium,Total 8.7 mg/dL (8.5-10.1); Chloride 107 mmol/L (98-107); Cholesterol 180 mg/dL (200); Creatinine, Serum 1.26 mg/dL (0.70-1.30); EST Glomerular Filtration Rate 64 mL/min (>60); Est Glom Filt Rate - Afr Amer 77 mL/min (>60); Globulin 3.3 g/dL (2.2-4.2); Glucose 137 mg/dL (74-106); High Density Lipoprotein 59 mg/dL; Potassium 4.2 mmol/L (3.5-5.1); Protein, Total 7.3 g/dL (6.4-8.2); Sodium Level 140 mmol/L (136-145); Thyroid Stim Hormone (TSH) 3.51 uIU/mL (0.358-3.74); Triglycerides 99 mg/dL; Very Low Density Lipoprotein 20 mg/dL (5-40)
== END | disposition home or self-care (01) ==
LOC: LAB 10:32
PROVIDERS: Referring Provider Nurse Practitioner Family; Visit Provider Nurse Practitioner Family
DX: E10.65 Type 1 diabetes mellitus with hyperglycemia (principal)
CPT/HCPCS: 36415; 80053; 80061; 82043; 82306; 82570; 84443

== ENCOUNTER → 2024-04-20 | Outpatient (CLI) | payer OTHER, SELFPAY ==
[2024-04-20 10:13] LABS: Absolute Lymphocyte Count 1.62 X10^3/uL (0.83-4.51); Basophil# 0.05 X10^3/uL; Basophil% 0.8 % (0-1); Eosinophil# 0.03 X10^3/uL; Eosinophils% 0.5 % (0-5); Hematocrit 45.5 % (40-54); Hemoglobin 15.4 g/dL (13.0-16.5); Lymphocyte # 1.62 X10^3/ul (0.83-4.51); Lymphocyte % 26.3 % (19-41); Mean Corp Hgb Conc 33.8 g/dL (32-36); Mean Corpuscular Hgb 30.6 pg (27.0-32.0); Mean Corpuscular Volume 90.3 fL (80-94); Mean Platelet Vol. 9.2 fl (6.2-12.0); Monocyte# 0.49 X10^3/uL; Monocyte% 7.9 % (0-10); NRBC Flagged by Analyzer 0 % (0-5); Neutrophil # 3.96 X10^3/uL (2.7-7.7); Neutrophil % 64.2 % (47-70); Platelet Count 219 K/mm3 (150-450); RBC Distribution Width CV 12.5 % (11.6-14.6); RBC Distribution Width SD 41.1 fl (35.1-43.9); Red Blood Count 5.04 M/mm3 (4.6-6.2); White Blood Count 6.2 K/mm3 (4.4-11.0)
[2024-04-20 11:55] LABS: Vitamin B12 374 pg/mL (211-911); Vitamin D,25 Hydroxy 30.1 ng/mL
[2024-04-20 12:09] LABS: ALB/GLOB Ratio 1.2 RATIO (0.9-2.4); AST(SGOT) 24 U/L (15-37); Alanine Aminotransfer ALT/SGPT 26 U/L (16-61); Albumin, Serum 3.7 g/dL (3.2-5.0); Alkaline Phosphatase 73 U/L (45-117); Anion Gap 9 (5-15); BUN 16 mg/dL (7-18); BUN/Creat Ratio 10.7 RATIO (10-20); Calcium,Total 8.7 mg/dL (8.5-10.1); Chloride 109 mmol/L (98-107); Cholesterol 153 mg/dL (200); Creatinine, Serum 1.49 mg/dL (0.70-1.30); EST Glomerular Filtration Rate 53 mL/min (>60); Est Glom Filt Rate - Afr Amer 64 mL/min (>60); Ferritin 177 ng/mL (26-388); Globulin 3.1 g/dL (2.2-4.2); Glucose 112 mg/dL (74-106); High Density Lipoprotein 45 mg/dL; Protein, Total 6.8 g/dL (6.4-8.2); Sodium Level 142 mmol/L (136-145); Triglycerides 155 mg/dL; Very Low Density Lipoprotein 31 mg/dL (5-40)
[2024-04-20 12:10] LABS: Microalbumin,Random Urine 8.1 mg/L (NO RANGE EST.); Microalbumin:Creatinine Ratio 6.3 mg/g CRE (<30 mg/g CRE)
[2024-04-26 15:07] LABS: Testosterone, % Free 2.77 % (1.50-4.20); Testosterone, Free 11.88 ng/dL (5.00-21.00); Testosterone, Total 429 ng/dL (264-916)
== END | disposition home or self-care (01) ==
LOC: LAB 09:33
PROVIDERS: Referring Provider Nurse Practitioner Family; Visit Provider Nurse Practitioner Family
DX: E10.65 Type 1 diabetes mellitus with hyperglycemia (principal); R53.83 Other fatigue
CPT/HCPCS: 36415; 80053; 80061; 82043; 82306; 82570; 82607; 82728; 84402; 84403; 84443; 85025

== ENCOUNTER → 2025-04-21 | Outpatient (CLI) | payer OTHER, SELFPAY ==
[2025-04-21 10:43] LABS: Cholesterol 180 mg/dL (<=200); Low Density Lipoprotein Calc. 99 mg/dL; Triglycerides 68 mg/dL; Very Low Density Lipoprotein 14 mg/dL (5-40); Vitamin B12 729 pg/mL (180-914); Vitamin D,25 Hydroxy 38.6 ng/mL (30-100); cholesterol:hdl ratio screen 2.65
[2025-04-21 10:46] LABS: AST(SGOT) 30 U/L (<=37); Alanine Aminotransfer ALT/SGPT 29 U/L (<=46); Albumin, Serum 4.4 g/dL (3.5-5.0); Alkaline Phosphatase 70 U/L (40-129); Anion Gap 11 (5-15); BUN 17 mg/dL (4-19); BUN/Creat Ratio 14.8 RATIO (10-20); Calcium,Total 9.8 mg/dL (7.6-11.0); Carbon Dioxide 24.6 mmol/L (21.0-32.0); Chloride 104 mmol/L (98-108); Globulin 2.5 g/dL (2.2-4.2); Glucose 116 mg/dL (70-99); Potassium 4.3 mmol/L (3.3-5.1)
[2025-04-21 14:56] LABS: Creatinine, Urine (random) 18.60 mg/dL (39.00-259.00)
[2025-04-21 14:58] LABS: Microalbumin,Random Urine < 12.0 mg/L (<20 mg/L)
== END | disposition home or self-care (01) ==
LOC: LAB 08:46
PROVIDERS: Referring Provider Nurse Practitioner Family; Visit Provider Nurse Practitioner Family
DX: E10.65 Type 1 diabetes mellitus with hyperglycemia (principal); E53.8 Deficiency of other specified B group vitamins
CPT/HCPCS: 36415; 80053; 80061; 82043; 82306; 82570; 82607; 84443